=== PATIENT | male | born 1945 | race Caucasian/White ===

== ENCOUNTER 2018-06-15 15:54 | Emergency (ER) | payer OTHER ==
--- OUTSIDE RECORDS SUMMARY | 2018-06-15 15:56 | XMS REPORT ---
:1945 Author Organization eClinicalWorks Care Team Providers Name Role Phone GeorgetteParam lepe Provider Role Unavailable Encounters Encounter Location Date h & p [facility] May 03, 2015 Needs referral [facility] May 21, 2015 Social History Social History Element Qualifiers Date Reported Diet: . Do you follow a special diet? No May 03, 2015 Recreational drugs: . Do you use recreational drugs? NO May 03, 2015 Tobacco Use: . Are you a: former smoker May 03, 2015 Caffeine: . 2-3 CUPS/DAY May 03, 2015 Do you exercise? . Do you exercise? No May 03, 2015 Do you drink? . 1-2 BEERS/ 2 GLASSES OF WINE May 03, 2015 Summary Purpose eClinicalWorks Submission
--- OUTSIDE RECORDS SUMMARY | 2018-06-15 15:56 | XMS REPORT | Continuity of Care Document ---
:1945 Author Organization Interface Problems Problem Status Onset Classification Date Comments Source Date Reported TRAUMATIC Active [facility] SUBARACHNOID [address] [place] [address] Center CARMEN Active [facility] BILLING [address] [place] [address] LIFE FLIGHT # Active [place] [id number] [place] [address] Situational Active Diagnosis 12/25/2015 [facility] TRAUM SUBRAC HEM Active [facility] W/O [facility] Medications Medication Details Route Status Patient Ordering Order Source Instructions Provider Date Xanax 1 tablet Orally Active 0.5 MG Orally [place] 12/17/ [facility] Viagra 1 tablet Orally Active 50 MG Orally [place] [facility] needed Once a day 2014 [facility] Azilect 1 tablet Orally Active 1 MG Orally [place] [facility] Once [facility] day [facility] Oxybutynin 1 patch Transdermal Active 3.9 MG/24HR [place] [facility] skin [facility] Metoprolol 1 tablet Orally Active 25 MG Orally [place] [facility] Succinate ER Once a day [facility] Gabapentin 1 tablet Orally Active 100 mg Orally [place] [facility] twice a day Practice (bid) [facility] Carbidopa-Levodop 1 tablet Orally Active 25-100 MG [place] [facility] a ER every 6 Orally every 6 Practice hours hrs Assoc while awake Lovastatin 1 tablet Orally Active 20 MG Orally [place] [facility] with a Once a day Practice meal Assoc Digoxin 1 tablet Orally Active 250 MCG Orally [place] [facility] Once [facility] day [facility] Furosemide 1 tablet Orally Active 20 MG Orally [place] [facility] Once [facility] day [facility] Vitamin B Complex Unknown Orally Active Orally [facility] Pramipexole 1 tablet Orally Active 0.75 MG Orally [place] [facility] Dihydrochloride before Once a day Practice bedtime Assoc Ketoconazole Unknown Externally Active 2 % Externally [place] Eliquis 1 capsule Orally Active 5 MG Orally [place] [facility] twice a day Practice (bid) [facility] Folic Acid 1 tablet Orally Active 1 MG Orally [place] [facility] three times a [facility] day (tid) [facility] Fluconazole 1 tablet Orally Active 200 MG Orally [place] [facility] Once a week [facility] Quetiapine 1 tablet Orally Active 25 MG Orally [place] [facility] Fumarate once every Practice night prn Assoc Allergies, Adverse Reactions, Alerts Substance Category Reaction Severity Reaction Status Date Comments Source type Reported N.K.D.A. Adverse Info Not Adverse Active [facility] Reaction Available Reaction 6 [facility] Immunizations Immunization Date Given Site Status Last Comments Source Updated Influenza 12/17/2015 completed [facility] tetanus 12/17/2015 completed [facility] Pneumococcal 12/17/2015 completed [facility] Results Order Results Value Reference Date Interpretation Comments Source Name Range Chest Chest EXAM: XR CHEST 1 VIEW 06/14 - [facility] 1view DX 1view DX /2015 - [facility] DATE: 06/14/2016 10:08 AM CDT Read by: Melanie Garcia MD Dictated Date/time: 06/14/16 12:22 Electronically Signed by: Melanie Garcia MD 06/14/16 12:23 FINAL REPORT INDICATION: Abnormal chest sounds. FINDINGS: 2 AP semierect views of the chest are submitted without a prior study for comparison. The cardiothoracic ratio measures 18.8/37.5 cm. The aorta is slightly tortuous with aortic arch calcification. 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 The lungs are clear. No pleural effusions are identified. Note is made of thoracic spine osteophytes. IMPRESSION: The lungs are clear. Brain wo Brain wo EXAM: CT BRAIN WITHOUT CONTRAST 06/14 - [facility] contrast contrast /2015 - Medical CT CT This report was dictated by a Distribution Technician/Fellow. I have personally reviewed the images as Center well as the Resident's interpretation and agree with the findings. DATE: 06/14/2016 7:58 AM CDT Read by: James Rueda MD Resident: James Rueda MD Dictated Date/time: 06/14/16 07:58 Electronically Signed by: Anisa Nassar MD 06/14/16 08:55 FINAL REPORT INDICATION: Bleeding COMPARISON: None TECHNIQUE: Routine axial CT images of the brain were obtained . IV contrast: None. DLP: 1174 mGy-cm FINDINGS: Low-volume scattered areas of subarachnoid hemorrhage are seen within both frontal and parietal regions. 2 small hemorrhages are seen in the anterior right frontal lobe measuring up to 5 mm each. There is no mass effect, midline shift, or herniation. No hydrocephalus. The skull base and calvarium are intact. Incidental note of atherosclerosis involving both intracranial internal carotid arteries and left vertebral artery. IMPRESSION: 1. Scattered bilateral frontal and parietal subarachnoid hemorrhage. 2. 2 small hemorrhages in the right frontal lobe may represent contusions or shear injuries. The critical findings were discussed by the Emergency Room resident surety bond agent with Dr. Kwon in the Neuro ICU at 0310 hours on 06/14/16 Brain-Out Brain-Out EXAM: CT CERVICAL SPINE WITHOUT CONTRAST 06/13 [facility] /2015 - Medical Consult Consult This report was dictated by a Distribution Technician/ Fellow. I have personally reviewed the images as Center CT CT well as the Resident's interpretation and agree with the findings. DATE: 06/13/2016 9:10 PM CDT Read by: Tristen Fields MD Resident: Tristen Fields MD Dictated Date/time: 06/14/16 03:34 Electronically Signed by: Mt Yousif 06/14/16 07:44 FINAL REPORT INDICATION: Trauma. Outside hospital exam submitted for 2nd interpretation. COMPARISON: None TECHNIQUE: Study performed at [facility] on 2015 at 1736 hours. Volumetric acquisition of the cervical spine without contrast. Axial, sagittal and coronal reconstructions. IV contrast: None. DLP: 445 mGy-cm FINDINGS: The spine is imaged from the skull base to the level of T2. No acute fracture or malalignment is identified in the cervical spine. There are multilevel degenerative changes throughout the cervical spine, including disc osteophyte complex formation at the level of C3-C4, C5-C6 and C6- C7. Anterior thecal sac effacement noted at C6-C7 .There is mild multilevel uncovertebral hypertrophy, with mild narrowing of the neural foramina on the left at C5-C6 and C6-C7, and on the right at C6- C7. IMPRESSION: 1. No acute fracture or malalignment of the cervical spine. 2. Cervical spondylosis. Vital Signs Vital Sign Value Date Comments Source Weight 166 12/17/2015 [facility] Height 70 12/17/2015 [facility] Heart Rate 80 12/17/2015 [facility] Diastolic (mm Hg) 84 12/17/2015 [facility] Systolic (mm Hg) 134 12/17/2015 [facility] Encounters Location Location Encounter Encounter Reason Attending ADM DC Status Source Details Type Number For Provider Date Date Visit [facility] [id number] 05/03 05/03 [facility] [id number] /[id number] [facility] [id number] [facility] [id number] 05/03 05/03 [facility] [id number] /2014 [facility] [id number] [facility]oc eb65a0 [facility] [id number] 05/03 05/03 [facility] [id number] /2014 [facility] [id number] [facility]oc 4t615c [facility] [id number] 05/03 05/03 [facility] [id number] /2014 [facility] [id number] [facility]oc 819da7 [facility] [id number] 05/03 05/03 [facility] [id number] /2014 [facility] [id number]-db34da [facility]oc b435be [facility] [id number] 05/03 05/03 [facility] [id number] /2014 [facility] [id number] Assoc [id number] [facility] [id number] 05/03 05/03 [facility] [id number] /2014 [facility] [id number]-[id number] [facility]oc 8debb2 [facility] [id number] 05/03 05/03 [facility] [id number] /2014 [facility] [id number] [facility]oc 8536a5 [facility] [id number] 05/03 05/03 [facility] [id number] /2014 [facility] [id number] [facility]oc 59e9eb [facility] [id number] 05/21 05/21 [facility] [id number] /2014 [facility] [id number] Assoc 2c4b5c [facility] [id number] 05/21 05/21 [facility] [id number] /2014 [facility] [id number] Assoc c07d46 [facility] [id number] 05/21 05/21 [facility] [id number] /2014 [facility] [id number] [facility]oc abb04e [facility] [id number] 05/21 05/21 [facility] [id number] /2014 [facility] [id number] Assoc 70952k [facility] [id number] 05/21 05/21 [facility] [id number] /2014 [facility] [id number]-[id number] [facility]oc [id number] [facility] [id number] 05/21 05/21 [facility] [id number] /2014 [facility] [id number] [facility]oc 8afcd8 [facility] [id number] 05/21 05/21 [facility] [id number] /2014 [facility] [id number] Assoc [id number] [facility] [id number] 05/21 05/21 [facility] [id number] /2014 [facility] [id number]-lamu07 Assoc d4s841 [facility] [id number] 05/21 05/21 [facility] [id number] /2014 [facility] [id number] Assoc 95474a [facility] [id number] 06/06 06/06 [facility] [id number] /2014 [facility] [id number] [facility]oc a3cb59 [facility] [id number] 06/06 06/06 [facility] [id number] /2014 [facility] [id number] [facility]oc 6e0fb9 [facility] [id number] 06/06 06/06 [facility] [id number] /2014 [facility] [id number] [facility]oc bbfa1e [facility] [id number] 06/06 06/06 [facility] [id number] /2014 [facility] [id number] [facility]oc b8d72e [facility] [id number] 06/06 06/06 [facility] [id number] /2014 [facility] [id number] [facility]oc [id number] [facility] [id number] 06/06 06/06 [facility] [id number] /2014 [facility] [id number]-dhyj90 [facility]oc 4ddfcc [facility] [id number] 06/06 06/06 [facility] [id number] /2014 [facility] [id number]-[id number] [facility]oc 3bcdb8 [facility] [id number] 06/06 06/06 [facility] [id number] /2014 [facility] [id number] Assoc 2b6f07 [facility] [id number] 07/12 07/12 [facility] [id number] /2014 [facility] [id number] Assoc [id number] [facility] [id number] 07/12 07/12 [facility] [id number] /2014 [facility] [id number] Assoc [id number] [facility] [id number] 07/12 07/12 [facility] [id number] /2014 [facility] [id number]-[id number] [facility]oc 6c8c38 [facility] [id number] 07/12 07/12 [facility] [id number] /2014 [facility] [id number] Assoc 4e8ae3 [facility] [id number] 07/12 07/12 [facility] [id number] /2014 [facility] [id number] Assoc 1ea28b [facility] [id number]-9 07/12 07/12 [facility] [id number] /2014 [facility] 2cd-ff6acf Assoc ca2e00 [facility] [id number] 07/12 07/12 [facility] [id number] /2014 [facility] [id number] Assoc 959d3e [facility] [id number] 07/31 07/31 [facility] [id number] /2014 [facility] [id number]-[id number] Assoc 049e22 [facility] [id number] 07/31 07/31 [facility] [id number] /2014 [facility] [id number] Assoc 7e5c43 [facility] [id number] 07/31 07/31 [facility] [id number] /2014 [facility] [id number] Assoc 30d29c [facility] [id number]-7 07/31 07/31 [facility] [id number] /2014 [facility] [id number]-f0fab1 Assoc [id number] [facility] [id number]-[id number] 07/31 07/31 [facility] [id number] /2014 [facility] [id number] Assoc d12e22 [facility] [id number] 07/31 07/31 [facility] [id number] /2014 [facility] [id number] Assoc ba1a8e [facility] dc9c1679-7 08/01 08/01 [facility] [id number] /2014 [facility] [id number] [facility]oc 7edd38 [facility] [id number] 08/01 08/01 [facility] [id number]-b /2014 [facility] [id number] Assoc 636d26 [facility] [id number] 08/01 08/01 [facility] [id number] /2014 [facility] [id number] Assoc [id number] [facility] [id number]-[id number] 08/01 08/01 [facility] [id number] /2014 [facility] marilu-l9343y Assoc 75cd71 [facility] [id number] 08/01 08/01 [facility] [id number] /2014 [facility] [id number] Assoc vr5222 [facility] [id number] 08/01 08/01 [facility] [id number] /2014 [facility] [id number]-1305e4 Assoc 2r198d [facility] [id number] 09/05 09/05 [facility] medication [id number] /2014 [facility] [id number]-ad2fb4 Assoc 49ff4c [facility] [id number]-2 09/05 09/05 [facility] [id number] /2014 [facility] [id number]-3264b3 Assoc 3f808s [facility] [id number] 09/05 09/05 [facility] [id number] /2014 [facility] [id number] Assoc 0996b1 [facility] [id number] 09/05 09/05 [facility] [id number]-b /2014 [facility] [id number]-[id number] Assoc 9982ed [facility] [id number] 09/05 09/05 [facility] [id number] /2014 [facility] 7aa-a0ae25 Assoc cg529g [facility] [id number] 09/05 09/05 [facility] i8r-1vyt-3 /2014 [facility] [id number]-[id number] [facility]oc 1xn720 [facility] [id number]-9 09/24 09/24 [facility] [id number] /2014 [facility] [id number] Assoc v4386t [facility] 850y988j-1 09/24 09/24 [facility] [id number] /2014 [facility] [id number] Assoc i0s436 [facility] [id number] 09/24 09/24 [facility] [id number] /2014 [facility] [id number] Assoc [id number] [facility] [id number] 09/24 09/24 [facility] [id number] /2014 [facility] [id number] Assoc f8b5ae [facility] [id number] 09/24 09/24 [facility] [id number] /2014 [facility] [id number] Assoc 960498 [facility] needing [id number] 12/17 12/17 [facility] anixty [id number]-48eb-8 /2015 [facility] medication [id number]-[id number] Assoc 281d3e [facility] needing [id number]-[id number] 12/17 12/17 [facility] anixty w6i-4043-6 /2015 [facility] medication [id number] Assoc f1f82e [facility] needing 5vczj2v3-3 12/17 12/17 [facility] anixty [id number] /2015 [facility] medication [id number] Assoc 23f3c9 [facility] [id number]-3 12/17 12/17 [facility] anixty [id number] /2015 [facility] medication [id number] Assoc 4b5ff3 [facility] [id number] [facility] saray-[id number]-a /2015 [facility] [id number] Assoc 0dbd37 [facility] 3sfzpz2e-3 [facility] [id number]-[id number] /2015 [facility] [id number] Assoc 27434g [facility] mnby0z79-a [facility] [id number] /2015 [facility] [id number]-[id number] Assoc [id number] [facility] [id number]-f [facility] Advice [id number]-[id number] /2015 [facility] During amy-0e1db8 Assoc Business ce1e48 Hours [facility] 5m36jj1t-4 [facility] 489-4710-[id number] /2015 [facility] During annalise-c60acc Assoc Business cbcc3f Hours [facility] p8pr317z-[id number] 01/09 01/09 [facility] [id number] /2015 [facility] [id number] Assoc [id number] Procedures Procedure Code Date Perfomer Comments Source
--- OUTSIDE RECORDS SUMMARY | 2018-06-15 15:57 | XMS REPORT ---
:1945 Author Organization eClinicalWorks Care Team Providers Name Role Phone Param [place] Provider Role Unavailable Encounters Encounter Location Date Needs referral [facility] Jul 12, 2015 Needs referral [facility] Aug 01, 2015 Needs referral [facility] Jul 31, 2015 ED medication [facility] Sep 05, 2015 h & p [facility] May 03, 2015 Clinical Advice During Business Hours [facility] Dec Needs referral [facility] May 21, 2015 Refill [facility] January 10, 2016 Unknown [facility] June 06, 2015 Refill [facility] Jan 06, 2016 Refill [facility] Sep 24, 2015 needing anixty medication [facility] Dec 17, 2015 Medications Medication Code System Code Instructions Start Date End Date Status Dosage Xanax MEDISPAN [address] 0.5 MG Orally Dec 17, Active 1 tablet -01 once a day prn 2016 Social History Social History Element Qualifiers Date Reported Diet: . Do you follow a special diet? No January 07, 2016 Recreational drugs: . Do you use recreational drugs? NO January 07, 2016 Tobacco Use: . Are you a: former smoker January 07, 2016 Caffeine: . 2-3 CUPS/DAY January 07, 2016 Do you exercise? . Do you exercise? No January 07, 2016 Do you drink? . 1-2 BEERS/ 2 GLASSES OF WINE January 07, 2016 Summary Purpose eClinicalWorks Submission
--- OUTSIDE RECORDS SUMMARY | 2018-06-15 15:57 | XMS REPORT ---
:1945 Author Organization eClinicalWorks Care Team Providers Name Role Phone Param [place] Provider Role Unavailable Encounters Encounter Location Date Needs referral [facility] Jul 12, 2015 Needs referral [facility] Aug 01, 2015 Needs referral [facility] Jul 31, 2015 ED medication [facility] Sep 05, 2015 h & p [facility] May 03, 2015 Clinical Advice During Business Hours [facility] Dec Needs referral [facility] May 21, 2015 Unknown [facility] June 06, 2015 Refill [facility] Jan 06, 2016 Refill [facility] Sep 24, 2015 needing anixty medication [facility] Dec 17, 2015 Social History Social History Element Qualifiers [...] 2 GLASSES OF WINE January 07, 2016 Family history Qualifier Description Comment Date Reported Maternal Grandmother Comment not available January 07, 2016 Paternal Grandmother Comment not available January 07, 2016 Siblings Comment not available January 07, 2016 Maternal Grandfather Comment not available January 07, 2016 Children Comment not available January 07, 2016 Father Comment not available January 07, 2016 Paternal Grandfather Comment not available January 07, 2016 Mother Comment not available January 07, 2016 Other: Comment not available January 07, 2016 Summary Purpose eClinicalWorks Submission
--- OUTSIDE RECORDS SUMMARY | 2018-06-15 15:57 | XMS REPORT ---
:1945 Author Organization eClinicalWorks Care Team Providers Name Role Phone Param [place] Provider Role Unavailable Encounters Encounter Location Date Needs referral [facility] Jul 12, 2015 Needs referral [facility] Aug 01, 2015 Needs referral [facility] Jul 31, 2015 ED medication [facility] Sep 05, 2015 h & p [facility] May 03, 2015 Needs referral [facility] May 21, 2015 Unknown [facility] June 06, 2015 Medications Medication Code System Code Instructions Start Date End Date Status Dosage Viagra MEDISPAN 55809-516 50 MG Orally Once Sep 09, Oct 09, Active 1 tablet 0-30 a day 2014 2014 as needed Social History Social History Element Qualifiers Date [...]
--- OUTSIDE RECORDS SUMMARY | 2018-06-15 15:57 | XMS REPORT ---
:1945 Author Organization eClinicalWorks Care Team Providers Name Role Phone Param [place] Provider Role Unavailable Encounters Encounter Location Date Needs referral [facility] Jul 12, 2015 h & p [facility] May 03, 2015 Needs referral [facility] May 21, 2015 Unknown [facility] June 06, 2015 Social History Social History Element Qualifiers [...]
--- OUTSIDE RECORDS SUMMARY | 2018-06-15 15:57 | XMS REPORT ---
:1945 Author Organization eClinicalWorks Care Team Providers Name Role Phone Param [place] Provider Role Unavailable Allergies, Adverse Reactions, Alerts Substance Reaction Event Type N.K.D.A. Info Not Available Non Drug Allergy Encounters Encounter Location Date Needs referral [facility] Jul 12, 2015 Needs referral [facility] Aug 01, 2015 Needs referral [facility] Jul 31, 2015 ED medication [facility] Sep 05, 2015 h & p [facility] May 03, 2015 Needs referral [facility] May 21, 2015 Unknown [facility] June 06, 2015 Refill [facility] Sep 24, 2015 needing anixty medication [facility] Dec 17, 2015 Problems Problem Type Condition ICD-9 Code Onset Dates Condition Status Assessment Situational anxiety F41.8 Active Medications Medication Code System Code Instructions Start End Status Dosage Date Date Azilect MEDISPAN 65412-8 1 MG Orally Active 1 tablet 206-00 Once a day Oxybutynin MEDISPAN 83129-2 3.9 MG/24HR Active 1 patch to 322-02 Transdermal skin Metoprolol MEDISPAN 36951-5 25 MG Orally Active 1 tablet Succinate ER 281-01 Once a day Gabapentin MEDISPAN 04474-0 100 mg Orally Active 1 tablet 992-01 twice a day (bid) Carbidopa-Levodopa MEDISPAN 38270-9 25-100 MG Active 1 tablet ER 922-01 Orally every 6 every 6 hrs hours while awake Lovastatin MEDISPAN 61107-2 20 MG Orally Active 1 tablet 576-06 Once a day with a meal Digoxin MEDISPAN 63559-4 250 MCG Orally Active 1 tablet 822-01 Once a day Furosemide MEDISPAN 74120-5 20 MG Orally Active 1 tablet 297-25 Once a day Vitamin B Complex MEDISPAN 33301-6 Orally Active Unknown 5540 Pramipexole MEDISPAN 68543-9 0.75 MG Orally Active 1 tablet Dihydrochloride 019-98 Once a day before bedtime Xanax MEDISPAN 72600-6 0.5 MG Orally Dec 17, 1 tablet 055-01 Three times a 2016 day PRN Ketoconazole MEDISPAN 64490-8 2 % Externally Active Unknown 090-04 Eliquis MEDISPAN 38100-7 5 MG Orally Active 1 capsule 894-21 twice a day (bid) Folic Acid MEDISPAN 58156-5 1 MG Orally Active 1 tablet 507-19 three times a day (tid) Fluconazole MEDISPAN 69131-0 200 MG Orally Active 1 tablet 413-00 Once a week Quetiapine Fumarate MEDISPAN 51546-8 25 MG Orally Active 1 tablet 220-20 once every night prn Social History Social History Element Qualifiers Date Reported Diet: . Do you follow a special diet? No Dec 17, 2015 Recreational drugs: . Do you use recreational drugs? NO Dec 17, 2015 Tobacco Use: . Are you a: former smoker Dec 17, 2015 Caffeine: . 2-3 CUPS/DAY Dec 17, 2015 Do you exercise? . Do you exercise? No Dec 17, 2015 Do you drink? . 1-2 BEERS/ 2 GLASSES OF WINE Dec 17, 2015 Family history Qualifier Description Comment Date Reported Maternal Grandmother Comment not available Dec 17, 2015 Paternal Grandmother Comment not available Dec 17, 2015 Siblings Comment not available Dec 17, 2015 Maternal Grandfather Comment not available Dec 17, 2015 Children Comment not available Dec 17, 2015 Father Comment not available Dec 17, 2015 Paternal Grandfather Comment not available Dec 17, 2015 Mother Comment not available Dec 17, 2015 Other: Comment not available Dec 17, 2015 Vital Signs Date/Time: Dec 17, 2015 Weight 166 lbs Height 70 in Cardiac Monitoring Heart Rate 80 /min Blood Pressure Diastolic 84 mm Hg Blood Pressure Systolic 134 mm Hg Immunizations Vaccine Administration Date Influenza Dec 17, 2015 tetanus Dec 17, 2015 Pneumococcal Dec 17, 2015 Summary Purpose eClinicalWorks Submission
--- OUTSIDE RECORDS SUMMARY | 2018-06-15 15:57 | XMS REPORT ---
:1945 Author Organization [employer] Care Team Providers Name Role Phone Param [place] Provider Role Unavailable Encounters Encounter Location Date h & p [facility] May 03, 2015 Needs referral [facility] May 21, 2015 Unknown [facility] June 06, 2015 Social History Social History [...]
--- OUTSIDE RECORDS SUMMARY | 2018-06-15 15:57 | XMS REPORT ---
:1945 Author Organization e[employer]Works Care Team Providers Name Role Phone Param [place] Provider Role Unavailable Encounters Encounter Location Date Needs referral [facility] Jul 12, 2015 Needs referral [facility] Aug 01, 2015 Needs referral [facility] Jul 31, 2015 ED medication [facility] Sep 05, 2015 h & p [facility] May 03, 2015 Needs referral [facility] May 21, 2015 Unknown [facility] June 06, 2015 Refill [facility] Sep 24, 2015 Social History Social History Element Qualifiers [...]
--- OUTSIDE RECORDS SUMMARY | 2018-06-15 15:57 | XMS REPORT ---
:1945 Author Organization [employer]Works Care Team Providers Name Role Phone Param [place] Provider Role Unavailable Encounters Encounter Location Date Needs referral [facility] Jul 12, 2015 Needs referral [facility] Aug 01, 2015 Needs referral [facility] Jul 31, 2015 ED medication [facility] Sep 05, 2015 h & p [facility] May 03, 2015 Needs referral [facility] May 21, 2015 Unknown [facility] June 06, 2015 Refill [facility] Jan 06, 2016 Refill [facility] Sep 24, 2015 needing anixty medication [facility] Dec 17, 2015 Social History Social History [...]
--- NOTE | 2018-06-15 16:40 | RAD REPORT ---
EXAM DESCRIPTION: CT - Head Brain Wo Cont - 06/15/2018 4:29 pm CLINICAL HISTORY: Speech difficulty, unsteady gait, lightheaded, possible CVA COMPARISON: July 2016 TECHNIQUE: Axial 5 mm thick images of the head were obtained without IV contrast. All CT scans are performed using dose optimization technique as appropriate and may include automated exposure control or mA/KV adjustment according to patient size. FINDINGS: No intracranial hemorrhage, mass, edema or shift of mid-line structures. No acute cortical based infarction. No cortical edema or sulcal effacement. Mild to moderate atrophy and chronic ische dione changes are present. Ventricles are in proportion to volume loss. Intracranial findings are not s ubstantially different from 2016. Mastoid air cells and visualized portions of the paranasal sinuses are clear. No acute bony findings. IMPRESSION: Mild to moderate severity atrophy and chronic ischemic change similar to comparison. No acute findings identifiable. Chronic ischemic changes can mask nonhemorrhagic acute infarction. MR brain followup can be obtained if there is ongoing concern for acute ischemia.
[2018-06-15 16:52] LABS: Absolute Lymphocytes (CBC) 0.9 K/uL (0.7-4.9); Absolute Monocytes 0.6 K/uL (0.1-1.3); Absolute Neutrophil 7.7 K/uL (1.8-8.0); Basophils % 0.5 % (0-1.3); Eosinophils % 0.8 % (0-4.4); Hematocrit 43.3 % (39.6-49.0); MCH 31.3 pg (27.0-35.0); MCV 90.7 fL (80-100); Monocytes % 6.5 % (3.3-12.3); RBC Red Blood Cell Count 4.77 M/uL (4.33-5.43)
[2018-06-15 16:53] LABS: Protime INR 1.13
--- NOTE | 2018-06-15 16:55 | RAD REPORT ---
EXAM DESCRIPTION: RAD - Chest Single View - 06/15/2018 4:37 pm CLINICAL HISTORY: Increasing shortness of breath, dyspnea COMPARISON: March 2016 TECHNIQUE: AP portable chest image was obtained 1635 hours . FINDINGS: No focal infiltrate, mass or failure. Lung markings are similar to comparison. Pacemaker r emains in place. No new tube or line. Heart and vasculature are normal. No measurable pleural effusio n and no pneumothorax. No gross bony abnormality seen. No acute aortic findings suspected. IMPRESSION: No acute cardiopulmonary process. Chest is stable from March 2016.
--- NOTE | 2018-06-15 17:05 | EKG ---
Test Date: 2018-06-15 Test Time: 16:17:02 Business Services Tech: SHIRLEY MEASUREMENT RESULTS: Intervals: Rate: 110 HI: QRSD: 98 QT: 308 QTc: 416 [facility]: P: 94 HI: QRS: 8 T: 265 INTERPRETIVE STATEMENTS: Atrial flutter with variable AV block ST & T wave abnormality, non specific Abnormal ECG Compared to ECG 01/06/2018 10:51:22 Ventricular premature complex(es) no longer present ST (T wave) deviation still present Electronically Signed On 06-15-18 17:04:53 CDT by Berry Grayson
[2018-06-15 17:08] LABS: Albumin 4.1 g/dL (3.4-5.0); Bilirubin Direct 0.2 mg/dL (0-0.2); Bilirubin Total 0.7 mg/dL (0.2-1.0); Magnesium 2.5 mg/dL (1.8-2.4); Potassium 4.3 mmol/L (3.5-5.1); Protein, Total 7.7 g/dL (6.4-8.2)
--- NOTE | 2018-06-15 18:25 | ER ---
Nurse's Notes [facility] Name: Kevin Barajas Age: 73 yrs Sex: Male : 1945 Arrival Date: 06/15/2018 Time: 15:55 Bed 8 Private MD: Americo Ontiveros E Diagnosis: Dehydration Presentation: 06/15 16:12 Presenting complaint: Patient states: pt c/o difficulty speaking, hoarseness, dry iw mouth, increased difficulty walking, increased SOB, feeling light headed X 1 week. Transition of care: patient was not received from another setting of care. Onset of symptoms was June 08, 2018. Risk Assessment: Do you want to hurt yourself or someone else? Patient reports no desire to harm self or others. Initial Sepsis Screen: Does the patient meet any 2 criteria? No. Patient's initial sepsis screen is negative. Does the patient have a suspected source of infection? No. Patient's initial sepsis screen is negative. Care prior to arrival: None. 16:12 Method Of Arrival: Wheelchair iw 16:12 Acuity: KHLOE 3 iw Triage Assessment: 16:30 General: Appears in no apparent distress. comfortable, slender, well groomed, well sg developed, well nourished, Behavior is calm, cooperative, appropriate for age. Respiratory: Airway is patent Respiratory effort is even, unlabored, Respiratory pattern is regular, symmetrical. Historical: - Allergies: 16:44 No Known Allergies; iw - Home Meds: 16:23 atorvastatin 10 mg oral tab 1 tab once daily [Active]; oxybutynin chloride 15 mg Oral iw tr24 1 tab once daily [Active]; quetiapine 25 mg oral tab nightly [Active]; Nuplazid 17 mg oral tab 2 tabs once daily [Active]; metoprolol succinate 100 mg oral Tb24 2 tabs once daily [Active]; metoprolol tartrate 50 mg Oral tab 1 tab nightly [Active]; Trintellix 20 mg oral tab once daily [Active]; bupropion HCl 50 mg Oral tab nightly [Active]; omeprazole 40 mg Oral cpDR 1 cap once daily [Active]; carbidopa-levodopa 25-100 mg Oral tab 1 tab 3 times per day [Active]; - PMHx: 16:23 Atrial Fib; Depression; Hypertension; Pacemaker; Parkinsons; iw - PSHx: 16:23 None; iw - Immunization history:: Adult Immunizations up to date. - Ebola Screening: : Patient negative for fever greater than or equal to 101.5 degrees Fahrenheit, and additional compatible Ebola Virus Disease symptoms Patient denies exposure to infectious person Patient denies travel to an Ebola-affected area in the 21 days before illness onset No symptoms or risks identified at this time. - Social history:: Smoking status: Patient/guardian denies using tobacco. Screenin:00 Abuse screen: Denies threats or abuse. Denies injuries from another. Nutritional sg screening: No deficits noted. Tuberculosis screening: No symptoms or risk factors identified. Never had TB. Fall Risk None identified. Assessment: 16:30 General: Appears in no apparent distress. Behavior is calm, cooperative, appropriate sg for age. Pain: Denies pain. Neuro: Level of Consciousness is awake, alert, obeys commands, Oriented to person, place, time, Tamale Machine Feeder are equal bilaterally Moves all extremities. Full function Gait is steady, with a cane. Speech is normal, Facial symmetry appears normal. Cardiovascular: Heart tones S1 S2 present Capillary refill is brisk in bilateral fingers Patient's skin is warm and dry. Chest pain is denied. Respiratory: Airway is patent Respiratory effort is even, unlabored, Breath sounds are clear. GI: No signs and/or symptoms were reported involving the gastrointestinal system. : No signs and/or symptoms were reported regarding the genitourinary system. EENT: Oral mucosa is dry. Throat is pink. Derm: Skin is intact, is thin, Skin is dry, Skin is pale, Skin temperature is warm. Musculoskeletal: Circulation, motion, and sensation intact. Range of motion: intact in all extremities, Reports increase in immobility, able to walk but worsening in his gait. " cant take really big steps". Vital Signs: 16:31 BP 148 / 99; Pulse 101; Resp 16 S; Temp 98.2; Pulse Ox 97% on R/A; Pain 0/10; iw 16:38 BP 148 / 92; Pulse 106; Resp 17; Pulse Ox 99% on R/A; Pain 0/10; sg NIH Stroke Scale Scores: 19:28 NIHSS Score: 0 jr8 ED Course: 15:55 Patient arrived in ED. rg4 15:55 Americo Ontiveros MD is Private Physician. rg4 16:01 Ronald Keyes PA is PHCP. jr8 16:01 Almas Nunez MD is Attending Physician. jr8 16:17 Triage completed. iw 16:17 Ej Blackwell, RN is Primary Nurse. sv 16:22 EKG done, by fuel verification technician. reviewed by Ronald MCKEON. sm3 16:26 Arm band placed on. iw 16:29 CT Head Brain wo Cont In Process Unspecified. EDMS 16:32 X-ray completed. Portable x-ray completed in exam room. Patient tolerated procedure ml well. 16:33 XRAY Chest (1 view) In Process Unspecified. EDMS 16:35 CT completed. Patient tolerated procedure well. Patient moved back from CT. vm2 16:43 Initial lab(s) drawn, by me, sent to lab. Inserted saline lock: 22 gauge in right jb1 antecubital area, using aseptic technique. Blood collected. 16:45 No provider procedures requiring assistance completed. sg 16:45 Patient has correct armband on for positive identification. Placed in gown. Bed in low sg position. Side rails up X2. model engine mechanic on. Pulse ox on. NIBP on. Warm blanket given. Head of bed elevated. 17:08 Primary Nurse role handed off by Ej Blackwell, TC bd 18:23 Americo Ontiveros MD is Referral Physician. jr8 18:49 IV discontinued, intact, bleeding controlled, No redness/swelling at site. Pressure sg dressing applied. Administered Medications: 16:59 Drug: NS 0.9% 1000 ml Route: IV; Rate: 1000 ml; Site: right antecubital; sg Outcome: 18:24 Discharge ordered by . jr8 18:42 Discharged to home ambulatory, with family. sg 18:42 Condition: good 18:42 Discharge instructions given to patient, Instructed on discharge instructions, follow up and referral plans. safety practices, dehydration Demonstrated understanding of instructions, follow-up care. 18:44 Patient left the ED. sg NIH Stroke Scale - NIH Stroke Score Date: 06/15/2018 Time: 19:28 Total Score = 0 1a. Level of Consciousness (LOC) - 0(Alert) 1b. Level of Consciousness (LOC) (Year \\T\\ Age) - 0(Both) 1c. LOC Commands (Open \\T\\ Closes Eyes/Tufting Machine Operator) - 0(Both) 2. Best Gaze (Lateral Gaze Paresis) - 0(Normal) 3. Visual Field Loss - 0(No visual loss) 4. Facial Palsy - 0(Normal) 5a. Left Arm: Motor (10-second hold) - 0(No drift) 5b. Right Arm: Motor (10-second hold) - 0(No drift) 6a. Left Leg: Motor (5-second hold - always test supine) - 0(No drift) 6b. Right Leg: Motor (5-second hold - always test supine) - 0(No drift) 7. Limb Ataxia (finger/nose \\T\\ heel/pizarro - test with eyes open) - 0(Absent) 8. Sensory Loss (pinprick arms/legs/face) - 0(Normal) 9. Best Language: Aphasia (description/naming/reading) - 0(No aphasia) 10. Dysarthria (speech clarity - read or repeat words) - 0(Normal) 11. Extinction and Inattention (visual/tactile/auditory/spatial/personal) - 0(No abnormality) Initials: rhonda Signatures: Dispatcher [employer] Sahil Reyes Barbara bd Verde, Stephanie, RN RN Ej Hazel, RN RN Lea Renee, RN TC Taylor, Ronald Rendon PA PA jr8 Garcia, Rubi rg4 McGuire, Victoria vm2 Montes, Shakira 3
--- NOTE | 2018-06-15 18:25 | EDPHYS ---
Physician Documentation [facility] Name: Kevin Barajas Age: 73 yrs Sex: Male : 1945 Arrival Date: 06/15/2018 Time: 15:55 Bed 8 Private MD: Americo Ontiveros E ED Physician Almas Nunez HPI: 06/15 19:28 This 73 yrs old Male presents to ER via Wheelchair with complaints of Trouble jr8 Walking, Breathing Difficulty. 19:28 physical therapy resident stated that she sees patient about once a week. Stated that his voice seems jr8 more muffled. Stated that he is more weak than normal as well. Patient currently is without complaint other then feels fatigued . Severity of symptoms: At their worst the symptoms were mild in the emergency department the symptoms are unchanged. The patient has not experienced similar symptoms in the past. The patient has not recently seen a physician. Historical: - Allergies: 16:44 No Known Allergies; iw - Home Meds: 16:23 atorvastatin 10 mg oral tab 1 tab once daily [Active]; oxybutynin chloride 15 mg Oral iw tr24 1 tab once daily [Active]; quetiapine 25 mg oral tab nightly [Active]; Nuplazid 17 mg oral tab 2 tabs once daily [Active]; metoprolol succinate 100 mg oral Tb24 2 tabs once daily [Active]; metoprolol tartrate 50 mg Oral tab 1 tab nightly [Active]; Trintellix 20 mg oral tab once daily [Active]; bupropion HCl 50 mg Oral tab nightly [Active]; omeprazole 40 mg Oral cpDR 1 cap once daily [Active]; carbidopa-levodopa 25-100 mg Oral tab 1 tab 3 times per day [Active]; - PMHx: 16:23 Atrial Fib; Depression; Hypertension; Pacemaker; Parkinsons; iw - PSHx: 16:23 None; iw - Immunization history:: Adult Immunizations up to date. - Ebola Screening: : Patient negative for fever greater than or equal to 101.5 degrees Fahrenheit, and additional compatible Ebola Virus Disease symptoms Patient denies exposure to infectious person Patient denies travel to an Ebola-affected area in the 21 days before illness onset No symptoms or risks identified at this time. - Social history:: Smoking status: Patient/guardian denies using tobacco. ROS: 19:28 Eyes: Negative for injury, pain, redness, and discharge, ENT: Negative for injury, jr8 pain, and discharge, Neck: Negative for injury, pain, and swelling, Cardiovascular: Negative for chest pain, palpitations, and edema, Respiratory: Negative for shortness of breath, cough, wheezing, and pleuritic chest pain, Abdomen/GI: Negative for abdominal pain, nausea, vomiting, diarrhea, and constipation, Back: Negative for injury and pain, MS/Extremity: Negative for injury and deformity, Skin: Negative for injury, rash, and discoloration. 19:28 Neuro: Positive for weakness, Negative for altered mental status, dizziness, gait disturbance, headache, hearing loss, loss of consciousness, numbness, seizure activity, speech changes, syncope, near syncope, tingling, tinnitus, tremor, visual changes. Exam: 19:28 Eyes: Pupils equal round and reactive to light, extra-ocular motions intact. Lids and jr8 lashes normal. Conjunctiva and sclera are non-icteric and not injected. Cornea within normal limits. Periorbital areas with no swelling, redness, or edema. ENT: Nares patent. No nasal discharge, no septal abnormalities noted. Tympanic membranes are normal and external auditory canals are clear. Oropharynx with no redness, swelling, or masses, exudates, or evidence of obstruction, uvula midline. Mucous membranes moist. Neck: Trachea midline, no thyromegaly or masses palpated, and no cervical lymphadenopathy. Supple, full range of motion without nuchal rigidity, or vertebral point tenderness. No Meningismus. Cardiovascular: Regular rate and rhythm with a normal S1 and S2. No gallops, murmurs, or rubs. Normal PMI, no JVD. No pulse deficits. Respiratory: Lungs have equal breath sounds bilaterally, clear to auscultation and percussion. No rales, rhonchi or wheezes noted. No increased work of breathing, no retractions or nasal flaring. Abdomen/GI: Soft, non-tender, with normal bowel sounds. No distension or tympany. No guarding or rebound. No evidence of tenderness throughout. Back: No spinal tenderness. No costovertebral tenderness. Full range of motion. Skin: Warm, dry with normal turgor. Normal color with no rashes, no lesions, and no evidence of cellulitis. MS/ Extremity: Pulses equal, no cyanosis. Neurovascular intact. Full, normal range of motion. Neuro: Awake and alert, GCS 15, oriented to person, place, time, and situation. Cranial nerves II-XII grossly intact. Motor strength 5/5 in all extremities. Sensory grossly intact. Cerebellar exam normal. Normal gait. Vital Signs: 16:31 BP 148 / 99; Pulse 101; Resp 16 S; Temp 98.2; Pulse Ox 97% on R/A; Pain 0/10; iw 16:38 BP 148 / 92; Pulse 106; Resp 17; Pulse Ox 99% on R/A; Pain 0/10; sg NIH Stroke Scale Scores: 19:28 NIHSS Score: 0 [facility] MDM: 16:01 Patient medically screened. [facility] 18:22 Data reviewed: vital signs, nurses notes, lab test result(s), EKG, radiologic studies, [facility] CT scan, plain films, and as a result, I will discharge patient. Data interpreted: Pulse oximetry: on room air is 99 %. Interpretation: normal. Counseling: I had a detailed discussion with the patient and/or guardian regarding: the historical points, exam findings, and any diagnostic results supporting the discharge/admit diagnosis, lab results, radiology results, the need for outpatient follow up, a family practitioner, to return to the emergency department if symptoms worsen or persist or if there are any questions or concerns that arise at home. 19:28 ED course: Patient stated that he feels much better after hydration. Will send home to [facility] f/u with PCP and neurologist. To come back if worse . 06/15 16:16 Order name: Basic Metabolic Panel; Complete Time: 17:14 06/15 16:16 Order name: CBC with Diff; Complete Time: 17:14 06/15 16:16 Order name: CPK; Complete Time: 17:14 06/15 16:16 Order name: LFT's; Complete Time: 17:14 06/15 16:16 Order name: Magnesium; Complete Time: 17:14 06/15 16:16 Order name: NT PRO-BNP; Complete Time: 17:14 06/15 16:16 Order name: PT-INR; Complete Time: 17:14 06/15 16:16 Order name: XRAY Chest (1 view); Complete Time: 17:14 [facility] 06/15 16:16 Order name: EKG; Complete Time: 16:16 [facility] 06/15 16:16 Order name: Cardiac monitoring [facility] 06/15 16:16 Order name: CT Head Brain wo Cont; Complete Time: 16:41 [facility] 06/15 18:18 Order name: Urine Dipstick--Ancillary (enter results) bd 06/15 18:20 Order name: Urine Dipstick-Ancillary EDMS 06/15 16:16 Order name: EKG - Nurse/Tech; Complete Time: 16:43 [facility] 06/15 16:16 Order name: IV Saline Lock; Complete Time: 16:44 [facility] 06/15 16:16 Order name: Labs collected and sent; Complete Time: 16:44 [facility] 06/15 16:16 Order name: O2 Per Protocol; Complete Time: 16:44 [facility] 06/15 16:16 Order name: O2 Sat Monitoring; Complete Time: 16:44 [facility] 06/15 16:16 Order name: Urine Dipstick-Ancillary (obtain specimen) [facility] Administered Medications: 16:59 Drug: NS 0.9% 1000 ml Route: IV; Rate: 1000 ml; Site: right antecubital; sg Disposition: 18:47 Co-signature as Attending Physician, Almas Nunez MD. rn Disposition: 06/15/18 18:24 Discharged to Home. Impression: Dehydration. - Condition is Stable. - Discharge Instructions: Dehydration, Elderly. - Medication Reconciliation Form, Thank You Letter, Antibiotic Education, Prescription Opioid Use form. - Follow up: Americo Ontiveros MD; When: 2 - 3 days; Reason: Recheck today's complaints, Continuance of care, Re-evaluation by your physician. - Problem is new. - Symptoms have improved. NIH Stroke Scale - NIH Stroke Score Date: 06/15/2018 Time: 19:28 Total Score = 0 1a. Level of Consciousness (LOC) - 0(Alert) 1b. Level of Consciousness (LOC) (Year \T\ Age) - 0(Both) 1c. LOC Commands (Open \T\ Closes Eyes/Estimator Printing) - 0(Both) 2. Best Gaze (Lateral Gaze Paresis) - 0(Normal) 3. Visual Field Loss - 0(No visual loss) 4. Facial Palsy - 0(Normal) 5a. Left Arm: Motor (10-second hold) - 0(No drift) 5b. Right Arm: Motor (10-second hold) - 0(No drift) 6a. Left Leg: Motor (5-second hold - always test supine) - 0(No drift) 6b. Right Leg: Motor (5-second hold - always test supine) - 0(No drift) 7. Limb Ataxia (finger/nose \T\ heel/pizarro - test with eyes open) - 0(Absent) 8. Sensory Loss (pinprick arms/legs/face) - 0(Normal) 9. Best Language: Aphasia (description/naming/reading) - 0(No aphasia) 10. Dysarthria (speech clarity - read or repeat words) - 0(Normal) 11. Extinction and Inattention (visual/tactile/auditory/spatial/personal) - 0(No abnormality) Initials: rhonda Signatures: Dispatcher [employer] EDMS Ej Blackwell RN RN sg Lea Nichole RN RN iw Almas Nunez MD MD rn Roszak, Josh, PA PA jr8 Corrections: (The following items were deleted from the chart) 18:44 18:24 06/15/2018 18:24 Discharged to Home. Impression: Dehydration. Condition sg is Stable. Forms are Medication Reconciliation Form, Thank You Letter, Antibiotic Education, Prescription Opioid Use. Follow up: Americo Ontiveros; When: 2 - 3 days; Reason: Recheck today's complaints, Continuance of care, Re-evaluation by your physician. Problem is new. Symptoms have improved. jr8
[2018-06-15 18:52] LABS: Urine Blood NEGATIVE (NEG); Urine Glucose NEGATIVE (NEG); Urine Protein 1+ (NEG); Urine Specific Gravity 1.025 (1.005-1.030)
[2018-06-15 19:01] VITALS: TEMP 98.2
[2018-06-15 19:02] VITALS: BP 148/92; O2SAT 99
== END 2018-06-15 18:44 | disposition home or self-care (01) ==
LOC: ER 15:54
DX: E86.0 Dehydration (principal); I10 Essential (primary) hypertension; F32.9 Major depressive disorder, single episode, unspecified; G20 Parkinson's disease; I48.91 Unspecified atrial fibrillation; Z79.01 Long term (current) use of anticoagulants; Z95.0 Presence of cardiac pacemaker
CPT/HCPCS: 36415; 70450; 71045; 80048; 80076; 81003; 82550; 83735; 83880; 85025; 85610; 93005; 99285

== ENCOUNTER 2018-08-04 06:42 | Day surgery (SDC) | payer OTHER ==
[2018-08-02 08:46] LABS: Potassium 3.8 mmol/L (3.5-5.1)
[2018-08-02 08:49] LABS: Absolute Monocytes 0.6 K/uL (0.1-1.3); Absolute Neutrophil 6.8 K/uL (1.8-8.0); Basophils % 0.4 % (0-1.3); Eosinophils % 1.4 % (0-4.4); Hematocrit 39.5 % (39.6-49.0); Lymphocytes % 11.4 % (15.3-44.8); MCH 31.8 pg (27.0-35.0); MCV 91.5 fL (80-100); MPV 7.6 fL (7.6-11.3); Monocytes % 7.3 % (3.3-12.3); RBC Red Blood Cell Count 4.32 M/uL (4.33-5.43)
[2018-08-02 09:10] LABS: Protime INR 1.64
--- OUTSIDE RECORDS SUMMARY | 2018-08-04 06:46 | XMS REPORT ---
:1945 Author Organization [employer] Care Team Providers Name Role Phone Param [place] Provider Role Unavailable Encounters Encounter Location Date h & p [facility] May 03, 2015 Needs referral [facility] May 21, 2015 Unknown [facility] June 06, 2015 Social History Social [...]
--- OUTSIDE RECORDS SUMMARY | 2018-08-04 06:46 | XMS REPORT ---
:1945 Author Organization [employer] Care Team Providers Name Role Phone Param [place] Provider Role Unavailable Encounters Encounter Location Date Needs referral [facility] Jul 12, [address] [facility] Aug 01[facility] [address] [facility] Jul 31, [address] [facility] Sep 05, 2015 h & p [facility] May 03, [address] [facility] May 21, [address] [facility] June 06, [address] [facility] Jan 06, [address] [facility] Sep 24, 2015 needing anixty medication [facility] Dec 17, 2015 Social History Social [...]
--- OUTSIDE RECORDS SUMMARY | 2018-08-04 06:46 | XMS REPORT ---
:1945 Author Organization [employer] Care Team Providers Name Role Phone Param [place] Provider Role Unavailable Encounters Encounter Location Date Needs referral [facility] Jul 12, 2015 Needs referral [facility] Aug 01, 2015 Needs referral [facility] Jul 31, 2015 ED medication [facility] Sep 05, 2015 h & p [facility] May 03, 2015 Clinical Advice During Business Hours [facility] Dec Needs referral [facility] May 21, 2015 Unknown [facility] June 06, 2015 Refill [facility] Jan 06, 2016 Refill [facility] Sep 24, 2015 needing anixty medication [facility] Dec 17, 2015 Social History [...]
--- OUTSIDE RECORDS SUMMARY | 2018-08-04 06:46 | XMS REPORT ---
:1945 Author Organization [employer] Care Team Providers Name Role Phone GeorgetteParam lepe Provider Role Unavailable Encounters Encounter Location Date h & p [facility] May 03, 2015 Needs referral [facility] May 21, 2015 Social History Social History [...]
--- OUTSIDE RECORDS SUMMARY | 2018-08-04 06:46 | XMS REPORT | Continuity of Care Document ---
:1945 Author Organization Interface Problems Problem Status Onset Classification Date Comments Source Date Reported TRAUMATIC Active [facility] SUBARACHNOID [address] [place] [address] Center CARMEN Active [facility] BILLING [address] [place] [address] LIFE FLIGHT # Active [place] [id number] [place] [address] Situational Active Diagnosis 12/25/2015 [facility] TRAUM SUBRAC HEM Active [facility] W/O [facility] Medications Medication Details Route Status Patient Ordering Order Source Instructions Provider Date Xanax 1 tablet Orally Active 0.5 MG Orally Georgette 12/17/ [place] [facility] prn [facility] Viagra 1 tablet Orally Active 50 MG Orally [place] [facility] as needed Once a day [...] EXAM: XR CHEST 1 VIEW 06/14 - [facility] 1view DX 1view DX /2015 - [facility] DATE: 06/14/2016 10:08 AM CDT Read by: [...] EXAM: CT BRAIN WITHOUT CONTRAST 06/14 - [facility] contrast contrast /2015 - Medical CT CT This report was dictated by a [employer] President/Fellow. I have personally reviewed the images as Center well as the Resident's interpretation and agree with the findings. DATE: 06/14/2016 7:58 AM CDT Read by: James Rueda MD Resident: aJmes Rueda MD Dictated Date/time: 06/14/16 07:58 Electronically [...] were discussed by the Emergency Room resident retail sales professional with Dr. Kwon in the Neuro ICU at 0310 hours on 06/14/16 Brain-Out Brain-Out EXAM: CT CERVICAL SPINE WITHOUT CONTRAST 06/13 [facility] /2015 - Medical Consult Consult This report was dictated by a [employer] President/ Fellow. I have personally reviewed the images as Center CT CT well as the Resident's interpretation and agree with the findings. DATE: 06/13/2016 9:10 PM CDT Read by: Tristen Fields MD Resident: Tristen Fields MD Dictated Date/time: 06/14/16 03:34 Electronically Signed by: Mt Yousif 06/14/16 07:44 FINAL REPORT INDICATION: Trauma. Outside hospital exam submitted for 2nd interpretation. COMPARISON: None TECHNIQUE: Study performed at [facility] on 2015 at 1736 hours. Volumetric acquisition [...] Date Visit [facility] [id number] 05/03 05/03 [facility] [id number] /[id number] [id number] [facility] [id number] 05/03 05/03 [facility] [id number] /2014 [facility] [id number]-imdr82 [facility]oc eb65a0 [facility] [id number] 05/03 05/03 [facility] [id number] /2014 [facility] [id number] [facility]oc 8d050c [facility] [id number] 05/03 05/03 [facility] [id number] /2014 [facility] [id number]-ef78b9 [facility]oc 819da7 [facility] [id number] 05/03 05/03 [facility] [id number] /2014 [facility] fce-db34da [facility]oc b435be [facility] [id number] 05/03 05/03 [facility] [id number] /2014 [facility] [id number] Assoc [id number] [facility] [id number]-0 05/03 05/03 [facility] [id number] /2014 [facility] [id number]-5a0cba [facility]oc 8debb2 [facility] [id number] 05/03 05/03 [facility] [id number] /2014 [facility] [id number] [facility]oc 8536a5 [facility] [id number] 05/03 05/03 [facility] [id number] /2014 [facility] [id number]-059s86 [facility]oc 59e9eb [facility] [id number]-[id number] 05/21 05/21 [facility] referral [id number] /2014 [facility] [id number] [facility]oc 2c4b5c [facility] [id number] 05/21 05/21 [facility] [id number] /2014 [facility] [id number] Assoc c07d46 [facility] [id number] 05/21 05/21 [facility] [id number] /2014 [facility] [id number]-d4f76e [facility]oc abb04e [facility] [id number]-s 05/21 05/21 [facility] [id number] /2014 [facility] 86b-4fdbee Assoc 74450i [facility] [id number] 05/21 05/21 [facility] [id number] /2014 [facility] 2m1-ph51iq [facility] 92b772 [facility] [id number]-r 05/21 05/21 [facility] [id number]-[id number] /2014 [facility] 7z4-3ymxy1 [facility]oc 8afcd8 [facility] [id number] 05/21 05/21 [facility] [id number] /2014 [facility] [id number] Assoc 160308 [facility] [id number] 05/21 05/21 [facility] [id number]-j /2014 [facility] r5b-welg12 [facility]oc u6v782 [facility] [id number] 05/21 05/21 [facility] [id number] /2014 [facility] [id number] [facility]oc 34229n [facility] [id number] 06/06 06/06 [facility] [id number] /2014 [facility] [id number] [facility]oc a3cb59 [facility] [id number] 06/06 06/06 [facility] [id number] /2014 [facility] [id number] [facility]oc 6e0fb9 [facility] [id number] 06/06 06/06 [facility] [id number] /2014 [facility] [id number]-89fd01 Assoc bbfa1e [facility] [id number] 06/06 06/06 [facility] [id number] /2014 [facility] [id number]-sm386c [facility]oc b8d72e [facility] [id number] 06/06 06/06 [facility] [id number] /2014 [facility] [id number]-ano8q9 Assoc [id number] [facility] [id number] 06/06 06/06 [facility] [id number] /2014 [facility] [id number]-fcnv28 Assoc 4ddfcc [facility] [id number] 06/06 06/06 [facility] [id number] /2014 [facility] [id number]-[id number] [facility] 3bcdb8 [facility] [id number] 06/06 06/06 [facility] [id number] /2014 [facility] [id number] [facility]oc 2b6f07 [facility] [id number] 07/12 07/12 [facility] [id number] /2014 [facility] [id number]-bbdc61 Assoc [id number] [facility] [id number] 07/12 07/12 [facility] [id number] /2014 [facility] [id number] Assoc n51784 [facility] [id number] 07/12 07/12 [facility] [id number] /2014 [facility] [id number]-[id number] [facility]oc 6c8c38 [facility] [id number]-[id number] 07/12 07/12 [facility] [id number] /2014 [facility] [id number]-cb7952 Assoc 4e8ae3 [facility] [id number] 07/12 07/12 [facility] [id number] /2014 [facility] [id number] [facility]oc 1ea28b [facility] 8321m08r-7 07/12 07/12 [facility] [id number]-1 /2014 [facility] 2cd-ff6acf Assoc ca2e00 [facility] [id number] 07/12 07/12 [facility] [id number] /2014 [facility] [id number] Assoc 959d3e [facility] [id number] 07/31 07/31 [facility] [id number] /2014 [facility] [id number]-d76bt1 [facility]oc 049e22 [facility] [id number]-m 07/31 07/31 [facility] [id number] /2014 [facility] [id number] Assoc 7e5c43 [facility] [id number] 07/31 07/31 [facility] [id number] /2014 [facility] [id number]-w6731b Assoc 30d29c [facility] 7996q4nz-5 07/31 07/31 [facility] [id number] /2014 [facility] 07b-f0fab1 Assoc [id number] [facility] ey61porq-0 07/31 07/31 [facility] [id number] /2014 [facility] [id number] Assoc d12e22 [facility] [id number] 07/31 07/31 [facility] [id number]-a /2014 [facility] k15-w78p7j Assoc ba1a8e [facility] [id number] 08/01 08/01 [facility] [id number] /2014 [facility] z3h-r23sfi [facility] 7edd38 [facility] 7c06miq6-0 08/01 08/01 [facility] [id number]-b /2014 [facility] [id number] Assoc 636d26 [facility] [id number]-p 08/01 08/01 [facility] [id number]-[id number] /2014 [facility] [id number] Assoc 287681 [facility] [id number]-5 08/01 08/01 [facility] [id number] /2014 [facility] marilu-c9273e [facility]oc 75cd71 [facility] [id number] 08/01 08/01 [facility] [id number] /2014 [facility] [id number]-apo573 Assoc mr1004 [facility] [id number] 08/01 08/01 [facility] [id number] /2014 [facility] dda-1305e4 Assoc 2s388h [facility] [id number]-j 09/05 09/05 [facility] medication [id number] /2014 [facility] [id number]-ad2fb4 [facility]oc 49ff4c [facility] [id number]-2 09/05 09/05 [facility] medication [id number] /2014 [facility] 14e-3264b3 Assoc 9k836z [facility] [id number] 09/05 09/05 [facility] medication [id number]-[id number] /2014 [facility] [id number] Assoc 0996b1 [facility] [id number] 09/05 09/05 [facility] medication [id number]-b /2014 [facility] [id number]-a7f2b3 Assoc 9982ed [facility] [id number]-q 09/05 09/05 [facility] medication [id number] /2014 [facility] 7aa-a0ae25 Assoc gm323r [facility] [id number] 09/05 09/05 [facility] medication [id number]-9 /2014 [facility] df1-fb6d51 [facility]oc 1md034 [facility] [id number]-3 09/24 09/24 [facility] [id number] /2014 [facility] [id number] Assoc c8695j [facility] [id number]-1 09/24 09/24 [facility] [id number] /2014 [facility] [id number] Assoc b6j193 [facility] [id number] 09/24 09/24 [facility] [id number] /2014 [facility] [id number] Assoc [id number] [facility] [id number] 09/24 09/24 [facility] [id number] /2014 [facility] [id number] Assoc f8b5ae [facility] [id number] 09/24 09/24 [facility] [id number] /2014 [facility] [id number] Assoc 873583 [facility] needing [id number]-n 12/17 12/17 [facility] anixty [id number]-48eb-8 /2015 [facility] medication [id number]-mwj7s4 Assoc 281d3e [facility] 7826v84a-m 12/17 12/17 [facility] anixty [id number]-2772-3 /2015 [facility] medication [id number] Assoc f1f82e [facility] 3lpcm4k9-2 12/17 12/17 [facility] anixty [id number] /2015 [facility] medication [id number]-n23t91 Assoc 23f3c9 [facility] [id number]-1 12/17 12/17 [facility] anixty [id number] /2015 [facility] medication [id number] Assoc 4b5ff3 [facility] [id number] [facility] saray-[id number]-a /2015 [facility] [id number] Assoc 0dbd37 [facility] [id number]-4 [facility] [id number] /2015 [facility] [id number] Assoc 03649l [facility] ebhm7q74-p [facility] [id number] /2015 [facility] [id number]-0910be Assoc [id number] [facility] 14j0v15x-z [facility] Advice [id number]-4769-[id number] /2015 [facility] During amy-0e1db8 Assoc Business ce1e48 Hours [facility] 0p70ry5c-7 [facility] Advice 489-4710-b /2015 [facility] During annalise-c60acc Assoc Business cbcc3f Hours [facility] y6go429e-8 01/09 01/09 [facility] [id number] /2015 [facility] [id number]-[id number] Assoc [id number] Procedures Procedure Code Date Perfomer Comments Source
--- OUTSIDE RECORDS SUMMARY | 2018-08-04 06:46 | XMS REPORT ---
:1945 Author Organization eClinicalWorks Care Team Providers Name Role Phone Param [place] Provider Role Unavailable Encounters Encounter Location Date Needs referral [facility] Jul 12, 2015 Needs referral [facility] Aug 01, 2015 Needs referral [facility] Jul 31, 2015 ED medication [facility] Sep 05, 2015 h & p [facility] May 03, 2015 Needs referral [facility] May 21, 2015 Unknown [facility] June 06, 2015 Refill [facility] Sep 24, 2015 Social History Social History [...]
--- OUTSIDE RECORDS SUMMARY | 2018-08-04 06:46 | XMS REPORT ---
:1945 Author Organization eClinicalWorks Care Team Providers Name Role Phone Parma [place]omino Provider Role Unavailable Allergies, Adverse Reactions, Alerts Substance Reaction Event Type N.K.D.A. Info Not Available Non Drug Allergy Encounters Encounter Location Date Needs referral [facility] Jul 12, 2015 Needs referral [facility] Aug 01, 2015 Needs referral [facility] Jul 31, 2015 ED medication [facility] Sep 05, 2015 h & p [facility] May 03, 2015 Needs referral [facility] May 21, 2015 Unknown [facility] June 06, 2015 Refill [facility] Sep 24, 2015 needing anixty medication [facility] Dec 17, 2015 Problems Problem Type Condition ICD-9 Code Onset Dates Condition Status Assessment Situational anxiety F41.8 Active Medications Medication Code System Code Instructions Start End Status Dosage Date Date Azilect MEDISPAN 21629-7 1 MG Orally Active 1 tablet 206-00 Once a day Oxybutynin MEDISPAN 20123-3 3.9 MG/24HR Active 1 patch to 322-02 Transdermal skin Metoprolol MEDISPAN 73795-7 25 MG Orally Active 1 tablet Succinate ER 281-01 Once a day Gabapentin MEDISPAN 78557-1 100 mg Orally Active 1 tablet 992-01 twice a day (bid) Carbidopa-Levodopa MEDISPAN 41004-1 25-100 MG Active 1 tablet ER 922-01 Orally every 6 every 6 hrs hours while awake Lovastatin MEDISPAN 48813-2 20 MG Orally Active 1 tablet 576-06 Once a day with a meal Digoxin MEDISPAN 64257-5 250 MCG Orally Active 1 tablet 822-01 Once a day Furosemide MEDISPAN 40174-7 20 MG Orally Active 1 tablet 297-25 Once a day Vitamin B Complex MEDISPAN 12458-6 Orally Active Unknown 5540 Pramipexole MEDISPAN 91632-7 0.75 MG Orally Active 1 tablet Dihydrochloride 019-98 Once a day before bedtime Xanax MEDISPAN 17246-3 0.5 MG Orally Dec 17, 1 tablet 055-01 Three times a 2016 day PRN Ketoconazole MEDISPAN 33339-7 2 % Externally Active Unknown 090-04 Eliquis MEDISPAN 03433-1 5 MG Orally Active 1 capsule 894-21 twice a day (bid) Folic Acid MEDISPAN 76665-4 1 MG Orally Active 1 tablet 507-19 three times a day (tid) Fluconazole MEDISPAN 38108-4 200 MG Orally Active 1 tablet 413-00 Once a week Quetiapine Fumarate MEDISPAN 89448-6 25 MG Orally Active 1 tablet 220-20 [...]
--- OUTSIDE RECORDS SUMMARY | 2018-08-04 06:46 | XMS REPORT ---
:1945 Author Organization eClinicalWorks Care Team Providers Name Role Phone Param [place] Provider Role Unavailable Encounters Encounter Location Date Needs referral [facility] Jul 12, 2015 Needs referral [facility] Aug 01, 2015 Needs referral [facility] Jul 31, 2015 ED medication [facility] Sep 05, 2015 h & p [facility] May 03, 2015 Clinical Advice During Business Hours [facility] Dec Needs referral [facility] May 21, 2015 Refill [facility] January 10, 2016 Unknown [facility] June 06, 2015 Refill [facility] Jan 06, 2016 Refill [facility] Sep 24, 2015 needing anixty medication [facility] Dec 17, 2015 Medications Medication Code System Code Instructions Start Date End Date Status Dosage Xanax MEDISPAN [address] 0.5 MG Orally Dec 17, Active 1 [...]
--- OUTSIDE RECORDS SUMMARY | 2018-08-04 06:46 | XMS REPORT ---
:1945 Author Organization eClinicalWorks Care Team Providers Name Role Phone Param [place] Provider Role Unavailable Encounters Encounter Location Date Needs referral [facility] Jul 12, 2015 Needs referral [facility] Aug 01, 2015 Needs referral [facility] Jul 31, 2015 ED medication [facility] Sep 05, 2015 h & p [facility] May 03, 2015 Needs referral [facility] May 21, 2015 Unknown [facility] June 06, 2015 Medications Medication Code System Code Instructions Start Date End Date Status Dosage Viagra MEDISPAN 39551-836 50 MG Orally Once Sep 09, Oct [...]
--- OUTSIDE RECORDS SUMMARY | 2018-08-04 06:46 | XMS REPORT ---
:1945 Author Organization eClinicalWorks Care Team Providers Name Role Phone Param [place] Provider Role Unavailable Encounters Encounter Location Date Needs referral [facility] Jul 12, 2015 h & p [facility] May 03, 2015 Needs referral [facility] May 21, 2015 Unknown [facility] June 06, 2015 Social History [...]
[2018-08-04] MEDS ORDERED: NA CHLORIDE 0.9% 500 ML ONE (07:07)
[2018-08-04] MEDS ORDERED: MIDAZOLAM HCL 5 MG/5 ML INJ ONE (07:37)
[2018-08-04 10:45] VITALS: BP 125/83; TEMP 97.7; O2SAT 99
--- NOTE | 2018-08-04 14:32 | EKG ---
Test Date: 2018-08-04 Test Time: 07:57:32 Transport Rn: JENNIE MEASUREMENT RESULTS: Intervals: Rate: 60 TN: 178 QRSD: 106 QT: 452 QTc: 452 [place]: P: 0 TN: 178 QRS: 7 T: -74 INTERPRETIVE STATEMENTS: Normal sinus rhythm Possible Left atrial enlargement ST & T wave abnormality, consider lateral ischemia Abnormal ECG Compared to ECG 06/15/2018 16:17:02 Possible ischemia now present Atrial flutter no longer present ST (T wave) deviation still present Electronically Signed On 08-04-18 14:31:20 CDT by Mil Schilling
--- NOTE | 2018-08-04 18:57 | OP ---
Surgeon: Mil Schilling MD Exec. Creative Director: Alessia Gil. Admitted on 08/04/2018 as an outpatient for cardioversion. Procedure: Direct current cardioversion. The patient was given a total of 8 mg of Versed for IV sedation. The initial rhythm was atrial flutt er. One shock of 50 joules converted him to sinus rhythm. There were no complications or blood loss . Postoperative Diagnosis: Successful cardioversion to sinus rhythm. Total conscious sedation was 30 minutes. Disposition: The patient will remain on his home medication including beta-blockers and Eliquis, and he will see me in the office in 2 weeks. KRISTIE/SARBJIT Voice ID: [id number] Report ID: [id number]
== END 2018-08-04 10:46 | disposition home or self-care (01) ==
LOC: CCL 06:42
DX: I48.92 Unspecified atrial flutter (principal); I10 Essential (primary) hypertension; G20 Parkinson's disease; E78.6 Lipoprotein deficiency; F41.9 Anxiety disorder, unspecified; Z95.0 Presence of cardiac pacemaker
CPT/HCPCS: 36415; 80048; 85025; 85610; 85730; 92960; 93005; J2250

== ENCOUNTER 2018-08-25 16:06 | Emergency (ER) | payer OTHER ==
--- OUTSIDE RECORDS SUMMARY | 2018-08-25 16:08 | XMS REPORT | Continuity of Care Document ---
:1945 Author Organization Interface Problems Problem Status Onset Classification Date Comments Source Date Reported TRAUMATIC Active [facility] SUBARACHNOID [address] [place] [address] Center CARMEN Active [facility] BILLING [address] [place] [address] LIFE FLIGHT # Active [place] 6[address]752 [address] [place] [address] Situational Active Diagnosis 12/25/2015 [facility] TRAUM SUBRAC HEM Active [facility] W/O [facility] Medications Medication Details Route Status Patient [...] EXAM: XR CHEST 1 VIEW 06/14 - [facility] 1view DX 1view DX /2015 - [facility] DATE: 06/14/2016 10:08 AM CDT Read [...] EXAM: CT BRAIN WITHOUT CONTRAST 06/14 - [facility] contrast contrast /2015 - Medical CT CT This report was dictated by a Telecasting Technician/Fellow. I have personally reviewed the images [...] were discussed by the Emergency Room resident match up person with Dr. Kwon in the Neuro ICU at 0310 hours on 06/14/16 Brain-Out Brain-Out EXAM: CT CERVICAL SPINE WITHOUT CONTRAST 06/13 [facility] /2015 - Medical Consult Consult This report was dictated by a Telecasting Technician/ Fellow. I have personally reviewed the [...] interpretation. COMPARISON: None TECHNIQUE: Study performed at [facility] on 2015 at 1736 hours. [...] Date Visit [facility] [id number] 05/03 05/03 [facility] [id number] [id number] [facility] 5c891o [facility] [id number]-7 05/03 05/03 [facility] [id number] /2014 [facility] [id number] Assoc 886a03 [facility] [id number] 05/03 05/03 [facility] 4q6-3u4l-y /2014 [facility] [id number]-hmqt43 Assoc eb65a0 [facility] [id number] 05/03 05/03 [facility] 5aa-[id number] /2014 [facility] fce-db34da Assoc b435be [facility] [id number]-k 05/03 05/03 [facility] [id number]-a /2014 [facility] [id number] Assoc [id number] [facility] 70a96fez-3 05/03 05/03 [facility] [id number]-b /2014 [facility] 2ed-5a0cba Assoc 8debb2 [facility] 828k3cl8-3 05/03 05/03 [facility] [id number] /2014 [facility] [id number]-ef78b9 Assoc 819da7 [facility] [id number] 05/03 05/03 [facility] [id number]-t /2014 [facility] [id number] Assoc 8536a5 [facility] [id number] 05/03 05/03 [facility] [id number] /2014 [facility] [id number]-258u48 Assoc 59e9eb [facility] 86n5v678-8 05/21 05/21 [facility] [id number]-a /2014 [facility] 6de-d4f76e Assoc abb04e [facility] [id number] 05/21 05/21 [facility] [id number]-[id number] /2014 [facility] 602-vc877v Assoc 2c4b5c [facility] 52709h44-g 05/21 05/21 [facility] 716-434e-9 /2014 [facility] [id number] Assoc c07d46 [facility] 0x1k8ei8-0 05/21 05/21 [facility] [id number]-6 /2014 [facility] 5z7-sj88bt Assoc 84m221 [facility] [id number] 05/21 05/21 [facility] u8x-6k54-5 /2014 [facility] 1d0-8ovll1 Assoc 8afcd8 [facility] [id number]-4 05/21 05/21 [facility] t57-4879-e /2014 [facility] [id number] Assoc [id number] [facility] a1v3s88t-b 05/21 05/21 [facility] [id number]-a /2014 [facility] 86b-4fdbee Assoc 90903o [facility] 4798315p-4 05/21 05/21 [facility] t0z-0k2l-l /2014 [facility] w2e-zuvi14 Assoc s9l221 [facility] [id number] 05/21 05/21 [facility] [id number] /2014 [facility] [id number] Assoc 00223n [facility] [id number] 06/06 06/06 [facility] 24b-[id number]-a /2014 [facility] [id number] Assoc 6e0fb9 [facility] [id number]-s 06/06 06/06 [facility] 640-44a0-9 /2014 [facility] v27-2og4n7 Assoc a3cb59 [facility] [id number] 06/06 06/06 [facility] [id number] /2014 [facility] 89e-be533z Assoc b8d72e [facility] [id number] 06/06 06/06 [facility] d8h-20x3-5 /2014 [facility] 9s8-eyr7x9 Assoc [id number] [facility] [id number] 06/06 06/06 [facility] 24b-4a5e-9 /2014 [facility] g13-cqfu22 Assoc 4ddfcc [facility] [id number] 06/06 06/06 [facility] 7bf-45e1-9 /2014 [facility] [id number]-89fd01 Assoc bbfa1e [facility] [id number] 06/06 06/06 [facility] 5fb-4756-b /2014 [facility] 1db-d1b5ab Assoc 3bcdb8 [facility] [id number]-[id number] 06/06 06/06 [facility] [id number] /2014 [facility] [id number] Assoc 2b6f07 [facility] 046owmy2-0 07/12 07/12 [facility] p5y-860a-z /2014 [facility] [id number]-bbdc61 Assoc 864516 [facility] [id number]-9 07/12 07/12 [facility] [id number]-a /2014 [facility] f5g-24f7w0 [facility]oc 6c8c38 [facility] gr9m28cv-n 07/12 07/12 [facility] [id number]-a /2014 [facility] [id number]-wh9385 Assoc 4e8ae3 [facility] [id number] 07/12 07/12 [facility] [id number]-45a7-8 /2014 [facility] [id number] Assoc 1ea28b [facility] tuc6t2n8-0 07/12 07/12 [facility] a10-50x1-2 /2014 [facility] [id number] Assoc [id number] [facility] [id number] 07/12 07/12 [facility] 6g0-202u-[id number] /2014 [facility] 2cd-ff6acf Assoc ca2e00 [facility] 5942086g-6 07/12 07/12 [facility] s57-0tzc-4 /2014 [facility] 625-bc5af7 Assoc 959d3e [facility] p84p36yp-w 07/31 07/31 [facility] 7v9-3p55-x /2014 [facility] [id number] Assoc 7e5c43 [facility] f91r5v7c-n 07/31 07/31 [facility] 87f-464b-a /2014 [facility] [id number]-d0541w Assoc 30d29c [facility] 5466x3sh-3 07/31 07/31 [facility] [id number]-47aa-a /2014 [facility] 07b-f0fab1 Assoc [id number] [facility] [id number] 07/31 07/31 [facility] 176-4850-9 /2014 [facility] b1g-a38hn5 Assoc 049e22 [facility] yo49uzox-2 07/31 07/31 [facility] 056-490e-a /2014 [facility] [id number] Assoc d12e22 [facility] 06st9641-0 07/31 07/31 [facility] fb1-4928-a /2014 [facility] [id number]-u72l4p Assoc ba1a8e [facility] 8w26uzg0-3 08/01 08/01 [facility] 92e-4fbb-b /2014 [facility] 9t8-91fpj8 Assoc 636d26 [facility] 36x90j9d-w 08/01 08/01 [facility] 1cd-402e-8 /2014 [facility] 8p6-1ocv8b Assoc [id number] [facility] 7h5e3qlf-5 08/01 08/01 [facility] g85-74ct-u /2014 [facility] marilu-x2648p Assoc 75cd71 [facility] zz1q3451-5 08/01 08/01 [facility] be9-459a-a /2014 [facility] y5u-e34tko Assoc 7edd38 [facility] 0z790lh0-9 08/01 08/01 [facility] 2bc-4e41-9 /2014 [facility] [id number]-utk912 Assoc xz3948 [facility] [id number] 08/01 08/01 [facility] [id number] /2014 [facility] dda-1305e4 Assoc 2y823z [facility] 53fdfaed-2 09/05 09/05 [facility] medication 58b-4008-8 /2014 [facility] 14e-3264b3 Assoc 6d413j [facility] 8wh2i491-8 09/05 09/05 [facility] 361-4382-b /2014 [facility] [id number]-t264a4 Assoc 0996b1 [facility] upgp26b7-3 09/05 09/05 [facility] ed9-4680-b /2014 [facility] 03b-a7f2b3 Assoc 9982ed [facility] 91s3cz07-t 09/05 09/05 [facility] 100-4789-8 /2014 [facility] ca7-ad2fb4 Assoc 49ff4c [facility] e866o81e-a 09/05 09/05 [facility] 9dc-4016-8 /2014 [facility] 7aa-a0ae25 Assoc oh005h [facility] 1fj75199-4 09/05 09/05 [facility] z2j-0dkt-7 /2014 [facility] df1-fb6d51 Assoc 9hp939 [facility] 902c500r-2 09/24 09/24 [facility] ee1-4a87-9 /2014 [facility] [id number]-z29989 Assoc b8h302 [facility] 4446l21f-3 09/24 09/24 [facility] fd3-4697-8 /2014 [facility] [id number] Assoc [id number] [facility] 6b1xwtsw-9 09/24 09/24 [facility] r06-65j3-9 /2014 [facility] 6t1-53q312 Assoc o7480l [facility] [id number] 09/24 09/24 [facility] 31f-471b-9 /2014 [facility] ad0-17da47 Assoc f8b5ae [facility] a0269z49-2 09/24 09/24 [facility] 579-4600-a /2014 [facility] 146-891da0 Assoc [id number] [facility] needing 7315a10o-b 12/17 12/17 [facility] anixty n3j-0361-7 /2015 [facility] medication [id number]-377618 Assoc f1f82e [facility] needing [id number]-d 12/17 12/17 [facility] anixty 3bc-48eb-8 /2015 [facility] medication 8e9-ylz5p5 Assoc 281d3e [facility] needing 7dhao8u1-6 12/17 12/17 [facility] anixty 186-4ed9-9 /2015 [facility] medication d3e-k90r33 Assoc 23f3c9 [facility] needing 7g8la4uj-6 12/17 12/17 [facility] anixty 0k9-1124-8 /2015 [facility] medication 576-5xn342 Assoc 4b5ff3 [facility] 6iueah9h-1 [facility] 37e-44a7-9 /2015 [facility] u70-51qw73 Assoc 87648r [facility] 670528va-c [facility] saray-4c15-a /2015 [facility] [id number]-jw6062 Assoc 0dbd37 [facility] dtsa7c36-r [facility] 166-4f13-a /2015 [facility] [id number]-0910be Assoc [id number] [facility] 19j4b45c-x [facility] Advice 49c-4769-a /2015 [facility] During amy-0e1db8 Assoc Business ce1e48 Hours [facility] 3g84xx2f-2 [facility] Advice 489-4710-b /2015 [facility] During annalise-c60acc Assoc Business cbcc3f Hours [facility] q4he856z-2 01/09 01/09 [facility] [id number]-d /2015 [facility] [id number]-es7u66 Assoc [id number] Procedures Procedure Code Date Perfomer Comments Source
--- OUTSIDE RECORDS SUMMARY | 2018-08-25 16:09 | XMS REPORT ---
:1945 Author Organization eClinicalWorks Care Team Providers Name Role Phone Param [place] Provider Role Unavailable Allergies, Adverse Reactions, Alerts Substance Reaction Event Type N.K.D.A. Info Not Available Non Drug Allergy Encounters Encounter Location Date Needs referral [facility] Jul 12, 2015 Needs referral [facility] Aug 01, 2015 Needs referral [facility] Jul 31, 2015 ED medication [facility] Sep 05, 2015 h & p [facility] May 03, 2015 Needs referral [facility] May 21, 2015 Unknown [facility] June 06, 2015 Refill [facility] Sep 24, 2015 needing anixty medication [facility] Dec 17, 2015 Problems Problem Type Condition ICD-9 Code Onset Dates Condition Status Assessment Situational anxiety F41.8 Active Medications Medication Code System Code Instructions Start End Status Dosage Date Date Azilect MEDISPAN 10926-1 1 MG Orally Active 1 tablet 206-00 Once a day Oxybutynin MEDISPAN 11413-4 3.9 MG/24HR Active 1 patch to 322-02 Transdermal skin Metoprolol MEDISPAN 73348-2 25 MG Orally Active 1 tablet Succinate ER 281-01 Once a day Gabapentin MEDISPAN 75552-2 100 mg Orally Active 1 tablet 992-01 twice a day (bid) Carbidopa-Levodopa MEDISPAN 52909-3 25-100 MG Active 1 tablet ER 922-01 Orally every 6 every 6 hrs hours while awake Lovastatin MEDISPAN 95527-4 20 MG Orally Active 1 tablet 576-06 Once a day with a meal Digoxin MEDISPAN 23547-1 250 MCG Orally Active 1 tablet 822-01 Once a day Furosemide MEDISPAN 44542-5 20 MG Orally Active 1 tablet 297-25 Once a day Vitamin B Complex MEDISPAN 17142-1 Orally Active Unknown 5540 Pramipexole MEDISPAN 96416-3 0.75 MG Orally Active 1 tablet Dihydrochloride 019-98 Once a day before bedtime Xanax MEDISPAN 57681-8 0.5 MG Orally Dec 17, 1 tablet 055-01 Three times a 2016 day PRN Ketoconazole MEDISPAN 30999-1 2 % Externally Active Unknown 090-04 Eliquis MEDISPAN 46502-9 5 MG Orally Active 1 capsule 894-21 twice a day (bid) Folic Acid MEDISPAN 18552-8 1 MG Orally Active 1 tablet 507-19 three times a day (tid) Fluconazole MEDISPAN 93751-1 200 MG Orally Active 1 tablet 413-00 Once a week Quetiapine Fumarate MEDISPAN 52623-4 25 MG Orally Active 1 tablet 220-20 [...]
--- OUTSIDE RECORDS SUMMARY | 2018-08-25 16:09 | XMS REPORT ---
:1945 Author Organization eClinicalWorks Care Team Providers Name Role Phone Param [place] Provider Role Unavailable Encounters Encounter Location Date Needs referral [facility] Jul 12, 2015 Needs referral [facility] Aug 01, 2015 Needs referral [facility] Jul 31, 2015 ED medication [facility] Sep 05, 2015 h & p [facility] May 03, 2015 Clinical Advice During Business Hours [facility] Dec Needs referral [facility] May 21, 2015 Refill [facility] January 10, 2016 Unknown [facility] June 06, 2015 Refill [facility] Jan 06, 2016 Refill [facility] Sep 24, 2015 needing anixty medication [facility] Dec 17, 2015 Medications Medication Code System Code Instructions Start Date End Date Status Dosage Xanax MEDISPAN [address] 0.5 MG Orally Dec 17, Active 1 [...]
--- OUTSIDE RECORDS SUMMARY | 2018-08-25 16:09 | XMS REPORT ---
:1945 Author Organization eClinicalWorks Care Team Providers Name Role Phone Param [place] Provider Role Unavailable Encounters Encounter Location Date Needs referral [facility] Jul 12, 2015 Needs referral [facility] Aug 01, 2015 Needs referral [facility] Jul 31, 2015 ED medication [facility] Sep 05, 2015 h & p [facility] May 03, 2015 Needs referral [facility] May 21, 2015 Unknown [facility] June 06, 2015 Medications Medication Code System Code Instructions Start Date End Date Status Dosage Viagra MEDISPAN 64568-933 50 MG Orally Once Sep 09, Oct [...]
--- OUTSIDE RECORDS SUMMARY | 2018-08-25 16:09 | XMS REPORT ---
:1945 Author Organization eClinicalWorks Care Team Providers Name Role Phone Param [place] Provider Role Unavailable Encounters Encounter Location Date Needs referral [facility] Jul 12, 2015 Needs referral [facility] Aug 01, 2015 Needs referral [facility] Jul 31, 2015 ED medication [facility] Sep 05, 2015 h & p [facility] May 03, 2015 Clinical Advice During Business Hours [facility] Dec Needs referral [facility] May 21, 2015 Unknown [facility] June 06, 2015 Refill [facility] Jan 06, 2016 Refill [facility] Sep 24, 2015 needing anixty medication [facility] Dec 17, 2015 Social History Social [...]
--- OUTSIDE RECORDS SUMMARY | 2018-08-25 16:09 | XMS REPORT ---
:1945 Author Organization eClinicalWorks Care Team Providers Name Role Phone Param [place] Provider Role Unavailable Encounters Encounter Location Date Needs referral [facility] Jul 12, 2015 Needs referral [facility] Aug 01, 2015 Needs referral [facility] Jul 31, 2015 ED medication [facility] Sep 05, 2015 h & p [facility] May 03, 2015 Needs referral [facility] May 21, 2015 Unknown [facility] June 06, 2015 Refill [facility] Jan 06, 2016 Refill [facility] Sep 24, 2015 needing anixty medication [facility] Dec 17, 2015 Social History Social [...]
--- OUTSIDE RECORDS SUMMARY | 2018-08-25 16:09 | XMS REPORT ---
:1945 Author Organization [employer]ClinicalWorks Care Team Providers Name Role Phone Param [place] Provider Role Unavailable Encounters Encounter Location Date h & p [facility] May 03, 2015 Needs referral [facility] May 21, 2015 Unknown [facility] June 06, 2015 Social History Social [...]
--- OUTSIDE RECORDS SUMMARY | 2018-08-25 16:09 | XMS REPORT ---
:1945 Author Organization e[employer] Care Team Providers Name Role Phone Param Palomino Provider Role Unavailable Encounters Encounter Location Date Needs referral [facility] Jul 12, 2015 Needs referral [facility] Aug 01, 2015 Needs referral [facility] Jul 31, 2015 ED medication [facility] Sep 05, 2015 h & p [facility] May 03, 2015 Needs referral [facility] May 21, 2015 Unknown [facility] June 06, 2015 Refill [facility] Sep 24, 2015 Social History Social [...]
--- OUTSIDE RECORDS SUMMARY | 2018-08-25 16:09 | XMS REPORT ---
:1945 Author Organization [employer] Care Team Providers Name Role Phone GeorgetteParam lepe Provider Role Unavailable Encounters Encounter Location Date h & p [facility] May 03, 2015 Needs referral [facility] May 21, 2015 Social History Social [...]
--- OUTSIDE RECORDS SUMMARY | 2018-08-25 16:09 | XMS REPORT ---
:1945 Author Organization [employer] Care Team Providers Name Role Phone Param Palomino Provider Role Unavailable Encounters Encounter Location Date Needs referral [facility] Jul 12, 2015 h & p [facility] May 03, 2015 Needs referral [facility] May 21, 2015 Unknown [facility] June 06, 2015 Social History [...]
[2018-08-25] MEDS ORDERED: NA CHLORIDE 0.9% 500 ML ONE ×2 (16:31→18:14)
--- NOTE | 2018-08-25 16:41 | RAD REPORT ---
EXAM DESCRIPTION: CT - Head Brain Wo Cont - 08/25/2018 4:35 pm CLINICAL HISTORY: Transient alteration of awareness COMPARISON: CT study June 15, 2018 TECHNIQUE: Axial 5 mm thick images of the head were obtained without IV contrast. All CT scans are performed using dose optimization technique as appropriate and may include automated exposure control or mA/KV adjustment according to patient size. FINDINGS: No intracranial hemorrhage, mass, edema or shift of mid-line structures. No acute infarcti on changes seen. No cortical edema or sulcal effacement. Atrophy and chronic ischemic changes are pre sent. Pattern is not substantially different from the comparison. Ventricles are in proportion to vol ume loss. Arterial and physiologic calcifications are present. Mastoid air cells and visualized portions of the paranasal sinuses are clear of acute finding. No acute bony findings. IMPRESSION: Atrophy and chronic ischemic changes are present. No intracranial acute findings noted. Chronic ischemic changes can mask nonhemorrhagic acute infarction. MR brain followup can be obtained if there is ongoing concern for acute ischemia.
[2018-08-25 16:51] LABS: Absolute Lymphocytes (CBC) 0.9 K/uL (0.7-4.9); Absolute Monocytes 0.8 K/uL (0.1-1.3); Absolute Neutrophil 5.8 K/uL (1.8-8.0); Basophils % 0.5 % (0-1.3); Hematocrit 39.9 % (39.6-49.0); MCV 91.3 fL (80-100); MPV 7.4 fL (7.6-11.3); Monocytes % 10.9 % (3.3-12.3); RBC Red Blood Cell Count 4.37 M/uL (4.33-5.43)
[2018-08-25 17:12] LABS: Magnesium 2.4 mg/dL (1.8-2.4); Potassium 4.2 mmol/L (3.5-5.1)
--- NOTE | 2018-08-25 18:29 | ER ---
Nurse's Notes [facility] Name: Kevin Barajas Age: 73 yrs Sex: Male : 1945 Arrival Date: 08/25/2018 Time: 16:08 Bed 4 Private MD: Americo Ontiveros E Diagnosis: Dehydration Presentation: 08/25 16:16 Presenting complaint: Friend states: Caregiver went to pick patient up for Dr bhatia appointment and noted that patient could not remember how to unlock the door and was confused about appointment he had scheduled. Caregiver reports that patient began acting confused on Wednesday. Patient is awake and alert to person and place. Transition of care: patient was not received from another setting of care. Onset of symptoms was August 21, 2018. Risk Assessment: Do you want to hurt yourself or someone else? Patient reports no desire to harm self or others. Initial Sepsis Screen: Does the patient meet any 2 criteria? No. Patient's initial sepsis screen is negative. Does the patient have a suspected source of infection? No. Patient's initial sepsis screen is negative. Care prior to arrival: None. 16:16 Method Of Arrival: Wheelchair aj 16:16 Acuity: KHLOE 3 aj Triage Assessment: 16:21 General: Appears in no apparent distress. comfortable, Behavior is calm, cooperative, aj appropriate for age. Pain: Denies pain. Neuro: Level of Consciousness is awake, obeys commands, confused, Oriented to person, place, Staff Consultant are equal bilaterally Moves all extremities. Weakness Gait is unsteady, Speech is normal, Facial symmetry appears normal. Respiratory: Airway is patent Respiratory effort is even, unlabored, Respiratory pattern is regular, symmetrical. Derm: Skin is intact, is healthy with good turgor, Skin is pink, warm \T\ dry. normal. Historical: - Allergies: 16:21 No Known Allergies; aj - Home Meds: 16:21 atorvastatin 10 mg Oral tab 1 tab once daily [Active]; bupropion HCl 50 mg Oral tab aj nightly [Active]; carbidopa-levodopa 25-100 mg Oral TbER 2 tabs 3 times per day [Active]; omeprazole 40 mg Oral cpDR 1 cap once daily [Active]; oxybutynin chloride 15 mg Oral tr24 1 tab once daily [Active]; quetiapine 25 mg Oral tab nightly [Active]; Trintellix 20 mg Oral tab once daily [Active]; 16:22 metoprolol succinate 100 mg Oral Tb24 1 tab once daily [Active]; iw 16:29 Eliquis 5 mg Oral tab 1 tab daily [Active]; iw - PMHx: 16:21 Atrial Fib; Depression; Hypertension; Pacemaker; Parkinsons; aj 16:20 Atrial Fib; Depression; Hypertension; Pacemaker; Parkinsons; iw - PSHx: 16:21 None; aj - Immunization history:: Adult Immunizations up to date. - Social history:: Smoking status: Patient/guardian denies using tobacco. - Ebola Screening: : Patient negative for fever greater than or equal to 101.5 degrees Fahrenheit, and additional compatible Ebola Virus Disease symptoms Patient denies exposure to infectious person Patient denies travel to an Ebola-affected area in the 21 days before illness onset No symptoms or risks identified at this time. - Family history:: not pertinent. - Hospitalizations: : No recent hospitalization is reported. Screenin:32 Fall Risk None identified. iw 16:33 Abuse screen: Denies threats or abuse. Denies injuries from another. Nutritional iw screening: No deficits noted. Tuberculosis screening: No symptoms or risk factors identified. Assessment: 16:31 General: Appears in no apparent distress. Behavior is calm, cooperative. Pain: Denies iw pain. Neuro: Level of Consciousness is awake, alert, obeys commands, Oriented to person, place, time, situation, Moves all extremities. Cardiovascular: Capillary refill < 3 seconds in bilateral fingers Patient's skin is warm and dry. Respiratory: Respiratory effort is even, unlabored, Respiratory pattern is regular, symmetrical. Derm: Skin is intact, is healthy with good turgor. Musculoskeletal: Range of motion: intact in all extremities. 17:18 Reassessment: Patient appears in no apparent distress at this time. Patient and/or iw family updated on plan of care and expected duration. Pain level reassessed. Patient is alert, oriented x 3, equal unlabored respirations, skin warm/dry/pink. 17:28 Reassessment: Point of Contact, Friend: Marce . Vital Signs: 16:21 BP 148 / 81; Pulse 62; Resp 19; Temp 98.6; Pulse Ox 99% on R/A; Weight 74.84 kg; Height aj 5 ft. 9 in. (175.26 cm); 16:21 Body Mass Index 24.37 (74.84 kg, 175.26 cm) aj ED Course: 16:08 Patient arrived in ED. mr 16:08 Americo Ontiveros MD is Private Physician. mr 16:11 Almas Nunez MD is Attending Physician. rn 16:15 First set of blood cultures drawn by pr. jb1 16:18 Triage completed. aj 16:21 Arm band placed on left wrist. Patient placed in an exam room. aj 16:[address] via stretcher. sj 16:30 Second set of blood cultures drawn by me. jb1 16:31 Lea Nichole, RN is Primary Nurse. iw 16:34 CT Head Brain wo Cont In Process Unspecified. EDMS 16:42 Initial lab(s) drawn, by pr, sent to lab. Inserted saline lock: 20 gauge in right jb1 forearm, using aseptic technique. Blood collected. 16:45 Patient has correct armband on for positive identification. Bed in low position. Call sg light in reach. Side rails up X2. Pulse ox on. NIBP on. 16:52 EKG done, by business technology professor. reviewed by Almas Nunez MD. 3 18:50 No provider procedures requiring assistance completed. IV discontinued, intact, sg bleeding controlled, No redness/swelling at site. Pressure dressing applied. Administered Medications: 16:51 Drug: NS 0.9% 500 ml Route: IV; Rate: bolus; Site: right wrist; iw 18:20 Drug: NS 0.9% 500 ml Route: IV; Rate: bolus; Site: right antecubital; sg Outcome: 18:28 Discharge ordered by . rn 18:50 Discharged to home via wheelchair. 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 safety practices, Demonstrated understanding of instructions, follow-up care. 19:01 Patient left the ED. sg Addendum: 08/31/2018 14:20 Addendum: Culture Results: Positive urine culture. Phone call Attempt #1 left voicemail h b [phone]. Signatures: Dispatcher [employer] EDMS Sahil Monzon jb1 Ej Blackwell RN RN sg Myers, Amanda, RN RN aj Rivera, Mary mr Jones, Susan sj Dionisio, Lea, RN RN Almas Nunez MD MD rn Smirch, Shelby, RN RN ss Baxter, Heather, RN RN hb Montes, Shakira 3 Corrections: (The following items were deleted from the chart) 08/25 16:21 Home Meds: Azilect 1 mg Oral tab 1 tab once daily; 16:21 Home Meds: digoxin 250 mcg Oral tab 1 tab once daily; 16:21 Home Meds: Eliquis 5 mg Oral tab 1 tab 2 times per day; 16:21 Home Meds: furosemide 20 mg Oral tab 1 tab once daily; 16:21 Home Meds: carbidopa-levodopa 25-100 mg Oral tab 1 tab 3 times per day; 16:21 Home Meds: gabapentin 100 mg Oral cap twice a day; 16:21 Home Meds: lovastatin 20 mg Oral tab 1 tab once daily; 16:21 Home Meds: metoprolol succinate 100 mg Oral Tb24 2 tabs once daily; 16:21 Home Meds: metoprolol tartrate 50 mg Oral tab 1 tab nightly; 16:21 Home Meds: Nuplazid 17 mg Oral tab 2 tabs once daily; 16:21 Home Meds: Seroquel 25 mg Oral tab daily; 16:21 Home Meds: sertraline 50 mg Oral tab 1 tab once daily; 16:22 Home Meds: atorvastatin 10 mg Oral tab 1 tab once daily; 16:22 Home Meds: oxybutynin chloride 15 mg Oral tr24 1 tab once daily; 16:22 Home Meds: quetiapine 25 mg Oral tab nightly;
--- NOTE | 2018-08-25 18:29 | EDPHYS ---
Physician Documentation [facility] Name: Kevin Barajas Age: 73 yrs Sex: Male : 1945 Arrival Date: 08/25/2018 Time: 16:08 Bed 4 Private MD: Americo Ontiveros E ED Physician Almas Nunez HPI: 08/25 16:21 This 73 yrs old Male presents to ER via Wheelchair with complaints of Altered rn Mental Status, Weakness. 16:21 The patient presents with confusion, decreased responsiveness, disorientation. Onset: rn The symptoms/episode began/occurred at an unknown time. Possible causes: unknown. Current symptoms: In the emergency department the patient's symptoms have improved. The patient has experienced similar episodes in the past. Caregiver dropped by to take him to a doctor's appointment, patient seemed weak, trouble walking, unable to even open a door because seemed confused, has had episodes like this before, no known head injury, patient denies pain but feels tired and weak. NO vomiting/diarrhea/abd pain/chest pain/sob. . Historical: - Allergies: 16:21 No Known Allergies; aj - Home Meds: 16:21 atorvastatin 10 mg Oral tab 1 tab once daily [Active]; bupropion HCl 50 mg Oral tab aj nightly [Active]; carbidopa-levodopa 25-100 mg Oral TbER 2 tabs 3 times per day [Active]; omeprazole 40 mg Oral cpDR 1 cap once daily [Active]; oxybutynin chloride 15 mg Oral tr24 1 tab once daily [Active]; quetiapine 25 mg Oral tab nightly [Active]; Trintellix 20 mg Oral tab once daily [Active]; 16:22 metoprolol succinate 100 mg Oral Tb24 1 tab once daily [Active]; iw 16:29 Eliquis 5 mg Oral tab 1 tab daily [Active]; iw - PMHx: 16:21 Atrial Fib; Depression; Hypertension; Pacemaker; Parkinsons; aj 16:20 Atrial Fib; Depression; Hypertension; Pacemaker; Parkinsons; iw - PSHx: 16:21 None; aj - Immunization history:: Adult Immunizations up to date. - Social history:: Smoking status: Patient/guardian denies using tobacco. - Ebola Screening: : Patient negative for fever greater than or equal to 101.5 degrees Fahrenheit, and additional compatible Ebola Virus Disease symptoms Patient denies exposure to infectious person Patient denies travel to an Ebola-affected area in the 21 days before illness onset No symptoms or risks identified at this time. - Family history:: not pertinent. - Hospitalizations: : No recent hospitalization is reported. ROS: 16:21 Constitutional: Negative for fever, chills, and weight loss, Eyes: Negative for injury, rn pain, redness, and discharge, Neck: Negative for injury, pain, and swelling, Cardiovascular: Negative for chest pain, palpitations, and edema, Respiratory: Negative for shortness of breath, cough, wheezing, and pleuritic chest pain, Abdomen/GI: Negative for abdominal pain, nausea, vomiting, diarrhea, and constipation, MS/Extremity: Negative for injury and deformity, Skin: Negative for injury, rash, and discoloration, Neuro: Negative for headache, numbness, tingling, and seizure. Exam: 16:21 Constitutional: This is a well developed, well nourished patient who is awake, alert, rn and in no acute distress. Head/Face: Normocephalic, atraumatic. Eyes: Pupils equal round and reactive to light, extra-ocular motions intact. Lids and lashes normal. Conjunctiva and sclera are non-icteric and not injected. Cornea within normal limits. Periorbital areas with no swelling, redness, or edema. ENT: dry MM Neck: Trachea midline, no thyromegaly or masses palpated, and no cervical lymphadenopathy. Supple, full range of motion without nuchal rigidity, or vertebral point tenderness. No Meningismus. Respiratory: Lungs have equal breath sounds bilaterally, clear to auscultation. No increased work of breathing, no retractions or nasal flaring. Abdomen/GI: soft, non-tender MS/ Extremity: Pulses equal, no cyanosis. Neurovascular intact. Full, normal range of motion. Equal circumference. Neuro: Awake and alert, GCS 15, oriented to person, place, and situation. Cranial nerves II-XII grossly intact, mild weakness of left forehead. Motor strength 4+/5 in all extremities. Sensory grossly intact. Cerebellar exam normal. Vital Signs: 16:21 BP 148 / 81; Pulse 62; Resp 19; Temp 98.6; Pulse Ox 99% on R/A; Weight 74.84 kg; Height aj 5 ft. 9 in. (175.26 cm); 16:21 Body Mass Index 24.37 (74.84 kg, 175.26 cm) aj MDM: 16:11 Patient medically screened. rn 18:25 Differential Diagnosis: CVA, electrolyte abnormality, hypoglycemia, TIA, UTI, volume rn depletion. Data reviewed: vital signs, nurses notes, lab test result(s), EKG, radiologic studies, CT scan, and as a result, I will discharge patient. Counseling: I had a detailed discussion with the patient and/or guardian regarding: the historical points, exam findings, and any diagnostic results supporting the discharge/admit diagnosis, lab results, radiology results, the need for outpatient follow up, to return to the emergency department if symptoms worsen or persist or if there are any questions or concerns that arise at home. Response to treatment: the patient's symptoms have markedly improved after treatment, the patient's condition has returned to base line, the patient is now symptom free, patient is well hydrated. and as a result, I will discharge patient. Special discussion: I discussed with the patient/guardian in detail that at this point there is no indication for admission to the hospital. It is understood, however, that if the symptoms persist or worsen the patient needs to return immediately for re-evaluation. ED course: Pt with marked improvement, this is second time for dehydration with return to baseline after fluids. Caregiver and patient both report rarely drinks water, has constipation, dry mouth, all consistent with dehydration. . 08/25 16:20 Order name: Basic Metabolic Panel; Complete Time: 17:50 rn 08/25 16:20 Order name: CBC with Diff; Complete Time: 17:50 rn 08/25 16:20 Order name: CPK; Complete Time: 17:50 rn 08/25 16:20 Order name: Magnesium; Complete Time: 17:50 rn 08/25 16:20 Order name: Procalcitonin; Complete Time: 17:50 rn 08/25 16:20 Order name: Blood Culture Adult (2) rn 08/25 16:20 Order name: CT Head Brain wo Cont; Complete Time: 16:43 rn 08/25 16:20 Order name: Lactate; Complete Time: 17:50 rn 08/25 16:20 Order name: Urine Microscopic Only rn 08/25 16:20 Order name: Urine Culture rn 08/25 16:20 Order name: Flu; Complete Time: 17:50 rn 08/25 18:13 Order name: Urine Dipstick--Ancillary (enter results) mt 08/25 16:20 Order name: EKG; Complete Time: 16:21 rn 08/25 16:20 Order name: Cardiac monitoring; Complete Time: 16:23 rn 08/25 16:20 Order name: EKG - Nurse/Tech; Complete Time: 16:44 rn 08/25 16:20 Order name: IV Saline Lock; Complete Time: 16:23 rn 08/25 16:20 Order name: Labs collected and sent; Complete Time: 16:23 rn 08/25 16:20 Order name: NPO; Complete Time: 16:23 rn 08/25 16:20 Order name: O2 Per Protocol; Complete Time: 16:23 rn 08/25 16:20 Order name: O2 Sat Monitoring; Complete Time: 16:23 rn 08/25 16:20 Order name: Urine Dipstick-Ancillary (obtain specimen); Complete Time: 18:48 rn Administered Medications: 16:51 Drug: NS 0.9% 500 ml Route: IV; Rate: bolus; Site: right wrist; iw 18:20 Drug: NS 0.9% 500 ml Route: IV; Rate: bolus; Site: right antecubital; sg Disposition: 08/25/18 18:28 Discharged to Home. Impression: Dehydration. - Condition is Stable. - Discharge Instructions: Dehydration, Adult. - Medication Reconciliation Form, Thank You Letter, Antibiotic Education, Prescription Opioid Use form. - Follow up: Private Physician; When: As needed; Reason: Recheck today's complaints, Re-evaluation by your physician. - Problem is new. - Symptoms have improved. Signatures: Dispatcher [employer] Ej Mir RN TC sg Sachi Guthrie RN RN aj Williams, Irene, RN RN Almas Nunez MD MD furnace unloader: (The following items were deleted from the chart) 16: 16:21 Home Meds: Azilect 1 mg Oral tab 1 tab once daily; [facility] 16:21 Home Meds: digoxin 250 mcg Oral tab 1 tab once daily; [facility] 16:21 Home Meds: Eliquis 5 mg Oral tab 1 tab 2 times per day; [facility] 16:21 Home Meds: furosemide 20 mg Oral tab 1 tab once daily; [facility] 16 16:21 Home Meds: carbidopa-levodopa 25-100 mg Oral tab 1 tab 3 times per day; iw 16 16:21 Home Meds: gabapentin 100 mg Oral cap twice a day; iw 16 16:21 Home Meds: lovastatin 20 mg Oral tab 1 tab once daily; iw 16 16:21 Home Meds: metoprolol succinate 100 mg Oral Tb24 2 tabs once daily; iw 16 16:21 Home Meds: metoprolol tartrate 50 mg Oral tab 1 tab nightly; [facility] 16 16:21 Home Meds: Nuplazid 17 mg Oral tab 2 tabs once daily; [facility] 16 16:21 Home Meds: Seroquel 25 mg Oral tab daily; [facility] 16 16:21 Home Meds: sertraline 50 mg Oral tab 1 tab once daily; [facility] 16 16:22 Home Meds: atorvastatin 10 mg Oral tab 1 tab once daily; 16 16:22 Home Meds: oxybutynin chloride 15 mg Oral tr24 1 tab once daily; [facility] 16 16:22 Home Meds: quetiapine 25 mg Oral tab nightly; [facility] 19:01 18:28 08/25/2018 18:28 Discharged to Home. Impression: Dehydration. Condition is sg Stable. Forms are Medication Reconciliation Form, Thank You Letter, Antibiotic Education, Prescription Opioid Use. Follow up: Private Physician; When: As needed; Reason: Recheck today's complaints, Re-evaluation by your physician. Problem is new. Symptoms have improved. rn
[2018-08-25 18:30] LABS: Urine RBC <5 /HPF (NONE SEEN)
[2018-08-25 18:31] LABS: Urine Bacteria NONE SEEN /HPF (NONE SEEN); Urine Culture Reflex Order NOT NEEDED
[2018-08-25 19:09] VITALS: BP 148/81; TEMP 98.6; O2SAT 99
[2018-08-25 23:16] LABS: Urine Blood NEGATIVE (NEG); Urine Glucose NEGATIVE (NEG); Urine Protein 1+ (NEG)
--- NOTE | 2018-08-26 06:51 | EKG ---
Test Date: 2018-08-25 Test Time: 16:43:29 Jumpbasting Facing Baster: SHIRLEY MEASUREMENT RESULTS: Intervals: Rate: 60 IA: 114 QRSD: 106 QT: 426 QTc: 426 [place]: P: 44 IA: 114 QRS: 52 T: -16 INTERPRETIVE STATEMENTS: Normal sinus rhythm T wave abnormality, consider lateral ischemia Abnormal ECG Compared to ECG 08/04/2018 07:57:32 T-wave abnormality now present ST (T wave) deviation no longer present Possible ischemia still present Electronically Signed On 08-26-18 06:49:09 CDT by Mil Schilling
== END 2018-08-25 19:01 | disposition home or self-care (01) ==
LOC: ER 16:06
DX: E86.0 Dehydration (principal); I10 Essential (primary) hypertension; I48.91 Unspecified atrial fibrillation; F32.9 Major depressive disorder, single episode, unspecified; G20 Parkinson's disease; Z95.0 Presence of cardiac pacemaker; Z79.02 Long term (current) use of antithrombotics/antiplatelets
CPT/HCPCS: 36415; 70450; 80048; 81003; 81015; 82550; 83605; 83735; 84145; 85025; 87040; 87077; 87086; 87088; 87186; 87804; 93005; 99284

== ENCOUNTER 2018-09-02 20:49 | Inpatient (IN) | payer OTHER ==
--- OUTSIDE RECORDS SUMMARY | 2018-09-02 20:52 | XMS REPORT ---
:1945 Author Organization [employer] Care Team Providers Name Role Phone Param [place] Provider Role Unavailable Encounters Encounter Location Date h & p [facility] May 03, 2015 Needs referral [facility] May 21, 2015 Unknown [facility] June 06, 2015 Social History [...]
--- OUTSIDE RECORDS SUMMARY | 2018-09-02 20:52 | XMS REPORT ---
:1945 Author Organization [employer] Care Team Providers Name Role Phone GeorgetteParam lepe Provider Role Unavailable Encounters Encounter Location Date h & p [facility] May 03, 2015 Needs referral [facility] May 21, 2015 Social History [...]
--- OUTSIDE RECORDS SUMMARY | 2018-09-02 20:52 | XMS REPORT | Continuity of Care Document ---
:1945 Author Organization Interface Problems Problem Status Onset Classification Date Comments Source Date Reported TRAUMATIC Active [facility] SUBARACHNOID [address] [place] [address] Center CARMEN Active [facility] BILLING [address] [place] [address] LIFE FLIGHT # Active [place] [id number] [address] [place] [address] Situational Active Diagnosis 12/25/2015 [facility] TRAUM SUBRAC HEM Active [facility] W/O [facility] Medications Medication Details Route Status Patient Ordering [...] EXAM: XR CHEST 1 VIEW 06/14 - [facility] 1view DX 1view DX /2015 - [facility] DATE: 06/14/2016 10:08 AM CDT Read by: [...] EXAM: CT BRAIN WITHOUT CONTRAST 06/14 - [facility] contrast contrast /2015 - Medical CT CT This report was dictated by a Coremaking Machine Operator/Fellow. I have personally reviewed the images as [...] were discussed by the Emergency Room resident product control and logistics analyst with Dr. Kwon in the Neuro ICU at 0310 hours on 06/14/16 Brain-Out Brain-Out EXAM: CT CERVICAL SPINE WITHOUT CONTRAST 06/13 [facility] /2015 - Medical Consult Consult This report was dictated by a Coremaking Machine Operator/ Fellow. I have personally reviewed the images as Center CT CT well as the Resident's interpretation and agree with the findings. DATE: 06/13/2016 9:10 PM CDT Read by: Tristen Fields MD Resident: Tristen Fields MD Dictated Date/time: 06/14/16 03:34 Electronically Signed by: Mt Yousif 06/14/16 07:44 FINAL REPORT INDICATION: Trauma. Outside hospital exam submitted for 2nd interpretation. COMPARISON: None TECHNIQUE: Study performed at [facility] on 2015 at 1736 hours. Volumetric acquisition [...] Date Visit [facility] [id number] 05/03 05/03 [facility] [id number]-[id number] [id number] [facility] 4k108s [facility] [id number]-9 05/03 05/03 [facility] r49-2k8r-[id number] /2014 [facility] [id number] [facility]oc 886a03 [facility] [id number] 05/03 05/03 [facility] 3s8-7w4y-g /2014 [facility] 3r2-oqxr53 [facility]oc eb65a0 [facility] [id number] 05/03 05/03 [facility] [id number]-[id number] /2014 [facility] fce-db34da Assoc b435be [facility] [id number]-x 05/03 05/03 [facility] 260-498a-a /2014 [facility] [id number] Assoc 452c61 [facility] 09p20hfi-2 05/03 05/03 [facility] [id number]-b /2014 [facility] 2ed-5a0cba [facility]oc 8debb2 [facility] 763w3wn5-4 05/03 05/03 [facility] 5bf-4fd5-a /2014 [facility] 91e-ef78b9 Assoc 819da7 [facility] [id number] 05/03 05/03 [facility] 0z1-1320-y /2014 [facility] 4x1-25i8r9 [facility]oc 8536a5 [facility] [id number] 05/03 05/03 [facility] [id number] /2014 [facility] [id number]-966l12 [facility]oc 59e9eb [facility] 76x0k368-8 05/21 05/21 [facility] 03d-[id number]-a /2014 [facility] 6de-d4f76e [facility]oc abb04e [facility] s84ny200-y 05/21 05/21 [facility] n4z-6803-2 /2014 [facility] [id number]-xd639f Assoc 2c4b5c [facility] [id number] 05/21 05/21 [facility] 716-434e-9 /2014 [facility] [id number] Assoc c07d46 [facility] 3a3r4iz7-6 05/21 05/21 [facility] [id number]-6 /2014 [facility] 2o2-by60eg Assoc 84l983 [facility] [id number]-a 05/21 05/21 [facility] z6a-9t11-1 /2014 [facility] 3o8-3avhc7 Assoc 8afcd8 [facility] 2t1c324e-4 05/21 05/21 [facility] x45-3797-u /2014 [facility] [id number] Assoc [id number] [facility] w4d1z85r-c 05/21 05/21 [facility] [id number]-a /2014 [facility] 86b-4fdbee Assoc 91609f [facility] 0243106m-1 05/21 05/21 [facility] s6s-3g0r-v /2014 [facility] b1z-urzj32 [facility]oc c4h413 [facility] k2o1t102-2 05/21 05/21 [facility] [id number] /2014 [facility] [id number] Assoc 88733s [facility] [id number] 06/06 06/06 [facility] 24b-4ba7-a /2014 [facility] [id number] Assoc 6e0fb9 [facility] [id number]-w 06/06 06/06 [facility] 640-44a0-9 /2014 [facility] n27-4ha6a8 [facility]oc a3cb59 [facility] [id number] 06/06 06/06 [facility] b26-87i0-3 /2014 [facility] 89e-bi721i Assoc b8d72e [facility] [id number] 06/06 06/06 [facility] u5s-27z7-9 /2014 [facility] 7l3-rpj3o3 Assoc t29107 [facility] [id number] 06/06 06/06 [facility] 24b-4a5e-9 /2014 [facility] q27-yhdo59 [facility]oc 4ddfcc [facility] [id number] 06/06 06/06 [facility] 7bf-45e1-9 /2014 [facility] 39f-89fd01 Assoc bbfa1e [facility] [id number] 06/06 06/06 [facility] [id number]-4756-b /2014 [facility] 1db-d1b5ab [facility]oc 3bcdb8 [facility] [id number]-[id number] 06/06 06/06 [facility] 809-43b2-8 /2014 [facility] dc4-34ae67 Assoc 2b6f07 [facility] 683dyxs1-6 07/12 07/12 [facility] e4s-909f-t /2014 [facility] 7ab-bbdc61 Assoc 643134 [facility] [id number]-5 07/12 07/12 [facility] [id number]-4b39-a /2014 [facility] m6d-99y0s1 [facility]oc 6c8c38 [facility] wc5v27ng-t 07/12 07/12 [facility] 71b-41fc-a /2014 [facility] 96b-uv9515 Assoc 4e8ae3 [facility] [id number] 07/12 07/12 [facility] 0cf-45a7-8 /2014 [facility] [id number] Assoc 1ea28b [facility] qiw6h3w3-4 07/12 07/12 [facility] l61-51z1-9 /2014 [facility] k67-5v689a Assoc p37396 [facility] 9569y38w-0 07/12 07/12 [facility] 1n8-540w-7 /2014 [facility] 2cd-ff6acf Assoc ca2e00 [facility] 7397282j-8 07/12 07/12 [facility] k74-7lln-1 /2014 [facility] 625-bc5af7 Assoc 959d3e [facility] q71n12wj-m 07/31 07/31 [facility] 9s5-5m95-v /2014 [facility] 172-9e2cb5 Assoc 7e5c43 [facility] b27q3e6l-v 07/31 07/31 [facility] 87f-464b-a /2014 [facility] 98f-b3458e Assoc 30d29c [facility] 5256z5rh-9 07/31 07/31 [facility] 1eb-47aa-a /2014 [facility] 07b-f0fab1 Assoc [id number] [facility] [id number] 07/31 07/31 [facility] 176-4850-9 /2014 [facility] k7o-v17jh8 Assoc 049e22 [facility] bj26muba-7 07/31 07/31 [facility] 056-490e-a /2014 [facility] [id number]-r27273 Assoc d12e22 [facility] 29os2020-5 07/31 07/31 [facility] fb1-4928-a /2014 [facility] g94-l28d8o Assoc ba1a8e [facility] 8b72pxr0-3 08/01 08/01 [facility] 92e-4fbb-b /2014 [facility] 6c0-37nml1 Assoc 636d26 [facility] 18e92g3a-n 08/01 08/01 [facility] 1cd-402e-8 /2014 [facility] 3d1-6fwf4t Assoc 667382 [facility] 1j4v8dud-5 08/01 08/01 [facility] d21-02fi-v /2014 [facility] marilu-w8905q Assoc 75cd71 [facility] iq3v7393-2 08/01 08/01 [facility] be9-459a-a /2014 [facility] l9n-q60tzt [facility]oc 7edd38 [facility] 2r972dm3-2 08/01 08/01 [facility] 2bc-4e41-9 /2014 [facility] 828-syy218 Assoc yv6619 [facility] 96838198-1 08/01 08/01 [facility] 1t6-3969-3 /2014 [facility] dda-1305e4 Assoc 1d992j [facility] 53fdfaed-2 09/05 09/05 [facility] medication 58b-4008-8 /2014 [facility] 14e-3264b3 Assoc 4d579q [facility] 7zd9p818-6 09/05 09/05 [facility] medication 361-4382-b /2014 [facility] a98-o140g7 Assoc 0996b1 [facility] ipqy05h8-8 09/05 09/05 [facility] ed9-4680-b /2014 [facility] 03b-a7f2b3 Assoc 9982ed [facility] 58v8xn33-n 09/05 09/05 [facility] 100-4789-8 /2014 [facility] ca7-ad2fb4 Assoc 49ff4c [facility] w564o04q-c 09/05 09/05 [facility] medication 9dc-4016-8 /2014 [facility] 7aa-a0ae25 Assoc ga018j [facility] 1dn14161-6 09/05 09/05 [facility] h5c-7frx-1 /2014 [facility] df1-fb6d51 Assoc 9lm620 [facility] 966o114x-9 09/24 09/24 [facility] ee1-4a87-9 /2014 [facility] [id number]-x66220 Assoc r3o451 [facility] 9129a78r-4 09/24 09/24 [facility] fd3-4697-8 /2014 [facility] [id number] Assoc 638429 [facility] 8e3mwhua-3 09/24 09/24 [facility] j03-55k9-2 /2014 [facility] 8v6-84s205 Assoc o2529s [facility] x2k0zj31-3 09/24 09/24 [facility] 31f-471b-9 /2014 [facility] ad0-17da47 Assoc f8b5ae [facility] w9056t94-9 09/24 09/24 [facility] 579-4600-a /2014 [facility] 146-891da0 Assoc 368407 [facility] needing 7696f48z-c 12/17 12/17 [facility] anixty f2o-1376-2 /2015 [facility] medication 75e-310223 Assoc f1f82e [facility] needing [id number]-b 12/17 12/17 [facility] anixty 3bc-48eb-8 /2015 [facility] medication 3p5-qjn7x6 Assoc 281d3e [facility] 4gpjf2x3-6 12/17 12/17 [facility] anixty 186-4ed9-9 /2015 [facility] medication l3l-m39u19 Assoc 23f3c9 [facility] 9j3uu7ar-4 12/17 12/17 [facility] anixty 0p1-7128-3 /2015 [facility] medication 576-7ms763 Assoc 4b5ff3 [facility] 5yyqhd2u-9 [facility] 37e-44a7-9 /2015 [facility] t11-87uv82 Assoc 33917d [facility] 237138ud-j [facility] saray-4c15-a /2015 [facility] [id number]-xq2070 Assoc 0dbd37 [facility] wwkf1f20-h [facility] [id number]-a /2015 [facility] 4bf-0910be Assoc 617216 [facility] 54i5z05p-w [facility] Advice 49c-4769-a /2015 [facility] During amy-0e1db8 Assoc Business ce1e48 Hours [facility] 6s81uu6p-3 [facility] Advice 489-4710-b /2015 [facility] During annalise-c60acc Assoc Business cbcc3f Hours [facility] t6rf793v-9 01/09 01/09 [facility] 2b6-30j3-s /2015 [facility] [id number]-jr4z03 Assoc [id number] Procedures Procedure Code Date Perfomer Comments Source
--- OUTSIDE RECORDS SUMMARY | 2018-09-02 20:52 | XMS REPORT ---
[...] End Status Dosage Date Date Azilect MEDISPAN 87383-5 1 MG Orally Active 1 tablet 206-00 Once a day Oxybutynin MEDISPAN 45235-8 3.9 MG/24HR Active 1 patch to 322-02 Transdermal skin Metoprolol MEDISPAN 20557-8 25 MG Orally Active 1 tablet Succinate ER 281-01 Once a day Gabapentin MEDISPAN 37383-4 100 mg Orally Active 1 tablet 992-01 twice a day (bid) Carbidopa-Levodopa MEDISPAN 84652-8 25-100 MG Active 1 tablet ER 922-01 Orally every 6 every 6 hrs hours while awake Lovastatin MEDISPAN 93257-3 20 MG Orally Active 1 tablet 576-06 Once a day with a meal Digoxin MEDISPAN 79406-0 250 MCG Orally Active 1 tablet 822-01 Once a day Furosemide MEDISPAN 21829-3 20 MG Orally Active 1 tablet 297-25 Once a day Vitamin B Complex MEDISPAN 84176-4 Orally Active Unknown 5540 Pramipexole MEDISPAN 25919-5 0.75 MG Orally Active 1 tablet Dihydrochloride 019-98 Once a day before bedtime Xanax MEDISPAN 69697-8 0.5 MG Orally Dec 17, 1 tablet 055-01 Three times a 2016 day PRN Ketoconazole MEDISPAN 69866-9 2 % Externally Active Unknown 090-04 Eliquis MEDISPAN 51758-1 5 MG Orally Active 1 capsule 894-21 twice a day (bid) Folic Acid MEDISPAN 74351-1 1 MG Orally Active 1 tablet 507-19 three times a day (tid) Fluconazole MEDISPAN 62462-5 200 MG Orally Active 1 tablet 413-00 Once a week Quetiapine Fumarate MEDISPAN 01959-8 25 MG Orally Active 1 tablet 220-20 [...]
--- OUTSIDE RECORDS SUMMARY | 2018-09-02 20:53 | XMS REPORT ---
:1945 Author Organization [employer] Care Team Providers Name Role Phone Param [place] Provider Role Unavailable Encounters Encounter Location Date Needs referral [facility] Jul 12, 2015 Needs referral [facility] Aug 01, 2015 Needs referral [facility] Jul 31, 2015 ED medication [facility] Sep 05, 2015 h & p [facility] May 03, 2015 Clinical Advice During Business Hours [facility] Dec Needs referral [facility] May 21, 2015 Refill [facility] January 10, 2016 Unknown [facility] June 06, 2015 Refill [facility] Jan 06, 2016 Refill [facility] Sep 24, 2015 needing anixty medication [facility] Dec 17, 2015 Medications Medication Code System Code Instructions Start Date End Date Status Dosage Xanax MEDISPAN [address] 0.5 MG Orally Dec 17, Active 1 [...]
--- OUTSIDE RECORDS SUMMARY | 2018-09-02 20:53 | XMS REPORT ---
:1945 Author Organization [employer] Care Team Providers Name Role Phone Param [place] Provider Role Unavailable Encounters Encounter Location Date Needs referral [facility] Jul 12, 2015 Needs referral [facility] Aug 01, 2015 Needs referral [facility] Jul 31, 2015 ED medication [facility] Sep 05, 2015 h & p [facility] May 03, 2015 Needs referral [facility] May 21, 2015 Unknown [facility] June 06, 2015 Medications Medication Code System Code Instructions Start Date End Date Status Dosage Viagra MEDISPAN 57557-478 50 MG Orally Once Sep 09, Oct [...]
--- OUTSIDE RECORDS SUMMARY | 2018-09-02 20:53 | XMS REPORT ---
:1945 Author Organization [employer] Care Team Providers Name Role Phone Param [place] Provider Role Unavailable Encounters Encounter Location Date Needs referral [facility] Jul 12, 2015 Needs referral [facility] Aug 01, 2015 Needs referral [facility] Jul 31, 2015 ED medication [facility] Sep 05, 2015 h & p [facility] May 03, 2015 Needs referral [facility] May 21, 2015 Unknown [facility] June 06, 2015 Refill [facility] Sep 24, 2015 Social History Social [...]
--- OUTSIDE RECORDS SUMMARY | 2018-09-02 20:53 | XMS REPORT ---
:1945 Author Organization [employer] Care Team Providers Name Role Phone Param [place] Provider Role Unavailable Encounters Encounter Location Date Needs referral [facility] Jul 12, 2015 h & p [facility] May 03, 2015 Needs referral [facility] May 21, 2015 Unknown [facility] June 06, 2015 Social History [...]
--- OUTSIDE RECORDS SUMMARY | 2018-09-02 20:53 | XMS REPORT ---
:1945 Author Organization [employer] Care Team Providers Name Role Phone Param [place] Provider Role Unavailable Encounters Encounter Location Date Needs referral [facility] Jul 12, 2015 Needs referral [facility] Aug 01, 2015 Needs referral [facility] Jul 31, 2015 ED medication [facility] Sep 05, 2015 h & p [facility] May 03, 2015 Needs referral [facility] May 21, 2015 Unknown [facility] June 06, 2015 Refill [facility] Jan 06, 2016 Refill [facility] Sep 24, 2015 needing anixty medication [facility] Dec 17, 2015 Social History Social [...]
--- OUTSIDE RECORDS SUMMARY | 2018-09-02 20:53 | XMS REPORT ---
:1945 Author Organization [employer] Care Team Providers Name Role Phone Param [place] Provider Role Unavailable Encounters Encounter Location Date Needs referral [facility] Jul 12, 2015 Needs referral [facility] Aug 01, 2015 Needs referral [facility] Jul 31, 2015 ED medication [facility] Sep 05, 2015 h & p [facility] May 03, 2015 Clinical Advice During Business Hours [facility] Dec Needs referral [facility] May 21, 2015 Unknown [facility] June 06, 2015 Refill [facility] Jan 06, 2016 Refill [facility] Sep 24, 2015 needing anixty medication [facility] Dec 17, 2015 Social History Social [...]
--- NOTE | 2018-09-02 21:33 | RAD REPORT ---
EXAM DESCRIPTION: CT - Head C Spine Mpr Wo Con - 09/02/2018 9:13 pm CLINICAL HISTORY: Head and neck injury status post fall. Head and neck pain COMPARISON: 2016 TECHNIQUE: Computed axial tomography of the head and cervical spine was obtained. Sagittal and coronal reconstruction was performed. All CT scans are performed using dose optimization technique as appropriate and may include automated exposure control or mA/KV adjustment according to patient size. FINDINGS: An intracranial bleed is not seen. The ventricles are normal in caliber. An extra-axial fl uid collection is not noted. Mild low-density areas within periventricular, deep and subcortical whit e matter likely represent ischemic changes secondary to small vessel disease. Fluid within the visual ized sinuses and mastoids is not seen A cervical fracture is not visualized. No dislocation is noted. IMPRESSION: No acute intracranial abnormality is seen. A cervical fracture is not visualized.
--- NOTE | 2018-09-02 21:48 | RAD REPORT ---
EXAM DESCRIPTION: RAD - Foot Right 3 View - 09/02/2018 9:21 pm CLINICAL HISTORY: Right foot pain status post injury FINDINGS: No fracture or dislocation is seen. The bones are osteoporotic
[2018-09-02 21:54] LABS: Absolute Lymphocytes (CBC) 0.8 K/uL (0.7-4.9); Absolute Monocytes 0.7 K/uL (0.1-1.3); Absolute Neutrophil 5.5 K/uL (1.8-8.0); Basophils % 0.3 % (0-1.3); Eosinophils % 1.5 % (0-4.4); Hematocrit 35.8 % (39.6-49.0); Lymphocytes % 11.6 % (15.3-44.8); MCH 32.2 pg (27.0-35.0); MCV 91.1 fL (80-100); MPV 6.7 fL (7.6-11.3); Monocytes % 9.4 % (3.3-12.3); RBC Red Blood Cell Count 3.92 M/uL (4.33-5.43)
[2018-09-02 22:11] LABS: Potassium 4.1 mmol/L (3.5-5.1)
[2018-09-02 22:20] LABS: Urine Blood NEGATIVE (NEG); Urine Glucose NEGATIVE (NEG); Urine Protein NEGATIVE (NEG)
[2018-09-02] MEDS ORDERED: ONDANSETRON 4 MG/2 ML VIAL IV PRN (23:26)
[2018-09-02] MEDS ORDERED: ACETAMINOPHEN 500 MG TAB PO PRN (23:26)
--- NOTE | 2018-09-02 23:44 | EDPHYS ---
Physician Documentation [facility] Name: Kevin Barajas Age: 73 yrs Sex: Male : 1945 Arrival Date: 09/02/2018 Time: 20:57 Bed 14 Private MD: ED Physician Frank Rivera HPI: 09/02 23:21 This 73 yrs old Male presents to ER via EMS with complaints of AMS. kdr 23:21 The patient presents with confusion, decreased mental status. Onset: The kdr symptoms/episode began/occurred at an unknown time. Possible causes: CVA or TIA, head injury. Associated signs and symptoms: Pertinent positives: confusion, gait abnormality. Current symptoms: In the emergency department the patient's symptoms have improved, mildly. Patient's baseline: Neuro: alert but confused, Motor: left-sided weakness, Ambulation: unable to walk, Speech: normal, normal for age. It is unknown whether or not the patient has had similar symptoms in the past. EMS reports that an initial SBP was 60 and this was checked with a manual BP and it was similar. Historical: - Allergies: 21:03 No Known Allergies; jb4 - Home Meds: 21:03 Trintellix 20 mg Oral tab once daily [Active]; omeprazole 40 mg Oral cpDR 1 cap once jb4 daily [Active]; Eliquis 5 mg Oral tab 1 tab daily [Active]; carbidopa-levodopa 25-100 mg Oral TbER 2 tabs 3 times per day [Active]; bupropion HCl 50 mg Oral tab nightly [Active]; atorvastatin oral oral [Active]; - PMHx: 21:03 Atrial Fib; Depression; Hypertension; Pacemaker; Parkinsons; jb4 - PSHx: 21:03 pacemaker implantation; jb4 - Immunization history:: Adult Immunizations up to date, Flu vaccine is up to date. - Social history:: Smoking status: Patient/guardian denies using tobacco. - Ebola Screening: : No symptoms or risks identified at this time. ROS: 23:21 Constitutional: The patient is a poor historian and confused. Eyes: Negative for kdr injury, pain, redness, and discharge, ENT: Negative for injury, pain, and discharge, Neck: Negative for injury, pain, and swelling, Cardiovascular: Negative for chest pain, palpitations, and edema, Respiratory: Negative for shortness of breath, cough, wheezing, and pleuritic chest pain, Abdomen/GI: Negative for abdominal pain, nausea, vomiting, diarrhea, and constipation, Back: Negative for injury and pain. Exam: 23:21 Constitutional: This is a well developed, well nourished patient who is awake, alert, kdr and in no acute distress He is repsonding to most questions appropriately.. Head/Face: Normocephalic, minor swelling and tenderness to the right occiput and pariatel areas Eyes: Pupils equal round and reactive to light, extra-ocular motions intact. Lids and lashes normal. Conjunctiva and sclera are non-icteric and not injected. Cornea within normal limits. Periorbital areas with no swelling, redness, or edema. Neck: Trachea midline, no thyromegaly or masses palpated, and no cervical lymphadenopathy. Supple, full range of motion without nuchal rigidity, or vertebral point tenderness. No Meningismus. Chest/axilla: Normal chest wall appearance and motion. Nontender with no deformity. No lesions are appreciated. Cardiovascular: Regular rate and rhythm with a normal S1 and S2. No gallops, murmurs, or rubs. Normal PMI, no JVD. No pulse deficits. Respiratory: Lungs have equal breath sounds bilaterally, clear to auscultation and percussion. No rales, rhonchi or wheezes noted. No increased work of breathing, no retractions or nasal flaring. Abdomen/GI: Soft, non-tender, with normal bowel sounds. No distension or tympany. No guarding or rebound. No evidence of tenderness throughout. Back: No spinal tenderness. No costovertebral tenderness. Full range of motion. Skin: Warm, dry with normal turgor. Normal color with no rashes, no lesions, and no evidence of cellulitis. MS/ Extremity: Pulses equal, no cyanosis. Neurovascular intact. Full, normal range of motion. Psych: Awake, alert, with orientation to person, place and time. Behavior, mood, and affect are within normal limits. Vital Signs: 21:03 BP 162 / 64; Pulse 59; Resp 18; Temp 98.8; Pulse Ox 98% ; Height 5 ft. 8 in. (172.72 jb4 cm) (R); 21:41 BP 182 / 95; Pulse 60; Resp 18; Pulse Ox 100% on R/A; mt 22:30 BP 147 / 74; Pulse 60; Resp 18; Pulse Ox 99% on R/A; jb4 23:40 BP 173 / 84; Pulse 67; Resp 18; Pulse Ox 99% on R/A; mt 09/03 00:33 BP 163 / 77; Pulse 60; Resp 18; Pulse Ox 99% on R/A; jb4 MDM: 09/02 23:44 Patient medically screened. kdr 23:44 Data reviewed: vital signs, nurses notes, lab test result(s), EKG, radiologic studies. kdr Counseling: I had a detailed discussion with the patient and/or guardian regarding: the historical points, exam findings, and any diagnostic results supporting the discharge/admit diagnosis, lab results, radiology results, the need for further work-up and treatment in the hospital. 09/02 21:01 Order name: CBC with Diff; Complete Time: 22:44 kdr 09/02 21: Order name: Chem 7; Complete Time: 22:44 kdr 09/02 21:01 Order name: CT Head C Spine; Complete Time: 22:44 kdr 09/02 21:01 Order name: Foot Right 3 View XRAY; Complete Time: 22:44 kdr 09/02 21:01 Order name: Urine Dipstick-Ancillary (obtain specimen); Complete Time: 22:14 kdr 09/02 22:13 Order name: Urine Dipstick--Ancillary (enter results); Complete Time: 22:44 ms Administered Medications: No medications were administered Disposition: 09/02/18 23:44 Hospitalization ordered by Pina Lopez for Observation. Preliminary diagnosis are Hypotension, Hypotension, unspecified, Altered mental status, unspecified. - Bed requested for Telemetry/MedSurg (observation). - Status is Observation. jb4 - Condition is Fair. - Problem is an ongoing problem. - Symptoms have improved. UTI on Admission? No Signatures: Dispatcher [employer] EDNV Felicitas Lynn RN RN Frank Rivera MD MD [facility] Kevin Mckenna RN RN jb4 Corrections: (The following items were deleted from the chart) 23:45 23:44 Hospitalization Ordered by Pina Lopez MD for Observation. Preliminary diagnosis is Hypotension; Hypotension, unspecified; Altered mental status, unspecified. Bed requested for Telemetry/MedSurg (observation). Status is Observation. Condition is Fair. Problem is an ongoing problem. Symptoms have improved. UTI on Admission? No. kdr 09/03 00:34 09/02 23:45 09/02/2018 23:44 Hospitalization Ordered by Pina Lopez MD for jb4 Observation. Preliminary diagnosis is Hypotension; Hypotension, unspecified; Altered mental status, unspecified. Bed requested for Telemetry/MedSurg (observation). Status is Observation. Condition is Fair. Problem is an ongoing problem. Symptoms have improved. UTI on Admission? No. mw
--- NOTE | 2018-09-02 23:44 | ER ---
Nurse's Notes [facility] Name: Kevin Barajas Age: 73 yrs Sex: Male : 1945 Arrival Date: 09/02/2018 Time: 20:57 Bed 14 Private MD: Diagnosis: Hypotension;Hypotension, unspecified;Altered mental status, unspecified Presentation: 09/02 20:58 Presenting complaint: EMS states: Pt was found sitting in a chair upon arrival. Pt's jb4 friends reports that the pt did not hit his head or lose consciousness, he hit his right elbow. Pt was hypotension on scene and was altered. Transition of care: patient was not received from another setting of care. Onset of symptoms was September 02, 2018. Risk Assessment: Do you want to hurt yourself or someone else? Patient reports no desire to harm self or others. Initial Sepsis Screen: Does the patient meet any 2 criteria? No. Patient's initial sepsis screen is negative. Does the patient have a suspected source of infection? No. Patient's initial sepsis screen is negative. Care prior to arrival: Glucose check: 112. 20:58 Method Of Arrival: EMS: [facility] jb4 20:58 Acuity: KHLOE 3 jb4 Historical: - Allergies: 21:03 No Known Allergies; jb4 - Home Meds: 21:03 Trintellix 20 mg Oral tab once daily [Active]; omeprazole 40 mg Oral cpDR 1 cap once jb4 daily [Active]; Eliquis 5 mg Oral tab 1 tab daily [Active]; carbidopa-levodopa 25-100 mg Oral TbER 2 tabs 3 times per day [Active]; bupropion HCl 50 mg Oral tab nightly [Active]; atorvastatin oral oral [Active]; - PMHx: 21:03 Atrial Fib; Depression; Hypertension; Pacemaker; Parkinsons; jb4 - PSHx: 21:03 pacemaker implantation; jb4 - Immunization history:: Adult Immunizations up to date, Flu vaccine is up to date. - Social history:: Smoking status: Patient/guardian denies using tobacco. - Ebola Screening: : No symptoms or risks identified at this time. Screenin:00 Abuse screen: Denies threats or abuse. Nutritional screening: No deficits noted. jb4 Tuberculosis screening: No symptoms or risk factors identified. 22:00 Fall Risk Fall in past 12 months (25 points). Secondary diagnosis (15 points) jb4 Parkinson's . IV access (20 points). Total Naidu Fall Scale indicates High Risk Score (45 or more points). Fall prevention measures have been instituted. Side Rails Up X 2 Placed Close to Nursing Station Frequent Obs/Assessments Occuring As available patient and family educated on Fall Prevention Program and Strategies. Assessment: 21:00 General: Appears in no apparent distress. comfortable, Behavior is calm, cooperative, jb4 appropriate for age. Pain: Denies pain. Neuro: Level of Consciousness is awake, alert, obeys commands, Oriented to person, place, time, situation. Cardiovascular: Heart tones S1 S2 present Patient's skin is warm and dry. Respiratory: Airway is patent Respiratory effort is even, unlabored, Respiratory pattern is regular, symmetrical. GI: No signs and/or symptoms were reported involving the gastrointestinal system. : No signs and/or symptoms were reported regarding the genitourinary system. EENT: No signs and/or symptoms were reported regarding the EENT system. Derm: Skin has skin tears on right elbow. Skin is pink, warm \T\ dry. Musculoskeletal: Circulation, motion, and sensation intact. 22:00 Reassessment: Patient appears in no apparent distress at this time. Patient and/or jb4 family updated on plan of care and expected duration. Pain level reassessed. Patient is alert, oriented x 3, equal unlabored respirations, skin warm/dry/pink. 23:48 Reassessment: Patient appears in no apparent distress at this time. Patient and/or jb4 family updated on plan of care and expected duration. Pain level reassessed. Patient is alert, oriented x 3, equal unlabored respirations, skin warm/dry/pink. Patient states feeling better. 09/03 00:33 Reassessment: Patient appears in no apparent distress at this time. Patient and/or jb4 family updated on plan of care and expected duration. Pain level reassessed. Patient is alert, oriented x 3, equal unlabored respirations, skin warm/dry/pink. Vital Signs: 09/02 21:03 BP 162 / 64; Pulse 59; Resp 18; Temp 98.8; Pulse Ox 98% ; Height 5 ft. 8 in. (172.72 jb4 cm) (R); 21:41 BP 182 / 95; Pulse 60; Resp 18; Pulse Ox 100% on R/A; mt 22:30 BP 147 / 74; Pulse 60; Resp 18; Pulse Ox 99% on R/A; jb4 23:40 BP 173 / 84; Pulse 67; Resp 18; Pulse Ox 99% on R/A; mt 09/03 00:33 BP 163 / 77; Pulse 60; Resp 18; Pulse Ox 99% on R/A; jb4 ED Course: 09/02 20:57 Patient arrived in ED. fernanda 20:58 Kevin Mckenna, RN is Primary Nurse. jb4 21:00 Triage completed. jb4 21:00 Patient has correct armband on for positive identification. Bed in low position. Call jb4 light in reach. Side rails up X2. laboratory monitor on. Pulse ox on. NIBP on. 21:00 Initial lab(s) drawn, by me, sent to lab. Urine collected: clean catch specimen, clear. jb4 Inserted saline lock: 22 gauge in left antecubital area, using aseptic technique. Blood collected. 21:01 Frank Rivera MD is Attending Physician. kdr 21:03 Arm band placed on left wrist. jb4 21:13 CT Head C Spine In Process Unspecified. EDMS 21:21 X-ray completed. Patient tolerated procedure well. Patient moved back from radiology. az 21:22 Foot Right 3 View XRAY In Process Unspecified. EDMS 23:43 Pina Lopez MD is Hospitalizing Provider. kdr 09/03 00:33 No provider procedures requiring assistance completed. Patient admitted, IV remains in jb4 place. Administered Medications: No medications were administered Outcome: 09/02 23:44 Decision to Hospitalize by Provider. kdr 09/03 00:33 Admitted to Med/surg accompanied by tech, via stretcher, room 213, with chart, Report jb4 called to TC Chandra Condition: stable Instructed on the need for admit, Demonstrated understanding of instructions. 00:34 Patient left the ED. jb4 Signatures: Dispatcher [employer] EDMS Frank Rivera MD MD kdr Bryson, James, RN RN Meche Delatorre hi Jayleen Whitney RN RN ea Zavala, Araceli ma
[2018-09-03 01:25] VITALS: BMI 22.3
[2018-09-03] MEDS: NA CHLORIDE 0.9% 1,000 ML IV SCH ×2 (01:36→15:40)
[2018-09-03 02:01] LABS: Urine Appearance CLEAR; Urine Bilirubin NEGATIVE (NEG); Urine Blood NEGATIVE (NEG); Urine Color YELLOW; Urine Glucose NEGATIVE (NEG); Urine Protein NEGATIVE (NEG); Urine Specific Gravity <=1.005 (1.005-1.030)
[2018-09-03 02:16] LABS: Urine Microscopic Reflex NO UMIC
[2018-09-03 05:30] LABS: Absolute Lymphocytes (CBC) 1.2 K/uL (0.7-4.9); Absolute Monocytes 0.9 K/uL (0.1-1.3); Absolute Neutrophil 6.2 K/uL (1.8-8.0); Basophils % 0.4 % (0-1.3); Eosinophils % 1.8 % (0-4.4); Hematocrit 36.7 % (39.6-49.0); Lymphocytes % 14.1 % (15.3-44.8); MCH 32.1 pg (27.0-35.0); MCV 89.7 fL (80-100); MPV 7.1 fL (7.6-11.3); Monocytes % 10.9 % (3.3-12.3); RBC Red Blood Cell Count 4.09 M/uL (4.33-5.43)
[2018-09-03 05:49] LABS: Albumin 3.6 g/dL (3.4-5.0); Bilirubin Total 0.5 mg/dL (0.2-1.0); Magnesium 2.3 mg/dL (1.8-2.4); Phosphorus 2.8 mg/dL (2.5-4.9); Protein, Total 6.8 g/dL (6.4-8.2)
--- NOTE | 2018-09-03 08:18 | RAD REPORT ---
EXAM DESCRIPTION: RAD - Chest Pa And Lat (2 Views) - 09/03/2018 7:05 am CLINICAL HISTORY: Stroke protocol chest film COMPARISON: June 15 TECHNIQUE: PA and lateral views of the chest were obtained. FINDINGS: The lungs are clear of failure, infiltrate or mass. Lung markings are mildly prominent but stable. Heart size is normal and central vasculature is within normal limits. No pleural effusion or pneumothorax seen. No acute bony finding noted. No aortic abnormality. Left subclavian pacemak er in place. IMPRESSION: No acute cardiopulmonary process. No significant change from comparison.
[2018-09-03] MEDS: GABAPENTIN 100 MG CAP PO SCH ×2 (08:45→22:22)
[2018-09-03] MEDS ORDERED: METOPROLOL XL 25 MG TAB PO SCH (09:00)
--- NOTE | 2018-09-03 12:26 | EKG ---
Test Date: 2018-09-03 Test Time: 02:46:13 Community Resource Consultant: RT MEASUREMENT RESULTS: Intervals: Rate: 60 VA: 206 QRSD: 104 QT: 404 QTc: 404 [place]: P: VA: 206 QRS: -3 T: -10 INTERPRETIVE STATEMENTS: Electronic atrial pacemaker Nonspecific T wave abnormality Abnormal ECG Compared to ECG 08/25/2018 16:43:29 Sinus rhythm no longer present Possible ischemia no longer present T-wave abnormality still present Electronically Signed On 09-03-18 12:25:34 CDT by Mil Schilling
[2018-09-03] MEDS: RIVAROXABAN 15 MG TABLET PO SCH (18:16)
[2018-09-03] MEDS: HYDRALAZINE HCL 20 MG/ML VIAL IV PRN (18:22)
--- NOTE | 2018-09-03 18:32 | P.HP ---
Certification for Inpatient Patient admitted to: Inpatient With expected LOS: >2 Midnights Patient will require the following post-hospital care: None Practitioner: I am a practitioner with admitting privileges, knowledge of patient current condition, hospital course, and medical plan of care. Services: Services provided to patient in accordance with Admission requirements found in Title 42 Section 412.3 of the Code of Federal Regulations Patient History Date of Service: 09/03/18 Reason for admission: Altered mental status /fall History of Present Illness: Patient is a 73-year-old gentleman who came into the hospital with confusion after falling. 1 week prior patient was seen in the hospital for an electrical cardioversion. Patient had been in atrial fibrillation. On arrival to the emergency room patient had a CT of the head and C-spine which was negative. Patient did have some left-sided weakness. The patient feels much better. Patient's mentation is much improved. Patient will be admitted to the hospital for further evaluation. Patient's renal function is more elevated than normal. Patient also has confusion as far as the event that occurred after the patient fell. We will admit the patient for further evaluation and workup at this time. Allergies No Known Allergies Allergy (Verified 09/03/18 01:54) Home Medications: Atorvastatin Calcium [Lipitor] 10 mg PO BEDTIME 09/03/18 Carbidopa/Levodopa 25-100 [Sinemet 25-100*] 2 tab PO TID 09/03/18 Metoprolol Succinate [Toprol Xl] 100 mg PO DAILY 09/03/18 Omeprazole [Prilosec] 40 mg PO DAILY 09/03/18 Oxybutynin Chloride [Oxybutynin Chloride ER] 15 mg PO DAILY 09/03/18 Quetiapine Fumarate [Seroquel] 25 mg PO BEDTIME 09/03/18 Vortioxetine Hydrobromide [Brintellix] 20 mg PO DAILY 09/03/18 buPROPion HCl [Bupropion HCl] 100 mg PO DAILY 09/03/18 - Past Medical/Surgical History Has patient received pneumonia vaccine in the past: Yes Diabetic: No -: HTN -: Hyperlipidemia -: Parkinson's Disease -: A-fib -: Anxiety -: Depression -: Pacemaker -: Pacemaker placement - Family History Father Medical History: Heart disease Mother Medical History: Cancer - Social History Smoking Status: Former smoker Alcohol use: Yes CD- Drugs: No Caffeine use: Yes Place of Residence: Home Review of Systems 10-point ROS is otherwise unremarkable Physical Examination - Vital Signs Temperature: 98.1 F Blood Pressure: 170/83 Pulse: 62 Respirations: 16 Pulse Ox (%): 98 - Physical Exam General: Alert, In no apparent distress, Oriented x3 HEENT: Atraumatic, PERRLA, Mucous membr. moist/pink, EOMI, Sclerae nonicteric Neck: Supple, 2+ carotid pulse no bruit, No LAD, Without JVD or thyroid abnormality Respiratory: Clear to auscultation bilaterally, Normal air movement Cardiovascular: Regular rate/rhythm, Normal S1 S2 Gastrointestinal: Normal bowel sounds, Soft and benign, Non-distended, No tenderness Musculoskeletal: No clubbing, No swelling, No tenderness Integumentary: No rashes Neurological: Normal gait, Normal speech, Normal strength at 5/5 x4 extr, Normal tone, Normal affect Lymphatics: No axilla or inguinal lymphadenopathy - Studies Laboratory Data (last 24 hrs) 09/02/18 21:40: Sodium 139, Potassium 4.1, BUN 26 H, Creatinine 2.00 H, Glucose 116 H 09/02/18 21:40: WBC 7.1, Hgb 12.6 L, Hct 35.8 L, Plt Count 189 Assessment & Plan - Problems (Diagnosis) (1) Syncope and collapse Current Visit: Yes Status: Acute (2) JOSELIN (acute kidney injury) Current Visit: No Status: Acute (3) Atrial fibrillation Onset Date: 04/07/16 Current Visit: No Status: Acute (4) Fall Current Visit: No Status: Acute (5) Parkinson disease Current Visit: No Status: Acute (6) Renal failure Onset Date: 04/07/16 Current Visit: No Status: Acute (7) Weakness Onset Date: 04/07/16 Current Visit: No Status: Acute - Plan -IV hydration -cultures are pending -check renal function and electrolytes -Neurochecks q4h -monitor on telemetry -bed check in place -physical therapy evaluation once mentation is improved -discuss code status with family Discharge Plan: Home Plan to discharge in: 24 Hours - Advance Directives Does patient have a Living Will: No Does patient have a Durable POA for Healthcare: No - Code Status/Comfort Care Code Status Assessed: Yes Code Status: Full Code Critical Care: No
[2018-09-03] MEDS ORDERED: CARBIDOPA/LEVODOPA 25/100 TAB PO SCH (21:00)
[2018-09-03] MEDS: ATORVASTATIN 10 MG TAB PO SCH (22:22)
[2018-09-03] MEDS: QUETIAPINE 25 MG TAB PO SCH (22:23)
[2018-09-03] MEDS: CARBIDOPA/LEVODOPA 25/100 TAB PO SCH (22:23)
[2018-09-04] MEDS: PANTOPRAZOLE 40MG TABLET PO SCH (06:33)
[2018-09-04] MEDS: NA CHLORIDE 0.9% 1,000 ML IV SCH ×3 (06:34→21:54)
[2018-09-04] MEDS ORDERED: HOME MED 1 EA UNK (Omeprazole [Prilosec] 40 MG) PO SCH (09:00)
[2018-09-04] MEDS: HOME MED 1 EA UNK (Vortioxetine Hydrobromide [Trintellix] 20 MG) PO SCH (09:00)
[2018-09-04] MEDS: CARBIDOPA/LEVODOPA 25/100 TAB PO SCH ×3 (11:20→21:55)
[2018-09-04] MEDS: METOPROLOL XL 100 MG TAB PO SCH (11:20)
[2018-09-04] MEDS: buPROPion HCl 100 MG TAB PO SCH (11:21)
[2018-09-04] MEDS: GABAPENTIN 100 MG CAP PO SCH ×2 (11:21→21:54)
[2018-09-04] MEDS: OXYBUTYNIN ER 5 MG TAB PO SCH (11:22)
--- NOTE | 2018-09-04 14:28 | PN ---
Subjective: Currently, the patient is sitting in bed. He looks comfortable. He has no chest pain. No abdominal pain overnight. He still little bit confused or slow to respond to question. He is aw are of his date of and address. He has no chest pain. No abdominal pain. No fever or chills. Review of Systems: Otherwise negative. Objective: Vital Signs: Currently; blood pressure 146/77, respiratory rate 16, pulse 114, temperatu re 98.2. General: The patient is alert and oriented x3. Does not look in any distress. HEENT: Atraumatic, normocephalic. PERRLA. Oral mucosa is moist. Neck: Supple. No JVD. No carotid bruits. Chest: Clear to auscultation with good air entry. Heart: Irregular rate and rhythm. Tachy. No gallop or murmur. Abdomen: Soft, nontender. No masses. Bowel sounds positive. Extremities: No clubbing, no cyanosis, or edema. Multiple ecchymoses noted on the exam. The patien t has cogwheel rigidity secondary to his Parkinson's, slow speech. Labs: Today showed CBC was normal except for hemoglobin of 13.2. Chemistry within normal limits exc ept for BUN of 24 and creatinine of 1.7. GFR 40. MRI of the brain is still pending. Impression And Plan: 1.Syncope with a recent fall. We will proceed with workup for syncope with an echocardiogram and ca rotid Doppler. The patient already had a negative CT of the head. MRI ordered, but still pending be cause of the weekend. If all workup is negative, then could be secondary to orthostatic hypotension, given patient's renal insufficiency and dehydration. 2.Acute renal failure. The patient stated he had never history of renal insufficiency. We will con tinue IV fluids. The creatinine is improving, but still not normal. 3.Atrial fibrillation history paroxysmal. Te patient has a pacemaker. This morning, his heart rate in the 116. I will check his TSH and magnesium and will obtain a cardiology consult. The patient i s hemodynamically stable. 4.History of recent fall secondary to syncope, which could be again secondary to his orthostatic hyp otension. 5.Parkinson disease. Continue the patient on carbidopa levodopa as before. 6.Weakness. We will obtain physical therapy with PT/OT for discharge planning. 7.Hypertension, not well controlled. The patient on p.r.n. hydralazine. I will resume his metoprol ol as before. 8.Hyperlipidemia. We will resume statin. 9.Discharge plan after workup for syncope done including MRI and physical therapy assessment. The p wilberto lives at home. We may need to get social work involved to find outpatient will be fit to go h ome. ROMAINE/SARBJIT Voice ID: [id number] Report ID: [id number]
[2018-09-04] MEDS: RIVAROXABAN 15 MG TABLET PO SCH (17:30)
[2018-09-04] MEDS: ATORVASTATIN 10 MG TAB PO SCH (21:55)
[2018-09-04] MEDS: QUETIAPINE 25 MG TAB PO SCH (21:55)
--- NOTE | 2018-09-05 02:35 | CON ---
Date of Consultation: 09/03/[address] Barrera's service on 09/02/2018. I saw the patient on 09/03/2018. Reason For Consultation: Altered mental status. Atrial fibrillation. History Of Present Illness: Mr. Barajas is a 73-year-old. He is a patient of mine in the office. Has had a pacemaker in 2014, in July of 2018 I converted him from atrial flutter to sinus rhythm and I put him on Eliquis that he has been taking. He has history of parkinsonism, depression, and hyper tension. He is on Sinemet, Lipitor, metoprolol, hydralazine, Protonix, Wellbutrin, and Seroquel. Th e main reason he came in was altered mental status and weakness and multiple falls, cannot get up. H e denies chest pain, PND, orthopnea, pedal edema, palpitations, or syncope. Allergies: NONE. Review of Systems: Negative. Social History: Negative. Family History: Negative. Medications: Listed earlier. Physical Examination: General: He was alert, oriented x3, blood pressure is 165/86. He was in a paced rhythm. HEENT: Negative. Neck: Supple. No bruit. Chest: Clear. Cardiac: Revealed a paced rhythm. Abdomen: Benign. Extremities: Revealed no clubbing, cyanosis, or edema. Diagnostic Data: Positive for creatinine of 1.7. Rest of the blood work was negative. Chest x-ray was negative. EKG is paced. Impression And Plan: Chronic atrial fibrillation and flutter that had been converted to sinus rhythm , may still be paroxysmal. He has a pacemaker. Rate is controlled. He is completely paced. He is having multiple fall episodes, may be orthostatic and may be secondary to parkinsonism and polypharma cy. I will check his pacemaker tomorrow. I will recheck another echocardiogram tomorrow. We may majano ve to adjust his medical regimen. I will discuss the case further with Dr. Barrera and Dr. Balderas, ne urologist. Neurology consultation may be reasonable. His blood pressure is fairly well controlled. NB/MODL Voice ID: [id number] Report ID: [id number]
[2018-09-05] MEDS: NA CHLORIDE 0.9% 1,000 ML IV SCH ×4 (05:55→21:40)
[2018-09-05] MEDS: PANTOPRAZOLE 40MG TABLET PO SCH (05:56)
[2018-09-05] MEDS: HOME MED 1 EA UNK (Vortioxetine Hydrobromide [Trintellix] 20 MG) PO SCH (09:00)
--- NOTE | 2018-09-05 09:10 | EKG ---
Test Date: 2018-09-04 Test Time: 07:44:32 Air Brush Decorator: MIKI Stone MEASUREMENT RESULTS: Intervals: Rate: 112 TN: QRSD: 100 QT: 292 QTc: 398 [place]: P: -90 TN: QRS: 11 T: 254 INTERPRETIVE STATEMENTS: Atrial flutter with variable AV block Nonspecific ST and T wave abnormality Abnormal ECG Compared to ECG 09/03/2018 02:46:13 Atrial flutter has replaced atrial-paced rhythm Electronically Signed On 09-05-18 09:09:40 CDT by Berry Grayson
[2018-09-05] MEDS: AMLODIPINE 5 MG TAB PO SCH (09:57)
[2018-09-05] MEDS: OXYBUTYNIN ER 5 MG TAB PO SCH (09:57)
[2018-09-05] MEDS: buPROPion HCl 100 MG TAB PO SCH (09:57)
[2018-09-05] MEDS: GABAPENTIN 100 MG CAP PO SCH ×2 (09:58→21:36)
[2018-09-05] MEDS: CARBIDOPA/LEVODOPA 25/100 TAB PO SCH ×3 (09:58→21:38)
[2018-09-05] MEDS: METOPROLOL XL 100 MG TAB PO SCH (09:58)
[2018-09-05 10:40] LABS: Absolute Monocytes 0.7 K/uL (0.1-1.3); Absolute Neutrophil 5.3 K/uL (1.8-8.0); Basophils % 0.8 % (0-1.3); Eosinophils % 2.5 % (0-4.4); Hematocrit 36.9 % (39.6-49.0); Lymphocytes % 14.3 % (15.3-44.8); MCH 31.6 pg (27.0-35.0); MCV 91.1 fL (80-100); Monocytes % 9.3 % (3.3-12.3); RBC Red Blood Cell Count 4.05 M/uL (4.33-5.43)
[2018-09-05 11:02] LABS: Potassium 3.4 mmol/L (3.5-5.1)
--- NOTE | 2018-09-05 11:52 | P.PN ---
Subjective Date of Service: 09/05/18 Chief Complaint: Altered mental status /fall Patient seen and examined at bedside. No family at bedside. Patient denying any concerns or complaints this morning. Denies any chest pain, shortness of breath, palpitations or nausea/vomiting. Patient and baseline for his mentation. Review of Systems As noted above Physical Examination - Vital Signs Temperature: 97.8 F Blood Pressure: 184/85 Pulse: 59 Respirations: 16 Pulse Ox (%): 98 - Physical Exam General: Alert, In no apparent distress HEENT: Atraumatic, PERRLA, EOMI Neck: Supple, JVD not distended Respiratory: Clear to auscultation bilaterally, Normal air movement Cardiovascular: Regular rate/rhythm, Normal S1 S2 Gastrointestinal: Normal bowel sounds, No tenderness Musculoskeletal: No tenderness Integumentary: No rashes Neurological: Normal speech, Normal tone, Normal affect - Studies Medications List Reviewed: Yes Assessment And Plan - Plan This is a 73-year-old male with multiple medical comorbidities admitted for altered mental status/fall now back to baseline mentation. -syncope with a recent fall: The CT of the head negative. MRI ordered, pending. We will have to see if MRI can be done with his pacemaker in place. This syncope/falls likely secondary to orthostatics hypotension given patient's renal insufficiency and dehydration. This could also be due to polypharmacy. Will do a med reconciliation/for few prior to discharge. Can't tinea IV fluids and encourage p.o. hydration. - acute renal failure. Per patient, no history of any kidney/renal disease. Continue IV fluids, creatinine back in the normal range. Again, will to med reconciliation. - atrial fibrillation history with poor ox insulins. Patient does have a pacemaker. States that it was checked 9 months ago but is unsure of the history. At the time of my exam, patient was in sinus rhythm. Denying any chest pain or palpitations. TSH in normal range. Magnesium is normal range. Cardiology consulted, recommendations appreciated. As he is pending a pacemaker check, will continue working on that. He remained hemodynamically stable. - Parkinson disease: Continue his home carbidopa/levodopa as before. - weakness: Physical therapy ordered, pending - hypertension, he not well controlled. Continue metoprolol and p.r.n. hydralazine. Will need to do a med review as patient with syncope fall, may need to make adjustments to blood pressure medication. - hyperlipidemia continue statin Disposition: With symptomatic improvement. Pending MRI. He will need a medication review prior to discharge.
--- NOTE | 2018-09-05 13:14 | ECHO ---
HEIGHT: 5 ft 8 in WEIGHT: 147 lb 0 oz DATE OF STUDY: 09/05/[address]: Pina Lopez MD 2-DIMENSIONAL: YES M.MODE: YES DOPPLER: YES COLOR FLOW: YES TDS: PORTABLE: DEFINITY: BUBBLE STUDY: DIAGNOSIS: STROKE CARDIAC HISTORY: CATHERIZATION: NO SURGERY: YES PROSTHETIC VALVE: NO PACEMAKER: YES MEASUREMENTS (cm) DIASTOLIC (NORMALS) SYSTOLIC (NORMALS) IVSd 1.0 (0.6-1.2) LA Diam 3.6 (1.9-4.0) LVEF 62% LVIDd 4.4 (3.5-5.7) LVIDs 2.9 (2.0-3.5) %FS 33% LVPWd 1.2 (0.6-1.2) Ao Diam 3.3 (2.0-3.7) 2 DIMENSIONAL ASSESSMENT: RIGHT ATRIUM: NORMAL LEFT ATRIUM: NORMAL RIGHT VENTRICLE: NORMAL LEFT VENTRICLE: NORMAL TRICUSPID VALVE: NORMAL MITRAL VALVE: MITRAL ANNULAR CALCIFICATION PULMONIC VALVE: NORMAL AORTIC VALVE: NORMAL PERICARDIAL EFFUSION: NONE AORTIC ROOT: NORMAL LEFT VENTRICULAR WALL MOTION: NORMAL DOPPLER/COLOR FLOW: NORMAL COMMENTS: PACER IN RIGHT VENTRICULAR APEX. NORMAL LEFT VENTRICULAR SIZE AND FUNCTION. MITRAL ANNULAR CALCIFICATION. TECHNOLOGIST: GABRIELLA SARABIA
[2018-09-05] MEDS: RIVAROXABAN 15 MG TABLET PO SCH (18:28)
[2018-09-05] MEDS: QUETIAPINE 25 MG TAB PO SCH (21:37)
[2018-09-05] MEDS: ATORVASTATIN 10 MG TAB PO SCH (21:37)
[2018-09-05] MEDS: HYDRALAZINE HCL 20 MG/ML VIAL IV PRN (22:04)
--- NOTE | 2018-09-06 03:18 | PN ---
Date of Progress Note: 09/05/2018 History Of Present Illness: Mr. Barajas had come in with just weakness and inability to the to walk wel l. He has a history of severe parkinsonism. He has a pacemaker that was placed in 2014. His pacema ker checked out okay, and his echocardiogram was normal without any evidence of wall motion abnormali ties or effusion. I agree with him going home today whenever it is okay with his primary care physic delio. I will see him in the office in the near future. Neurology may need to be involved in decreasi ng some of his medical regimen as I believe this is the cause of his weakness. NB/MODL Voice ID: [id number] Report ID: [id number]
[2018-09-06] MEDS: HYDRALAZINE HCL 20 MG/ML VIAL IV PRN (03:20)
[2018-09-06] MEDS: NA CHLORIDE 0.9% 1,000 ML IV SCH ×3 (03:21→19:00)
[2018-09-06 05:02] LABS: Potassium 3.5 mmol/L (3.5-5.1)
[2018-09-06] MEDS ORDERED: POTASSIUM CL SA 10 MEQ TAB PO ONE (05:05)
[2018-09-06] MEDS: PANTOPRAZOLE 40MG TABLET PO SCH (05:22)
[2018-09-06] MEDS: HOME MED 1 EA UNK (Vortioxetine Hydrobromide [Trintellix] 20 MG) PO SCH (09:00)
[2018-09-06] MEDS: OXYBUTYNIN ER 5 MG TAB PO SCH (09:40)
[2018-09-06] MEDS: AMLODIPINE 5 MG TAB PO SCH (09:40)
[2018-09-06] MEDS: METOPROLOL XL 100 MG TAB PO SCH (09:40)
[2018-09-06] MEDS: CARBIDOPA/LEVODOPA 25/100 TAB PO SCH ×3 (09:40→19:56)
[2018-09-06] MEDS: GABAPENTIN 100 MG CAP PO SCH ×2 (09:40→19:56)
[2018-09-06] MEDS: buPROPion HCl 100 MG TAB PO SCH (09:40)
--- NOTE | 2018-09-06 16:50 | P.DS ---
Admission Date: 09/02/18 Discharge Date: 09/06/18 Disposition: ROUTINE DISCHARGE Discharge Condition: GOOD Reason for Admission: Altered mental status /fall Consultations: Cardiology, Dr. Schilling Brief History of Present Illness: Patient is a 73-year-old gentleman who came into the hospital with confusion after falling. 1 week prior patient was seen in the hospital for an electrical cardioversion. Patient had been in atrial fibrillation. On arrival to the emergency room patient had a CT of the head and C-spine which was negative. Patient did have some left-sided weakness. The patient feels much better. Patient's mentation is much improved. Patient will be admitted to the hospital for further evaluation. Patient's renal function is more elevated than normal. Patient also has confusion as far as the event that occurred after the patient fell. We will admit the patient for further evaluation and workup at this time. Hospital Course: Patient was admitted, IV hydration was started. Cultures were sent along with renal labs and electrolytes. Patient was placed on continuous telemetry monitoring. CT of the head was done, which was negative. An MRI was unable to be done as we were not able to contact his pacemaker company and therefore we were not sure if pacemaker was MRI safe. The patient returned to baseline mentation, and he does follow up with Dr. Pratt outpatient, with recommend outpatient followup with Dr. Pratt. This syncope/fall were likely secondary to orthostatics hypotension given this patient's renal function and dehydration upon admission. This resolved with IV hydration. We continue to encourage oral hydration after discharge. It also seems that the patient was taking 100 mg metoprolol XL and 50 mg of Toprol b.i.d.? Discuss with patient to take Toprol-XL 100 mg once a day. As he will also followup with neurology for possible changes in medications, which could be contributing to symptoms. His acute renal failure resolved with IV hydration. For his history of atrial fibrillation, with pacemaker: his pacemaker was checked during this hospitalization, remained stable. For his history of Parkinson disease: He remained stable and on his home medications. No changes made to his Parkinson disease medication at this time. He will follow up with neurology outpatient for potential changes. For his hypertension, he will continue his metoprolol 100 mg XL daily. He will follow up with Cardiology in 2 weeks. He will continue statin for his hyperlipidemia. Vital Signs/Physical Exam: Temp Pulse Resp BP Pulse Ox 97.6 F 60 18 111/60 99 09/06/18 12:00 09/06/18 12:00 09/06/18 12:00 09/06/18 12:00 09/06/18 12:00 General: Alert, In no apparent distress HEENT: Atraumatic, PERRLA, EOMI Neck: Supple, JVD not distended Respiratory: Clear to auscultation bilaterally, Normal air movement Cardiovascular: Regular rate/rhythm, Normal S1 S2 Gastrointestinal: Normal bowel sounds, No tenderness Musculoskeletal: No tenderness Integumentary: No rashes Neurological: Normal speech, Normal tone, Normal affect Laboratory Data at Discharge: WBC 7.2 K/uL (4.3-10.9) D 09/05/18 10:13 Hgb 12.8 g/dL (13.6-17.9) L 09/05/18 10:13 Hct 36.9 % (39.6-49.0) L 09/05/18 10:13 Plt Count 172 K/uL (152-406) 09/05/18 10:13 Sodium 143 mmol/L (136-145) 09/06/18 04:25 Potassium 3.5 mmol/L (3.5-5.1) 09/06/18 04:25 BUN 16 mg/dL (7-18) 09/06/18 04:25 Creatinine 1.10 mg/dL (0.55-1.3) 09/06/18 04:25 Glucose 98 mg/dL (74-106) 09/06/18 04:25 Phosphorus 2.8 mg/dL (2.5-4.9) 09/03/18 05:11 Magnesium 2.3 mg/dL (1.8-2.4) 09/03/18 05:11 Total Bilirubin 0.5 mg/dL (0.2-1.0) 09/03/18 05:11 AST 23 U/L (15-37) 09/03/18 05:11 ALT 16 U/L (12-78) 09/03/18 05:11 Alkaline Phosphatase 75 U/L (45-117) 09/03/18 05:11 Triglycerides 81 mg/dL (<150) 09/03/18 05:11 Cholesterol 160 mg/dL (<200) 09/03/18 05:11 HDL Cholesterol 62 mg/dL (40-60) H 09/03/18 05:11 Cholesterol/HDL Ratio 2.58 09/03/18 05:11 Home Medications: Atorvastatin Calcium [Lipitor*] 10 mg PO BEDTIME 09/03/18 Carbidopa/Levodopa 25-100 [Sinemet 25-100*] 2 tab PO TID 09/03/18 Metoprolol Succinate [Toprol Xl] 100 mg PO DAILY 09/03/18 Omeprazole [Prilosec] 40 mg PO DAILY 09/03/18 Oxybutynin Chloride [Oxybutynin Chloride ER] 15 mg PO DAILY 09/03/18 Pimavanserin Tartrate [Nuplazid] 2 tab PO DAILY 09/03/18 Quetiapine Fumarate [Seroquel] 25 mg PO BEDTIME 09/03/18 Vortioxetine Hydrobromide [Trintellix] 20 mg PO DAILY 09/03/18 buPROPion HCl [Bupropion HCl] 100 mg PO DAILY 09/03/18 Rivaroxaban [Xarelto*] 15 mg PO DAILY AT SUPPER #30 tablet 09/06/18 New Medications: Rivaroxaban [Xarelto*] 15 mg PO DAILY AT SUPPER #30 tablet Patient Discharge Instructions: Please follow up with the primary care physician in 1 week. Please follow up with Cardiology in 2 weeks. Please follow up with neurology in 1-2 weeks. Diet: AHA Activity: Fall precautions Followup: Mil Schilling MD [ACTIVE - CAN ADMIT] - Mayur Pratt MD [ASSOCIATE-ACTIVE - CAN ADMIT] - Time spent managing pt's care (in minutes): 55
[2018-09-06] MEDS: RIVAROXABAN 15 MG TABLET PO SCH (17:00)
--- NOTE | 2018-09-06 17:38 | RAD REPORT ---
EXAM DESCRIPTION: CT - Head Brain Wo Cont - 09/06/2018 5:23 pm CLINICAL HISTORY: fall Syncope COMPARISON: Head Brain Wo Cont dated 08/25/2018; Head Brain Wo Cont dated 06/15/2018; Head C Spine Mpr Wo Con dated 09/02/2018 TECHNIQUE: All CT scans are performed using dose optimization technique as appropriate and may inclu de automated exposure control or mA/KV adjustment according to patient size. FINDINGS: No intracranial hemorrhage, hydrocephalus or extra-axial fluid collection.Mild generalized brain atrophy is present with mild periventricular and deep white matter chronic microvascular ische dione changes.No areas of brain edema or evidence of midline shift. Small mucous retention cyst or polyp is present in the inferior left maxillary antrum. The paranasal sinuses and mastoids are otherwise clear. The calvarium is intact. The left vertebral artery is ather osclerotic. IMPRESSION: No acute intracranial abnormality.
[2018-09-06] MEDS: QUETIAPINE 25 MG TAB PO SCH (19:55)
[2018-09-06] MEDS: ATORVASTATIN 10 MG TAB PO SCH (19:55)
[2018-09-07] MEDS: NA CHLORIDE 0.9% 1,000 ML IV SCH ×4 (01:51→23:46)
[2018-09-07] MEDS: HYDRALAZINE HCL 20 MG/ML VIAL IV PRN (04:11)
[2018-09-07 05:55] LABS: Magnesium 1.7 mg/dL (1.8-2.4); Phosphorus 2.3 mg/dL (2.5-4.9); Potassium 3.5 mmol/L (3.5-5.1)
[2018-09-07] MEDS ORDERED: MAGNESIUM SULFATE 1 gm IVPB 1 GM/100 ML BAG IV ONE (06:13)
[2018-09-07] MEDS: PANTOPRAZOLE 40MG TABLET PO SCH (06:30)
[2018-09-07] MEDS: HOME MED 1 EA UNK (Vortioxetine Hydrobromide [Trintellix] 20 MG) PO SCH (09:00)
[2018-09-07] MEDS: GABAPENTIN 100 MG CAP PO SCH ×2 (09:00→20:16)
[2018-09-07] MEDS ORDERED: POTASSIUM PHOS IN 0.9 % NACL 15 MMOL/250 ML BAG IV ONE (09:00)
[2018-09-07] MEDS: OXYBUTYNIN ER 5 MG TAB PO SCH (09:48)
[2018-09-07] MEDS: METOPROLOL XL 100 MG TAB PO SCH (09:48)
[2018-09-07] MEDS: AMLODIPINE 5 MG TAB PO SCH (09:48)
[2018-09-07] MEDS: buPROPion HCl 100 MG TAB PO SCH (09:48)
[2018-09-07] MEDS: CARBIDOPA/LEVODOPA 25/100 TAB PO SCH ×3 (09:49→20:16)
--- NOTE | 2018-09-07 15:22 | P.PN ---
Subjective Date of Service: 09/07/18 Chief Complaint: Altered mental status /fall Patient seen and examined at bedside. No family at bedside. Patient was supposed to be discharged yesterday, discharge held because patient had a fall while walking on his own, getting up from his chair. This morning, he denies any pain, headache, vision changes, dizziness. Patient denying any concerns or complaints this morning. Denies any chest pain, shortness of breath, palpitations or nausea/vomiting. Patient and baseline for his mentation. Review of Systems As noted above Physical Examination - Vital Signs Temperature: 97.1 F Blood Pressure: 90/55 Pulse: 69 Respirations: 17 Pulse Ox (%): 97 - Physical Exam General: Alert, In no apparent distress HEENT: Atraumatic, PERRLA, EOMI Neck: Supple, JVD not distended Respiratory: Clear to auscultation bilaterally, Normal air movement Cardiovascular: Regular rate/rhythm, Normal S1 S2 Gastrointestinal: Normal bowel sounds, No tenderness Musculoskeletal: No tenderness Integumentary: No rashes Neurological: Normal speech, Normal tone, Normal affect - Studies Medications List Reviewed: Yes Assessment And Plan - Plan This is a 73-year-old male with multiple medical comorbidities admitted for altered mental status/fall now back to baseline mentation. -syncope with a recent fall: Initial CT of the head negative. Unable to do an MRI as patient has a pacemaker in place. We were unable to get a hold of pacemaker company in order to see if patient is MRI safe. Falls are likely secondary to orthostatics/ hypertension given initial renals the same insufficiency and dehydration. Though this could also be secondary to poly pharmacy. The patient was going to be discharged yesterday though he had another fall in the hospital while getting out of his chair on his own. He is not a safe discharge home as he lives by himself. Does have a daughter and sister in [place], though they have no contact with each other. He will need placement. As patient was alert oriented x3 this morning we discussed [facility]. Patient is in agreement. Social work involved for [facility] placement. - s/p fall in hospital: See above plan - acute renal failure. Per patient, no history of any kidney/renal disease. Continue IV fluids, creatinine back in the normal range. - atrial fibrillation history with a pacemaker. Patient does have a pacemaker. States that it was checked 9 months ago but is unsure of the history. At the time of my exam, patient was in sinus rhythm. Denying any chest pain or palpitations. TSH in normal range. Magnesium is normal range. Cardiology consulted, recommendations appreciated. As he is pending a pacemaker checked, no abnormalities noted. - Parkinson disease: Continue his home carbidopa/levodopa as before. - weakness: Physical therapy consulted. - hypertension, Continue metoprolol and p.r.n. hydralazine. - hyperlipidemia continue statin DVT prophylaxis: Xarelto Diet: Heart healthy Disposition: Pending [facility] facility placement for when patient is ready for discharge.
[2018-09-07] MEDS: RIVAROXABAN 15 MG TABLET PO SCH (17:00)
[2018-09-07] MEDS: ATORVASTATIN 10 MG TAB PO SCH (20:16)
[2018-09-07] MEDS: QUETIAPINE 25 MG TAB PO SCH (20:16)
[2018-09-08] MEDS: PANTOPRAZOLE 40MG TABLET PO SCH (05:22)
[2018-09-08] MEDS: NA CHLORIDE 0.9% 1,000 ML IV SCH (06:44)
[2018-09-08 07:00] LABS: Magnesium 1.9 mg/dL (1.8-2.4); Potassium 3.7 mmol/L (3.5-5.1)
[2018-09-08] MEDS ORDERED: POTASSIUM CL SA 10 MEQ TAB PO ONE (09:00)
[2018-09-08] MEDS: HOME MED 1 EA UNK (Vortioxetine Hydrobromide [Trintellix] 20 MG) PO SCH (09:00)
[2018-09-08] MEDS: METOPROLOL XL 100 MG TAB PO SCH (10:07)
[2018-09-08] MEDS: GABAPENTIN 100 MG CAP PO SCH ×2 (10:07→20:03)
[2018-09-08] MEDS: CARBIDOPA/LEVODOPA 25/100 TAB PO SCH ×3 (10:07→20:03)
[2018-09-08] MEDS: OXYBUTYNIN ER 5 MG TAB PO SCH (10:07)
[2018-09-08] MEDS: AMLODIPINE 5 MG TAB PO SCH (10:08)
[2018-09-08] MEDS: buPROPion HCl 100 MG TAB PO SCH (10:08)
--- NOTE | 2018-09-08 15:07 | P.PN ---
Subjective Date of Service: 09/08/18 Primary Care Provider: Dr. Ontiveros; Cardiology-Dr. Schilling; Neurology-Dr. Pratt Chief Complaint: Altered mental status /fall Subjective: Improving (Patient improving. Still with weakness.) Physical Examination - Vital Signs Temperature: 98.4 F Blood Pressure: 183/81 Pulse: 60 Respirations: 18 Pulse Ox (%): 98 - Physical Exam General: Alert, In no apparent distress, Cooperative HEENT: Atraumatic Neck: Supple Respiratory: Clear to auscultation bilaterally, Normal air movement Cardiovascular: Normal pulses, Regular rate/rhythm Gastrointestinal: Normal bowel sounds, Soft and benign, Non-distended Musculoskeletal: No tenderness, No warmth Integumentary: No erythema, No warmth, No cyanosis Neurological: Normal speech, Normal strength at 5/5 x4 extr, Normal tone, Normal affect - Studies Medications List Reviewed: Yes Assessment & Plan Discharge Plan: Other (Skilled placement facility) Plan to discharge in: 24 Hours Physician Review Additional Text: Impression: Syncope with fall, high risk for injury Acute renal failure, resolved Status post fall in hospital Atrial fibrillation with history of pacemaker on chronic anti coagulation therapy Parkinson's disease Hypertension Hyperlipidemia Depression Urinary incontinence Plan: Syncope with fall, high risk for injury: CVA ruled out. Medications adjusted. Continue with physical therapy. Options for home health and skilled placement address in detail with patient. Will pursue skilled placement at this time. Medications reviewed and adjusted. Continue with physical therapy. Will monitor her progress closely. Acute renal failure, resolved: Will discontinue IV fluids. Will monitor closely. Status post fall in hospital: Continue with physical therapy. Will monitor closely Atrial fibrillation with history of pacemaker on chronic anti coagulation therapy: Continue with medication. Adjustments made. Parkinson's disease: Continue with medication. Will monitor closely. Fall precautions in place. Hypertension: Adjustments made to medication. Will monitor blood pressure closely. Will monitor and adjust. Hyperlipidemia: Continue the medication. Depression: Continue with medication. Will monitor closely. Urinary incontinence: Continue with medication Time Spent Managing Pts Care (In Minutes): 55
[2018-09-08] MEDS: RIVAROXABAN 15 MG TABLET PO SCH (17:45)
[2018-09-08] MEDS: QUETIAPINE 25 MG TAB PO SCH (20:03)
[2018-09-08] MEDS: ATORVASTATIN 10 MG TAB PO SCH (20:03)
[2018-09-08] MEDS: HYDRALAZINE HCL 20 MG/ML VIAL IV PRN (21:53)
[2018-09-09] MEDS: PANTOPRAZOLE 40MG TABLET PO SCH (05:36)
[2018-09-09 06:16] LABS: Magnesium 1.9 mg/dL (1.8-2.4); Potassium 3.9 mmol/L (3.5-5.1)
[2018-09-09] MEDS ORDERED: POTASSIUM CL SA 10 MEQ TAB PO ONE (07:20)
[2018-09-09] MEDS: OXYBUTYNIN ER 5 MG TAB PO SCH (08:15)
[2018-09-09] MEDS: METOPROLOL XL 100 MG TAB PO SCH (08:16)
[2018-09-09] MEDS: AMLODIPINE 5 MG TAB PO SCH (08:17)
[2018-09-09] MEDS: CARBIDOPA/LEVODOPA 25/100 TAB PO SCH ×3 (08:18→20:12)
[2018-09-09] MEDS: HOME MED 1 EA UNK (Vortioxetine Hydrobromide [Trintellix] 20 MG) PO SCH (08:18)
[2018-09-09] MEDS: GABAPENTIN 100 MG CAP PO SCH ×2 (08:18→20:11)
[2018-09-09] MEDS: buPROPion HCl 100 MG TAB PO SCH (08:18)
--- NOTE | 2018-09-09 11:52 | P.PN ---
Subjective Date of Service: 09/09/18 Primary Care Provider: Dr. Ontiveros; Cardiology-Dr. Schilling; Neurology-Dr. Pratt Chief Complaint: Altered mental status /fall Subjective: Other (Patient improving. Still requires physical therapy for improvement.) Physical Examination - Vital Signs Temperature: 98.3 F Blood Pressure: 138/67 Pulse: 60 Respirations: 16 Pulse Ox (%): 98 - Physical Exam General: Alert, In no apparent distress, Oriented x3, Cooperative HEENT: Atraumatic Neck: Supple Respiratory: Clear to auscultation bilaterally, Normal air movement Cardiovascular: Normal pulses, Regular rate/rhythm Gastrointestinal: Normal bowel sounds, Soft and benign, Non-distended, No tenderness, No masses, No rebound, No guarding Musculoskeletal: No erythema, No tenderness, No warmth Integumentary: No tenderness/swelling, No erythema, No warmth, No cyanosis Neurological: Normal speech, Normal strength at 5/5 x4 extr, Normal tone, Normal affect - Studies Medications List Reviewed: Yes Assessment & Plan Discharge Plan: Other (residential facility) Plan to discharge in: 24 Hours Physician Review Additional Text: Impression: Syncope with fall, high risk for injury Acute renal failure, resolved Status post fall in hospital Atrial fibrillation with history of pacemaker on chronic anti coagulation therapy Parkinson's disease Hypertension Hyperlipidemia Depression Urinary incontinence GERD Plan: Syncope with fall, high risk for injury: CVA ruled out. Medications adjusted. Patient continues to work with physical therapy. Patient still high risk for fall. Only walked 20 feet yesterday. Case discussed with social services technician, awaiting skilled placement approval. Will monitor closely. Fall precautions in place. Acute renal failure, resolved: This appears resolved. Patient back to baseline. Patient no longer on IV fluids. Encourage oral intake. Status post fall in hospital: Continue with physical therapy. Await skilled placement facility approval. Will monitor closely Atrial fibrillation with history of pacemaker on chronic anti coagulation therapy: Continue with medication-Xarelto 15 mg and metoprolol 100 mg daily. Parkinson's disease: Continue with medication-carbidopa/levodopa. Will monitor closely. Fall precautions in place. Hypertension: Adjustments made to medication. Continue with Norvasc 5 mg daily and metoprolol 100 mg 1 pill daily. Will monitor blood pressure closely. Will monitor and adjust. Depression: Continue with medication-Wellbutrin 100 mg daily, Seroquel 25 mg at night and Brintellix 20 mg daily. Will monitor closely. Urinary incontinence: Continue with medication-Ditropan daily. GERD: Continue with Protonix. Time Spent Managing Pts Care (In Minutes): 55
[2018-09-09] MEDS: RIVAROXABAN 15 MG TABLET PO SCH (16:55)
[2018-09-09] MEDS: ATORVASTATIN 10 MG TAB PO SCH (20:11)
[2018-09-09] MEDS: QUETIAPINE 25 MG TAB PO SCH (20:12)
[2018-09-10 05:30] LABS: Magnesium 1.9 mg/dL (1.8-2.4)
[2018-09-10] MEDS: PANTOPRAZOLE 40MG TABLET PO SCH (05:46)
[2018-09-10] MEDS: CARBIDOPA/LEVODOPA 25/100 TAB PO SCH ×3 (08:44→21:14)
[2018-09-10] MEDS: OXYBUTYNIN ER 5 MG TAB PO SCH (08:45)
[2018-09-10] MEDS: GABAPENTIN 100 MG CAP PO SCH ×2 (08:45→21:13)
[2018-09-10] MEDS: buPROPion HCl 100 MG TAB PO SCH (08:45)
[2018-09-10] MEDS: METOPROLOL XL 100 MG TAB PO SCH (08:45)
[2018-09-10] MEDS: AMLODIPINE 5 MG TAB PO SCH (08:46)
[2018-09-10] MEDS: HOME MED 1 EA UNK (Vortioxetine Hydrobromide [Trintellix] 20 MG) PO SCH (08:46)
--- NOTE | 2018-09-10 09:04 | P.PN ---
Subjective Date of Service: 09/10/18 Primary Care Provider: Dr. Ontiveros; Cardiology-Dr. Schilling; Neurology-Dr. Pratt Chief Complaint: Altered mental status /fall Subjective: Improving (Patient ambulating better.) Physical Examination - Vital Signs Temperature: 97.7 F Blood Pressure: 145/66 Pulse: 60 Respirations: 18 Pulse Ox (%): 96 - Physical Exam General: Alert, In no apparent distress, Cooperative HEENT: Atraumatic Neck: Supple Respiratory: Clear to auscultation bilaterally, Normal air movement Cardiovascular: Normal pulses, Regular rate/rhythm Gastrointestinal: Normal bowel sounds, Soft and benign, Non-distended, No masses , No rebound, No guarding Musculoskeletal: No erythema, No tenderness, No warmth Integumentary: No tenderness/swelling, No erythema, No warmth, No cyanosis Neurological: Normal speech, Normal strength at 5/5 x4 extr, Normal tone, Normal affect - Studies Medications List Reviewed: Yes Assessment & Plan Discharge Plan: Home Plan to discharge in: 48 Hours Physician Review Additional Text: Impression: Syncope with fall, high risk for injury Acute renal failure, resolved Status post fall in hospital Atrial fibrillation with history of pacemaker on chronic anti coagulation therapy Parkinson's disease Hypertension Hyperlipidemia Depression Urinary incontinence GERD Plan: Syncope with fall, high risk for injury: CVA ruled out. Patient overall stable. Patient continues to work with physical therapy. Ambulation improved. Case discussed with social problems specialist yesterday. Insurance denied patient going to a skilled facility. Therefore will continue to work with the patient until Wednesday. At that time, patient can be discharged home with home health. Will encourage patient to continue to work with physical therapy until then. Acute renal failure, resolved: This appears resolved. Patient back to baseline. Patient no longer on IV fluids. Encourage oral intake. Status post fall in hospital: Continue with physical therapy. Will plan to discharge on Wednesday with home health. Fall precautions in place. Atrial fibrillation with history of pacemaker on chronic anti coagulation therapy: Continue with medication-Xarelto 15 mg and metoprolol 100 mg daily. Parkinson's disease: Continue with medication-carbidopa/levodopa. Will monitor closely. Fall precautions in place. Hypertension: Adjustments made to medication. Continue to monitor and adjust appropriately. Will consider increase in Norvasc to 10 mg daily for better blood pressure control. Continue with Metoprolol 100 mg 1 pill daily. Will monitor blood pressure closely. Will monitor and adjust. Depression: Continue with medication-Wellbutrin 100 mg daily, Seroquel 25 mg at night and Brintellix 20 mg daily. Will monitor closely. Urinary incontinence: Continue with medication-Ditropan daily. GERD: Continue with Protonix. Time Spent Managing Pts Care (In Minutes): 55
[2018-09-10] MEDS: RIVAROXABAN 15 MG TABLET PO SCH (17:15)
[2018-09-10] MEDS: ATORVASTATIN 10 MG TAB PO SCH (21:13)
[2018-09-10] MEDS: QUETIAPINE 25 MG TAB PO SCH (21:14)
[2018-09-11] MEDS: PANTOPRAZOLE 40MG TABLET PO SCH (05:52)
[2018-09-11] MEDS: buPROPion HCl 100 MG TAB PO SCH (08:26)
[2018-09-11] MEDS: METOPROLOL XL 100 MG TAB PO SCH (08:26)
[2018-09-11] MEDS: AMLODIPINE 5 MG TAB PO SCH (08:26)
[2018-09-11] MEDS: OXYBUTYNIN ER 5 MG TAB PO SCH (08:27)
[2018-09-11] MEDS: CARBIDOPA/LEVODOPA 25/100 TAB PO SCH ×3 (08:27→20:31)
[2018-09-11] MEDS: HOME MED 1 EA UNK (Vortioxetine Hydrobromide [Trintellix] 20 MG) PO SCH (08:27)
[2018-09-11] MEDS: GABAPENTIN 100 MG CAP PO SCH ×2 (08:27→20:31)
--- NOTE | 2018-09-11 11:07 | P.PN ---
Subjective Date of Service: 09/11/18 Primary Care Provider: Dr. Ontiveros; Cardiology-Dr. Schilling; Neurology-Dr. Pratt Chief Complaint: Altered mental status /fall Subjective: Doing well Physical Examination - Vital Signs Temperature: 97.3 F Blood Pressure: 155/72 Pulse: 59 Respirations: 18 Pulse Ox (%): 99 - Physical Exam General: Alert, In no apparent distress, Cooperative HEENT: Atraumatic Neck: Supple Respiratory: Clear to auscultation bilaterally, Normal air movement Cardiovascular: Normal pulses, Regular rate/rhythm Gastrointestinal: Normal bowel sounds, Soft and benign, Non-distended, No masses , No rebound, No guarding Musculoskeletal: No erythema, No tenderness, No warmth Integumentary: No tenderness/swelling, No erythema, No warmth, No cyanosis Neurological: Normal speech, Normal strength at 5/5 x4 extr, Normal tone, Normal affect - Studies Medications List Reviewed: Yes Assessment & Plan Discharge Plan: Home (With home health and physical therapy) Plan to discharge in: 24 Hours Physician Review Additional Text: Impression: Syncope with fall, high risk for injury Acute renal failure, resolved Status post fall in hospital Atrial fibrillation with history of pacemaker on chronic anti coagulation therapy Parkinson's disease Hypertension Hyperlipidemia Depression Urinary incontinence GERD Plan: Syncope with fall, high risk for injury: CVA ruled out. Patient overall stable. Patient continues to work with physical therapy. Ambulation improved. Case discussed with director of ancillary services on Wednesday. Insurance denied patient going to a skilled facility. Therefore will continue to work with the patient until Wednesday. At that time, patient can be discharged home with home health and physical therapy. Will encourage patient to continue to work with physical therapy until then. Acute renal failure, resolved: This appears resolved. Patient back to baseline. Patient no longer on IV fluids. Encourage oral intake. Status post fall in hospital: Continue with physical therapy. Will plan to discharge on Wednesday with home health. Fall precautions in place. Atrial fibrillation with history of pacemaker on chronic anti coagulation therapy: Continue with medication-Xarelto 15 mg and metoprolol 100 mg daily. Parkinson's disease: Continue with medication-carbidopa/levodopa. Will monitor closely. Fall precautions in place. Hypertension: Adjustments made to medication. Continue to monitor and adjust appropriately. Will consider increase in Norvasc to 10 mg daily for better blood pressure control. Continue with Metoprolol 100 mg 1 pill daily. Will monitor blood pressure closely. Will monitor and adjust. Depression: Continue with medication-Wellbutrin 100 mg daily, Seroquel 25 mg at night and Brintellix 20 mg daily. Will monitor closely. Urinary incontinence: Continue with medication-Ditropan daily. GERD: Continue with Protonix. Time Spent Managing Pts Care (In Minutes): 55
[2018-09-11] MEDS: RIVAROXABAN 15 MG TABLET PO SCH (17:12)
[2018-09-11] MEDS: QUETIAPINE 25 MG TAB PO SCH (20:31)
[2018-09-11] MEDS: ATORVASTATIN 10 MG TAB PO SCH (20:31)
[2018-09-11 22:12] VITALS: O2SAT 97
[2018-09-12] MEDS: PANTOPRAZOLE 40MG TABLET PO SCH (06:09)
[2018-09-12 08:35] VITALS: TEMP 98
[2018-09-12] MEDS: buPROPion HCl 100 MG TAB PO SCH (09:00)
[2018-09-12] MEDS: OXYBUTYNIN ER 5 MG TAB PO SCH (09:00)
[2018-09-12] MEDS: GABAPENTIN 100 MG CAP PO SCH (09:00)
[2018-09-12] MEDS: HOME MED 1 EA UNK (Vortioxetine Hydrobromide [Trintellix] 20 MG) PO SCH (09:00)
[2018-09-12] MEDS: CARBIDOPA/LEVODOPA 25/100 TAB PO SCH (09:00)
[2018-09-12] MEDS: AMLODIPINE 5 MG TAB PO SCH (09:01)
--- NOTE | 2018-09-12 09:36 | P.DS ---
Admission Date: 09/02/18 Discharge Date: 09/12/18 Primary Care Provider: Dr. Ontiveros; Cardiology-Dr. Schilling; Neurology-Dr. Pratt Disposition: ROUTINE DISCHARGE Discharge Condition: GOOD Reason for Admission: Altered mental status /fall Consultations: Cardiology-Dr. Schilling Procedures: CT scan: COMPARISON: 2015 TECHNIQUE: Computed axial tomography of the head and cervical spine was obtained. Sagittal and coronal reconstruction was performed. All CT scans are performed using dose optimization technique as appropriate and may include automated exposure control or mA/KV adjustment according to patient size. FINDINGS: An intracranial bleed is not seen. The ventricles are normal in caliber. An extra-axial fluid collection is not noted. Mild low-density areas within periventricular, deep and subcortical white matter likely represent ischemic changes secondary to small vessel disease. Fluid within the visualized sinuses and mastoids is not seen A cervical fracture is not visualized. No dislocation is noted. IMPRESSION: No acute intracranial abnormality is seen. A cervical fracture is not visualized. ECHO: EF-62% LEFT VENTRICULAR WALL MOTION: NORMAL DOPPLER/COLOR FLOW: NORMAL COMMENTS: PACER IN RIGHT VENTRICULAR APEX. NORMAL LEFT VENTRICULAR SIZE AND FUNCTION. MITRAL ANNULAR CALCIFICATION. Medical Problem List: Syncope with fall, high risk for injury Acute renal failure, resolved Status post fall in hospital Atrial fibrillation with history of pacemaker on chronic anti coagulation therapy Parkinson's disease Hypertension Hyperlipidemia Depression Urinary incontinence GERD Brief History of Present Illness: 73-year-old male present emergency room with confusion after fall. Patient was seen in the hospital recently for electrical cardioversion due to atrial fibrillation. Patient with pacemaker in place. Upon arrival patient had some left-sided weakness. This improved. Mentation was also improved. Patient was admitted for further evaluation. Patient with past medical history of atrial fibrillation, Parkinson's. Hospital Course: Patient presented to the hospital after a fall. Patient with suspected syncopal episode. CVA was ruled out. Patient was hydrated due to acute renal failure. Renal function now at baseline. Patient not able to perform MRI Brain due to pacemaker. Patient is seen by neurology as an outpatient. Patient was evaluated for skilled placement. Unfortunately insurance denied placement. Patient was able to get therapy in the hospital for 3 additional days. Therefore at discharge patient will go home with home health and physical therapy. Recommendation to recheck lab-CBC, BMP in 1-2 weeks to follow up this hospitalization. Patient had a fall in the hospital. No fracture noted. Patient has worked with physical therapy. Repeat CT scan of the head unremarkable. Patient will continue with home health and physical therapy at discharge. Patient with atrial fibrillation with history of pacemaker, currently paced. Patient on chronic anti coagulation therapy. Patient seen evaluated by Cardiology. No further intervention was required. Echocardiogram unremarkable. At discharge he will continue with Xarelto 15 mg daily and metoprolol XL 100 mg daily. Recommendation is for the patient follow up with cardiology in 2-4 weeks to follow up this hospitalization. Patient has Parkinson's disease. This remained stable during his stay. Patient able to work with physical therapy appropriately. At discharge he will continue with carbidopa/levodopa 25/100 mg 2 pills 3 times a day. Patient will also continue with Neurontin 100 mg 1 pill twice daily. Recommendation is for the patient follow up with neurology in 1-2 weeks to follow up this hospitalization. Fall precautions in place. Continue with physical therapy and home health at discharge. Patient has hypertension. Medications adjusted during his stay. At discharge he will continue with Norvasc 10 mg daily and metoprolol XL 100 mg daily. Recommendation is to maintain blood pressures less 150/80. Further adjustment can be done by his PCP or cardiology. Patient has depression. Patient will continue with medication including Wellbutrin 100 mg 1 pill daily, trintellix 20 mg 1 pill daily, and Seroquel 25 mg at night. Further adjustment can be done by his PCP. Patient has hyperlipidemia. Patient will continue with Lipitor g 1 pill daily. Patient has GERD. Patient will continue with Prilosec 1 pill once daily. Patient has urinary incontinence. Patient will continue with Ditropan 15 mg at night. Vital Signs/Physical Exam: Temp Pulse Resp BP Pulse Ox 98.0 F 60 17 141/65 H 97 09/12/18 08:00 09/12/18 09:01 09/12/18 08:00 09/12/18 09:01 09/12/18 08:00 General: Alert, In no apparent distress, Oriented x3, Cooperative HEENT: Atraumatic Neck: Supple Respiratory: Clear to auscultation bilaterally, Normal air movement Cardiovascular: Normal pulses, Regular rate/rhythm Gastrointestinal: Normal bowel sounds, Soft and benign, Non-distended, No tenderness, No masses, No rebound, No guarding Musculoskeletal: No erythema, No tenderness, No warmth Integumentary: No tenderness/swelling, No erythema, No warmth, No cyanosis Neurological: Normal speech, Normal strength at 5/5 x4 extr, Normal tone, Normal affect Laboratory Data at Discharge: WBC 7.2 K/uL (4.3-10.9) D 09/05/18 10:13 Hgb 12.8 g/dL (13.6-17.9) L 09/05/18 10:13 Hct 36.9 % (39.6-49.0) L 09/05/18 10:13 Plt Count 172 K/uL (152-406) 09/05/18 10:13 Sodium 145 mmol/L (136-145) 09/10/18 04:27 Potassium 4.0 mmol/L (3.5-5.1) 09/10/18 04:27 BUN 26 mg/dL (7-18) H 09/10/18 04:27 Creatinine 1.20 mg/dL (0.55-1.3) 09/10/18 04:27 Glucose 84 mg/dL (74-106) 09/10/18 04:27 Phosphorus 3.0 mg/dL (2.5-4.9) 09/08/18 06:14 Magnesium 1.9 mg/dL (1.8-2.4) 09/10/18 04:27 Total Bilirubin 0.5 mg/dL (0.2-1.0) 09/03/18 05:11 AST 23 U/L (15-37) 09/03/18 05:11 ALT 16 U/L (12-78) 09/03/18 05:11 Alkaline Phosphatase 75 U/L (45-117) 09/03/18 05:11 Triglycerides 81 mg/dL (<150) 09/03/18 05:11 Cholesterol 160 mg/dL (<200) 09/03/18 05:11 HDL Cholesterol 62 mg/dL (40-60) H 09/03/18 05:11 Cholesterol/HDL Ratio 2.58 09/03/18 05:11 Home Medications: Atorvastatin Calcium [Lipitor*] 10 mg PO BEDTIME 09/03/18 Carbidopa/Levodopa 25-100 [Sinemet 25-100*] 2 tab PO TID 09/03/18 Metoprolol Succinate [Toprol Xl] 100 mg PO DAILY 09/03/18 Omeprazole [Prilosec] 40 mg PO DAILY 09/03/18 Oxybutynin Chloride [Oxybutynin Chloride ER] 15 mg PO DAILY 09/03/18 Pimavanserin Tartrate [Nuplazid] 2 tab PO DAILY 09/03/18 Quetiapine Fumarate [Seroquel] 25 mg PO BEDTIME 09/03/18 Vortioxetine Hydrobromide [Trintellix] 20 mg PO DAILY 09/03/18 buPROPion HCl [Bupropion HCl] 100 mg PO DAILY 09/03/18 Rivaroxaban [Xarelto*] 15 mg PO DAILY AT SUPPER #30 tablet 09/06/18 Amlodipine Besylate [Norvasc] 10 mg PO DAILY #30 tablet 09/12/18 Gabapentin [Neurontin*] 100 mg PO BID #60 cap 09/12/18 New Medications: Amlodipine Besylate [Norvasc] 10 mg PO DAILY #30 tablet Gabapentin [Neurontin*] 100 mg PO BID #60 cap Rivaroxaban [Xarelto*] 15 mg PO DAILY AT SUPPER #30 tablet Patient Discharge Instructions: 1. Patient will need to follow up with his PCP in 1-2 weeks to follow up this hospitalization. 2. Patient presented to the hospital after a fall. Patient with suspected syncopal episode. CVA was ruled out. Patient was hydrated due to acute renal failure. Renal function now at baseline. Patient not able to perform MRI Brain due to pacemaker. Patient is seen by neurology as an outpatient. Patient was evaluated for skilled placement. Unfortunately insurance denied placement. Patient was able to get therapy in the hospital for 3 additional days. Therefore at discharge patient will go home with home health and physical therapy. Recommendation to recheck lab-CBC, BMP in 1-2 weeks to follow up this hospitalization. Patient had a fall in the hospital. No fracture noted. Patient has worked with physical therapy. Repeat CT scan of the head unremarkable. Patient will continue with home health and physical therapy at discharge. 3. Patient with atrial fibrillation with history of pacemaker, currently paced. Patient on chronic anti coagulation therapy. Patient seen evaluated by Cardiology. No further intervention was required. Echocardiogram unremarkable. At discharge he will continue with Xarelto 15 mg daily and metoprolol XL 100 mg daily. Recommendation is for the patient follow up with cardiology in 2-4 weeks to follow up this hospitalization. 4. Patient has Parkinson's disease. This remained stable during his stay. Patient able to work with physical therapy appropriately. At discharge he will continue with carbidopa/levodopa 25/100 mg 2 pills 3 times a day and Nuplazid as directed. Patient will also continue with Neurontin 100 mg 1 pill twice daily. Recommendation is for the patient follow up with neurology in 1-2 weeks to follow up this hospitalization. Fall precautions in place. Continue with physical therapy and home health at discharge. 5. Patient has hypertension. Medications adjusted during his stay. At discharge he will continue with Norvasc 10 mg daily and metoprolol XL 100 mg daily. Recommendation is to maintain blood pressures less 150/80. Further adjustment can be done by his PCP or cardiology. 6. Patient has depression. Patient will continue with medication including Wellbutrin 100 mg 1 pill daily, Trintellix 20 mg 1 pill daily, and Seroquel 25 mg at night. Further adjustment can be done by his PCP. 7. Patient has hyperlipidemia. Patient will continue with Lipitor g 1 pill daily. 8. Patient has GERD. Patient will continue with Prilosec 40 mg 1 pill once daily. 9. Patient has urinary incontinence. Patient will continue with Ditropan 15 mg at night. Diet: AHA Activity: Fall precautions Followup: Mil Schilling MD [ACTIVE - CAN ADMIT] - Mayur Pratt MD [ASSOCIATE-ACTIVE - CAN ADMIT] - Time spent managing pt's care (in minutes): 55
[2018-09-12] MEDS: METOPROLOL XL 100 MG TAB PO SCH (10:25)
[2018-09-12 10:26] VITALS: BP 119/80
== END 2018-09-12 12:06 | disposition home health service (06) | DRG 684 ==
LOC: ER 20:49 → ERHOLD 23:19 → 2ND 09-03 00:17
PROVIDERS: ADMIT Hospitalist; ATTEND Family Medicine
DX: N17.9 Acute kidney failure, unspecified (principal); Z95.0 Presence of cardiac pacemaker; G20 Parkinson's disease; I10 Essential (primary) hypertension; F32.9 Major depressive disorder, single episode, unspecified; E78.5 Hyperlipidemia, unspecified; K21.9 Gastro-esophageal reflux disease without esophagitis; R32 Unspecified urinary incontinence; I48.91 Unspecified atrial fibrillation; Z79.01 Long term (current) use of anticoagulants; F41.9 Anxiety disorder, unspecified; Z87.891 Personal history of nicotine dependence; I48.0 Paroxysmal atrial fibrillation; I95.1 Orthostatic hypotension; E86.0 Dehydration; W01.0XXA Fall on same level from slipping, tripping and stumbling without subsequent striking against object, initial encounter; Z91.81 History of falling; Y93.01 Activity, walking, marching and hiking; Y92.230 Patient room in hospital as the place of occurrence of the external cause
CPT/HCPCS: 36415; 70450; 71046; 72125; 80048; 80053; 80061; 81003; 83735; 84100; 85025; 93005; 93306; 97163; 99285; J0360; J3475; J7030

== ENCOUNTER 2018-09-14 12:28 | Emergency (ER) | payer OTHER ==
--- OUTSIDE RECORDS SUMMARY | 2018-09-14 12:31 | XMS REPORT ---
:1945 Author Organization [employer] Care Team Providers Name Role Phone Param [place] Provider Role Unavailable Allergies, Adverse Reactions, Alerts Substance Reaction Event Type N.K.D.A. Info Not Available Non Drug Allergy Encounters Encounter Location Date Needs referral [facility] Jul 12, 2015 Needs referral [facility] Aug 01, 2015 Needs referral [facility] Jul 31, 2015 ED medication [facility] Sep 05, 2015 h & p [facility] May 03, 2015 Needs referral [facility] May 21, 2015 Unknown [facility] June 06, 2015 Refill [facility] Sep 24, 2015 needing anixty medication [facility] Dec 17, 2015 Problems Problem Type Condition ICD-9 Code Onset Dates Condition Status Assessment Situational anxiety F41.8 Active Medications Medication Code System Code Instructions Start End Status Dosage Date Date Azilect MEDISPAN 85937-1 1 MG Orally Active 1 tablet 206-00 Once a day Oxybutynin MEDISPAN 87121-3 3.9 MG/24HR Active 1 patch to 322-02 Transdermal skin Metoprolol MEDISPAN 26674-3 25 MG Orally Active 1 tablet Succinate ER 281-01 Once a day Gabapentin MEDISPAN 27564-9 100 mg Orally Active 1 tablet 992-01 twice a day (bid) Carbidopa-Levodopa MEDISPAN 07222-2 25-100 MG Active 1 tablet ER 922-01 Orally every 6 every 6 hrs hours while awake Lovastatin MEDISPAN 43403-5 20 MG Orally Active 1 tablet 576-06 Once a day with a meal Digoxin MEDISPAN 49779-4 250 MCG Orally Active 1 tablet 822-01 Once a day Furosemide MEDISPAN 00593-7 20 MG Orally Active 1 tablet 297-25 Once a day Vitamin B Complex MEDISPAN 01718-4 Orally Active Unknown 5540 Pramipexole MEDISPAN 04952-7 0.75 MG Orally Active 1 tablet Dihydrochloride 019-98 Once a day before bedtime Xanax MEDISPAN 91977-1 0.5 MG Orally Dec 17, 1 tablet 055-01 Three times a 2016 day PRN Ketoconazole MEDISPAN 65726-3 2 % Externally Active Unknown 090-04 Eliquis MEDISPAN 24018-3 5 MG Orally Active 1 capsule 894-21 twice a day (bid) Folic Acid MEDISPAN 72686-0 1 MG Orally Active 1 tablet 507-19 three times a day (tid) Fluconazole MEDISPAN 03415-8 200 MG Orally Active 1 tablet 413-00 Once a week Quetiapine Fumarate MEDISPAN 32854-3 25 MG Orally Active 1 tablet 220-20 [...]
--- OUTSIDE RECORDS SUMMARY | 2018-09-14 12:31 | XMS REPORT ---
:1945 Author Organization [employer] Care Team Providers Name Role Phone GeorgetteParam lepe Provider Role Unavailable Encounters Encounter Location Date h & p [facility] May 03, 2015 Needs referral [facility] May 21, 2015 Social History Social History [...]
--- OUTSIDE RECORDS SUMMARY | 2018-09-14 12:31 | XMS REPORT ---
:1945 Author Organization [employer] Care Team Providers Name Role Phone Param [place] Provider Role Unavailable Encounters Encounter Location Date Needs referral [facility] Jul 12, 2015 h & p [facility] May 03, 2015 Needs referral [facility] May 21, 2015 Unknown [facility] June 06, 2015 Social [...]
--- OUTSIDE RECORDS SUMMARY | 2018-09-14 12:31 | XMS REPORT ---
:1945 Author Organization [employer] Care Team Providers Name Role Phone Param [place] Provider Role Unavailable Encounters Encounter Location Date h & p [facility] May 03, 2015 Needs referral [facility] May 21, 2015 Unknown [facility] June 06, 2015 Social History Social [...]
--- OUTSIDE RECORDS SUMMARY | 2018-09-14 12:31 | XMS REPORT | Continuity of Care Document ---
:1945 Author Organization Interface Problems Problem Status Onset Classification Date Comments Source Date Reported TRAUMATIC Active [facility] SUBARACHNOID [address] [place] [address] Center CARMEN Active [facility] BILLING [address] [place] [address] LIFE FLIGHT # Active [place] [id number] [address] [place] [address] Situational Active Diagnosis 12/25/2015 [facility] TRAUM SUBRAC HEM Active [facility] W/O [facility] Medications Medication Details Route Status Patient [...] EXAM: XR CHEST 1 VIEW 06/14 - [facility] 1view DX 1view DX /2015 - [facility] [...] EXAM: CT BRAIN WITHOUT CONTRAST 06/14 - [facility] contrast contrast /2015 - Medical CT CT This report was dictated by a Courtroom Reporter/Fellow. I have personally reviewed the images as [...] were discussed by the Emergency Room resident air defense control officer with Dr. Kwon in the Neuro ICU at 0310 hours on 06/14/16 Brain-Out Brain-Out EXAM: CT CERVICAL SPINE WITHOUT CONTRAST 06/13 [facility] /2015 - Medical Consult Consult This report was dictated by a Courtroom Reporter/ Fellow. I have personally reviewed the images as Center CT CT well as the Resident's interpretation and agree with the findings. DATE: 06/13/2016 9:10 PM CDT Read by: Tristen Fields MD Resident: Tristen Fields MD Dictated Date/time: 06/14/16 03:34 Electronically Signed by: Mt Yousif 06/14/16 07:44 FINAL REPORT INDICATION: Trauma. Outside hospital exam submitted for 2nd interpretation. COMPARISON: None TECHNIQUE: Study performed at [facility] on 2015 at 1736 hours. Volumetric [...] Date Visit [facility] [id number] 05/03 05/03 [facility] [id number]-[id number] [id number] [facility] 4k027j [facility] 8k5bg2os-1 05/03 05/03 [facility] [id number]-[id number] /2014 [facility] [id number] [facility]oc 886a03 [facility] [id number] 05/03 05/03 [facility] 9a4-9p7u-k /2014 [facility] 0h0-oobg37 [facility]oc eb65a0 [facility] [id number] 05/03 05/03 [facility] 5aa-[id number] /2014 [facility] fce-db34da [facility]oc b435be [facility] m51y75tp-m 05/03 05/03 [facility] 260-498a-a /2014 [facility] [id number] Assoc 452c61 [facility] 39k18opv-5 05/03 05/03 [facility] [id number]-b /2014 [facility] 2ed-5a0cba [facility] 8debb2 [facility] 357z7gq6-8 05/03 05/03 [facility] 5bf-4fd5-a /2014 [facility] 91e-ef78b9 [facility]oc 819da7 [facility] [id number] 05/03 05/03 [facility] 3p3-2138-q /2014 [facility] 9i8-96e5v1 [facility]oc 8536a5 [facility] [id number] 05/03 05/03 [facility] [id number] /2014 [facility] b0c-103z51 [facility]oc 59e9eb [facility] 40z4l385-1 05/21 05/21 [facility] 03d-4f6a-a /2014 [facility] 6de-d4f76e [facility]oc abb04e [facility] [id number]-d 05/21 05/21 [facility] z2r-3895-9 /2014 [facility] [id number]-hg931z Assoc 2c4b5c [facility] 27410z50-o 05/21 05/21 [facility] 716-434e-9 /2014 [facility] [id number] Assoc c07d46 [facility] 1r5r5ap8-2 05/21 05/21 [facility] y15-605z-5 /2014 [facility] 1x1-bu06ir Assoc 97i533 [facility] krz061r7-w 05/21 05/21 [facility] q2i-2k70-7 /2014 [facility] 3i1-6kkpy1 [facility]oc 8afcd8 [facility] 6m3r589w-1 05/21 05/21 [facility] g22-5581-y /2014 [facility] [id number] Assoc 063588 [facility] z4g3w93k-w 05/21 05/21 [facility] 065-4170-a /2014 [facility] 86b-4fdbee Assoc 27563q [facility] 6107941z-3 05/21 05/21 [facility] t0n-7h1k-q /2014 [facility] h0v-szgr27 Assoc f8s774 [facility] k1p8x563-1 05/21 05/21 [facility] 179-4a57-9 /2014 [facility] [id number] Assoc 41302v [facility] [id number] 06/06 06/06 [facility] 24b-4ba7-a /2014 [facility] [id number] [facility]oc 6e0fb9 [facility] [id number] 06/06 06/06 [facility] 640-44a0-9 /2014 [facility] m68-9sa1w9 [facility]oc a3cb59 [facility] [id number] 06/06 06/06 [facility] a67-92a6-5 /2014 [facility] 89e-ob546r [facility] b8d72e [facility] [id number]-r 06/06 06/06 [facility] f4a-00z6-5 /2014 [facility] 6n2-ici8j0 Assoc f53748 [facility] [id number] 06/06 06/06 [facility] 24b-4a5e-9 /2014 [facility] g15-bfyz79 [facility]oc 4ddfcc [facility] [id number] 06/06 06/06 [facility] 7bf-45e1-9 /2014 [facility] 39f-89fd01 Assoc bbfa1e [facility] [id number] 06/06 06/06 [facility] 5fb-4756-b /2014 [facility] 1db-d1b5ab [facility] 3bcdb8 [facility] [id number] 06/06 06/06 [facility] 809-43b2-8 /2014 [facility] dc4-34ae67 [facility]oc 2b6f07 [facility] 247rdqf0-1 07/12 07/12 [facility] w8v-061s-r /2014 [facility] 7ab-bbdc61 Assoc 755579 [facility] [id number]-9 07/12 07/12 [facility] 0ab-4b39-a /2014 [facility] v1z-58j3p8 [facility]oc 6c8c38 [facility] sb2o15rj-e 07/12 07/12 [facility] 71b-41fc-a /2014 [facility] 96b-yb6234 Assoc 4e8ae3 [facility] 11s10704-6 07/12 07/12 [facility] 0cf-45a7-8 /2014 [facility] [id number] Assoc 1ea28b [facility] rvi8z8n5-1 07/12 07/12 [facility] o30-93e1-8 /2014 [facility] c79-0e534t Assoc i46835 [facility] 7187x33l-0 07/12 07/12 [facility] 8x3-282f-2 /2014 [facility] 2cd-ff6acf Assoc ca2e00 [facility] 6706438y-7 07/12 07/12 [facility] t15-3mpj-3 /2014 [facility] 625-bc5af7 Assoc 959d3e [facility] j20t42bb-q 07/31 07/31 [facility] 0n0-2q05-w /2014 [facility] 172-9e2cb5 Assoc 7e5c43 [facility] p90r8j4e-c 07/31 07/31 [facility] 87f-464b-a /2014 [facility] 98f-k0341l Assoc 30d29c [facility] 5038d4yq-1 07/31 07/31 [facility] 1eb-47aa-a /2014 [facility] 07b-f0fab1 Assoc 513991 [facility] 3y6998h4-7 07/31 07/31 [facility] 176-4850-9 /2014 [facility] y7x-k62vw9 [facility]oc 049e22 [facility] it61lvif-3 07/31 07/31 [facility] 056-490e-a /2014 [facility] [id number]-u73159 Assoc d12e22 [facility] 77ax8539-4 07/31 07/31 [facility] fb1-4928-a /2014 [facility] o14-f19b3a Assoc ba1a8e [facility] 4u30bzi1-9 08/01 08/01 [facility] 92e-4fbb-b /2014 [facility] 4x8-96lxj5 Assoc 636d26 [facility] 48t37q5c-b 08/01 08/01 [facility] 1cd-402e-8 /2014 [facility] 5p4-0dvm6f Assoc 190428 [facility] 2m9r2kgl-0 08/01 08/01 [facility] w58-14yq-f /2014 [facility] marilu-y5234d [facility]oc 75cd71 [facility] ug7e9843-9 08/01 08/01 [facility] be9-459a-a /2014 [facility] k0s-y32wvc [facility] 7edd38 [facility] 4y281uq1-4 08/01 08/01 [facility] 2bc-4e41-9 /2014 [facility] 828-ppu760 Assoc sh1025 [facility] 33998177-7 08/01 08/01 [facility] 0x6-1256-1 /2014 [facility] dda-1305e4 Assoc 2f740l [facility] 53fdfaed-2 09/05 09/05 [facility] medication 58b-4008-8 /2014 [facility] 14e-3264b3 Assoc 1f898s [facility] 8kk5l218-0 09/05 09/05 [facility] medication 361-4382-b /2014 [facility] n39-i663y8 Assoc 0996b1 [facility] nzrf71x2-7 09/05 09/05 [facility] medication ed9-4680-b /2014 [facility] 03b-a7f2b3 Assoc 9982ed [facility] 60e4xe43-o 09/05 09/05 [facility] medication 100-4789-8 /2014 [facility] ca7-ad2fb4 Assoc 49ff4c [facility] k779z48k-l 09/05 09/05 [facility] medication 9dc-4016-8 /2014 [facility] 7aa-a0ae25 Assoc ab431g [facility] 2ku80314-3 09/05 09/05 [facility] medication v9z-7mrl-3 /2014 [facility] df1-fb6d51 Assoc 8lk273 [facility] 792b347x-9 09/24 09/24 [facility] ee1-4a87-9 /2014 [facility] 430-h48885 Assoc a0x291 [facility] 1793s35u-7 09/24 09/24 [facility] fd3-4697-8 /2014 [facility] [id number] Assoc 685720 [facility] 5t7cojqs-0 09/24 09/24 [facility] p71-06v7-7 /2014 [facility] 0l1-68e384 Assoc g2969i [facility] w3b7ne30-9 09/24 09/24 [facility] 31f-471b-9 /2014 [facility] ad0-17da47 Assoc f8b5ae [facility] o9235f54-5 09/24 09/24 [facility] 579-4600-a /2014 [facility] 146-891da0 Assoc 051860 [facility] needing 8953d01u-b 12/17 12/17 [facility] anixty b8f-8350-5 /2015 [facility] medication 75e-210993 Assoc f1f82e [facility] [id number]-b 12/17 12/17 [facility] anixty 3bc-48eb-8 /2015 [facility] medication 0v1-tri8y4 Assoc 281d3e [facility] 9dgmt4o9-9 12/17 12/17 [facility] anixty 186-4ed9-9 /2015 [facility] medication w1o-p57z36 Assoc 23f3c9 [facility] 6v7cu6un-1 12/17 12/17 [facility] anixty 6p0-0793-8 /2015 [facility] medication 576-7mx879 Assoc 4b5ff3 [facility] 5lomcm5e-1 [facility] 37e-44a7-9 /2015 [facility] w05-71zm10 Assoc 92986c [facility] 347227ix-k [facility] saray-4c15-a /2015 [facility] [id number]-db5354 Assoc 0dbd37 [facility] awnn9k48-t [facility] 166-4f13-a /2015 [facility] 4bf-0910be Assoc 144637 [facility] 97e8m88t-m [facility] Advice 49c-4769-a /2015 [facility] During amy-0e1db8 Assoc Business ce1e48 Hours [facility] 7a90id3x-4 [facility] Advice 489-4710-b /2015 [facility] During annalise-c60acc Assoc Business cbcc3f Hours [facility] z0ad461l-8 01/09 01/09 [facility] 3v5-01f7-n /2015 [facility] 1e3-hx8g00 Assoc [id number] Procedures Procedure Code Date Perfomer Comments Source
--- OUTSIDE RECORDS SUMMARY | 2018-09-14 12:32 | XMS REPORT ---
:1945 Author Organization [employer] Care Team Providers Name Role Phone Param [place] Provider Role Unavailable Encounters Encounter Location Date Needs referral [facility] Jul 12, 2015 Needs referral [facility] Aug 01, 2015 Needs referral [facility] Jul 31, 2015 ED medication [facility] Sep 05, 2015 h & p [facility] May 03, 2015 Needs referral [facility] May 21, 2015 Unknown [facility] June 06, 2015 Medications Medication Code System Code Instructions Start Date End Date Status Dosage Viagra MEDISPAN [id number] 50 MG Orally Once Sep 09, Oct [...]
--- OUTSIDE RECORDS SUMMARY | 2018-09-14 12:32 | XMS REPORT ---
:1945 Author Organization [employer] Care Team Providers Name Role Phone Param [place] Provider Role Unavailable Encounters Encounter Location Date Needs referral [facility] Jul 12, [address] [facility] Aug 01, [address] [facility] Jul 31, [address] [facility] Sep 05, 2015 h & [address] [facility] May 03, 2015 Clinical Advice During Business Hours [facility] Dec Needs referral [facility] May 21, [address] [facility] January 10, [address] [facility] June 06, [address] [facility] Jan 06, [address] [facility] Sep 24, [address] [facility] Dec 17, 2015 Medications Medication Code System Code Instructions Start Date End Date Status Dosage Xanax MEDISPAN [id number] 0.5 MG Orally Dec 17, Active 1 [...]
--- OUTSIDE RECORDS SUMMARY | 2018-09-14 12:32 | XMS REPORT ---
:1945 Author Organization [employer] Care Team Providers Name Role Phone Param [place] Provider Role Unavailable Encounters Encounter Location Date Needs referral [facility] Jul 12, 2015 Needs referral [facility] Aug 01, 2015 Needs referral [facility] Jul 31, 2015 ED medication [facility] Sep 05, 2015 h & p [facility] May 03, 2015 Needs referral [facility] May 21, 2015 Unknown [facility] June 06, 2015 Refill [facility] Sep 24, 2015 Social History [...]
--- OUTSIDE RECORDS SUMMARY | 2018-09-14 12:32 | XMS REPORT ---
:1945 Author Organization [employer] Care Team Providers Name Role Phone Param [place] Provider Role Unavailable Encounters Encounter Location Date Needs referral [facility] Jul 12, 2015 Needs referral [facility] Aug 01, 2015 Needs referral [facility] Jul 31, 2015 ED medication [facility] Sep 05, 2015 h & p [facility] May 03, 2015 Needs referral [facility] May 21, 2015 Unknown [facility] June 06, 2015 Refill [facility] Jan 06, 2016 Refill [facility] Sep 24, 2015 [...]
--- OUTSIDE RECORDS SUMMARY | 2018-09-14 12:32 | XMS REPORT ---
:1945 Author Organization [employer] Care Team Providers Name Role Phone Param [place] Provider Role Unavailable Encounters Encounter Location Date Needs referral [facility] Jul 12, 2015 Needs referral [facility] Aug 01, 2015 Needs referral [facility] Jul 31, 2015 ED medication [facility] Sep 05, 2015 h & p [facility] May 03, 2015 Clinical Advice During Business Hours [facility] Dec Needs referral [facility] May 21, 2015 Unknown [facility] June 06, 2015 Refill [facility] Jan 06, 2016 Refill [facility] Sep 24, 2015 needing anixty medication [facility] Dec 17, 2015 Social History [...]
--- NOTE | 2018-09-14 13:04 | RAD REPORT ---
EXAM DESCRIPTION: CT - Head Brain Wo Cont - 09/14/2018 12:51 pm CLINICAL HISTORY: Head injury status post fall COMPARISON: August 2018 TECHNIQUE: Computed axial tomography of the head was obtained. IV contrast was not requested. All CT scans are performed using dose optimization technique as appropriate and may include automated exposure control or mA/KV adjustment according to patient size. FINDINGS: An intracranial bleed is not seen . The ventricles are normal in caliber. No extra-axial fluid collection is noted. Mild low-density areas are present in periventricular, deep and subcortical white matter likely representing ischemic changes secondary to small vessel disease Fluid within the sinuses/ mastoids is not seen. IMPRESSION: No acute intracranial abnormality is seen. If patient's symptoms persist MRI of the bra in would be recommended.
--- NOTE | 2018-09-14 14:10 | RAD REPORT ---
EXAM DESCRIPTION: RAD - Pelvis - 09/14/2018 2:01 pm CLINICAL HISTORY: Fall, pelvic pain COMPARISON: Pelvis March 2016 TECHNIQUE: AP imaging of the pelvis was obtained. FINDINGS: Lower lumbar degenerative changes are present only partially assessed on a pelvis exam. No gross interval change. Mild SI joint degenerative change also without new finding. No fracture of the pelvis. No sacral ala abnormality seen. Bilateral hip joint degenerative changes a re present relatively mild. Pattern is similar to 2016. No proximal femur acute finding. No suspicious soft tissue finding. IMPRESSION: Degenerative changes are present as detailed. No fracture or acute finding.
--- NOTE | 2018-09-14 14:15 | ER ---
Nurse's Notes [facility] Name: Kevin Barajas Age: 73 yrs Sex: Male : 1945 Arrival Date: 09/14/2018 Time: 12:30 Bed 14 Private MD: Diagnosis: Superficial injury of head Presentation: 09/14 12:31 Presenting complaint: EMS states: Feet gave out while standing in bathroom, fell to buttocks then landed backwards and hit head on wall . Denies injury/pain. Negative LOC. Care prior to arrival: None. Mechanism of Injury: Fall from standing position. Trauma event details: Injury occurred in the [facility], Injury occurred: at home. Injury occurred: September 14, 2018. 12:31 Acuity: KHLOE 3 hb 12:31 Method Of Arrival: EMS: [facility] 12:42 Transition of care: patient was not received from another setting of care. Onset of hb symptoms was September 14, 2018. Risk Assessment: Do you want to hurt yourself or someone else? Patient reports no desire to harm self or others. Initial Sepsis Screen: Does the patient meet any 2 criteria? No. Patient's initial sepsis screen is negative. Does the patient have a suspected source of infection? No. Patient's initial sepsis screen is negative. Trauma Activation: Not Applicable Physician: ED Physician; Name: ; Notified At: ; Arrived At: Physician: General Surgeon; Name: ; Notified At: ; Arrived At: Physician: Radiology; Name: ; Notified At: ; Arrived At: Physician: Respiratory; Name: ; Notified At: ; Arrived At: Physician: Lab; Name: ; Notified At: ; Arrived At: Historical: - Allergies: 12:39 No Known Allergies; hb - Home Meds: 12:39 atorvastatin Oral [Active]; bupropion HCl 50 mg Oral tab nightly [Active]; hb carbidopa-levodopa 25-100 mg Oral TbER 2 tabs 3 times per day [Active]; omeprazole 40 mg Oral cpDR 1 cap once daily [Active]; Trintellix 20 mg Oral tab once daily [Active]; - PMHx: 12:39 Depression; Atrial Fib; Hypertension; Pacemaker; Parkinsons; hb - PSHx: 12:39 pacemaker implantation; hb - Immunization history: Last tetanus immunization: - up to date. - Social history:: Smoking status: Patient/guardian denies using tobacco. - Ebola Screening: : No symptoms or risks identified at this time. - Family history:: not pertinent. - Hospitalizations: : The patient was recently seen at [facility]. Screenin:37 Abuse screen: Denies threats or abuse. Denies injuries from another. Tuberculosis hb screening: No symptoms or risk factors identified. 12:45 Fall Risk Total Naidu Fall Scale indicates High Risk Score (45 or more points). Fall hb prevention measures have been instituted. Side Rails Up X 2 Frequent Obs/Assessments Occuring As available patient and family educated on Fall Prevention Program and Strategies. 12:45 Nutritional screening: No deficits noted. hb Primary Survey: 12:37 A: Airway: patent. Breathing/Chest: Respiratory pattern: regular, Respiratory effort: hb spontaneous, unlabored, Breath sounds: clear, bilaterally. Chest inspection: symmetrical rise and fall of the chest. Circulation: Pulses: palpable . Skin color: pink, Skin temperature: warm, dry. Disability Alert. 13:30 Reassessment Airway Airway Patent Breathing/Chest Respiratory pattern Regular hb Respiratory effort Spontaneous Unlabored Chest inspection Symmetrical Circulation Color [place] Temperature Warm Dry Disability Alert. 14:30 Reassessment Airway Airway Patent Breathing/Chest Respiratory pattern Regular hb Respiratory effort Spontaneous Unlabored Circulation Color [place] Disability Alert. 15:30 Reassessment Airway Airway Patent Breathing/Chest Respiratory pattern Regular hb Respiratory effort Spontaneous Unlabored Chest inspection Symmetrical Circulation Color [place] Temperature Warm Dry Disability Alert. Secondary Survey: 12:45 HEENT: No deficits noted. Gastrointestinal: No deficits noted. : No deficits noted. hb Musculoskeletal: No deficits noted. Assessment: 12:39 General: Appears in no apparent distress. Behavior is calm, cooperative. Pain: Denies hb pain. Neuro: Level of Consciousness is awake, alert, obeys commands, Oriented to person, place, time, situation. EENT: No signs and/or symptoms were reported regarding the EENT system. Cardiovascular: Heart tones S1 S2 present Capillary refill < 3 seconds Patient's skin is warm and dry. Respiratory: No deficits noted. GI: No signs and/or symptoms were reported involving the gastrointestinal system. : No signs and/or symptoms were reported regarding the genitourinary system. Derm: No signs and/or symptoms reported regarding the dermatologic system. Musculoskeletal: No signs and/or symptoms reported regarding the musculoskeletal system. 13:30 Reassessment: Patient appears in no apparent distress at this time. No changes from hb previously documented assessment. Patient and/or family updated on plan of care and expected duration. Pain level reassessed. Patient is alert, oriented x 3, equal unlabored respirations, skin warm/dry/pink. 14:30 Reassessment: Patient appears in no apparent distress at this time. No changes from hb previously documented assessment. Patient and/or family updated on plan of care and expected duration. Pain level reassessed. Patient is alert, oriented x 3, equal unlabored respirations, skin warm/dry/pink. 14:42 Reassessment: Discharge ordered, awaiting transportation at this time. hb Vital Signs: 12:31 BP 127 / 76; Pulse 60; Resp 15; Temp 97.9; Pulse Ox 99% on R/A; Pain 0/10; hb 13:30 BP 144 / 60; Pulse 62; Resp 16; Pulse Ox 100% on R/A; Pain 0/10; hb 14:30 BP 146 / 67; Pulse 67; Resp 15; Pulse Ox 100% on R/A; Pain 0/10; hb 15:30 BP 142 / 66; Pulse 66; Resp 16; Pulse Ox 100% on R/A; Pain 0/10; hb Norton Coma Score: 12:31 Eye Response: spontaneous(4). Verbal Response: oriented(5). Motor Response: obeys hb commands(6). Total: 15. Trauma Score (Adult): 12:31 Eye Response: spontaneous(1); Verbal Response: oriented(1); Motor Response: obeys hb commands(2); Systolic BP: > 89 mm Hg(4); Respiratory Rate: 10 to 29 per min(4); Norton Score: 15; Trauma Score: 12 13:30 Eye Response: spontaneous(1); Verbal Response: oriented(1); Motor Response: obeys hb commands(2); Systolic BP: > 89 mm Hg(4); Respiratory Rate: 10 to 29 per min(4); Miladis Score: 15; Trauma Score: 12 14:30 Eye Response: spontaneous(1); Verbal Response: oriented(1); Motor Response: obeys hb commands(2); Systolic BP: > 89 mm Hg(4); Respiratory Rate: 10 to 29 per min(4); Norton Score: 15; Trauma Score: 12 15:30 Eye Response: spontaneous(1); Verbal Response: oriented(1); Motor Response: obeys hb commands(2); Systolic BP: > 89 mm Hg(4); Respiratory Rate: 10 to 29 per min(4); Norton Score: 15; Trauma Score: 12 ED Course: 12:30 Patient arrived in ED. hb 12:36 Triage completed. hb 12:36 Almas Nunez MD is Attending Physician. rn 12:37 Arm band placed on right wrist. hb 12:40 Patient maintains SpO2 saturation greater than 95% on room air. Thermoregulation: warm hb blanket given to patient. 12:43 Patient has correct armband on for positive identification. Bed in low position. Call hb light in reach. Side rails up X2. 12:50 CT Head Brain wo Cont In Process Unspecified. EDMS 13:59 X-ray completed. Portable x-ray completed in exam room. Patient tolerated procedure ml well. 14:01 Dagmar Estrada, RN is Primary Nurse. hb 14:01 XRAY Pelvis In Process Unspecified. EDMS 14:41 No provider procedures requiring assistance completed. Patient did not have IV access hb during this emergency room visit. Administered Medications: No medications were administered Intake: 14:43 PO: 0ml; Total: 0ml. hb Output: 14:43 Urine: 0ml; Total: 0ml. hb Outcome: 14:14 Discharge ordered by . rn 14:43 Discharged to home via wheelchair, with family. hb 14:43 Condition: stable 14:43 Discharge instructions given to patient, Instructed on discharge instructions, follow up and referral plans. medication usage, Demonstrated understanding of instructions, follow-up care, medications. 14:44 Patient's length of stay in the Emergency Department was greater than 2 hours. awaiting hb transportationPatient's length of stay extended due to 15:48 Patient left the ED. ss Signatures: Dispatcher [employer] Trudy Muller Roman, MD MD rn Smirch, Shelby, RN RN Dagmar Estrada RN RN hb Corrections: (The following items were deleted from the chart) 12:42 12:39 Home Meds: Eliquis 5 mg Oral tab 1 tab daily; hb hb
--- NOTE | 2018-09-14 14:15 | EDPHYS ---
Physician Documentation [facility] Name: Kevin Barajas Age: 73 yrs Sex: Male : 1945 Arrival Date: 09/14/2018 Time: 12:30 Bed 14 Private MD: ED Physician Almas Nunez HPI: 09/14 13:52 This 73 yrs old Male presents to ER via EMS with complaints of Fall Injury. rn 13:52 Details of fall: The patient fell from an upright position. Onset: The symptoms/episode rn began/occurred just prior to arrival. Associated injuries: The patient sustained injury to the head. Severity of symptoms: At their worst the symptoms were very mild, in the emergency department the symptoms have improved. The patient has experienced similar episodes in the past. REports has frequent falls, recently seen here and admitted, has appt with neurology for placement in a facility, today went to bathroom, legs got weak again, fell, hit head on wall, no LOC, no longer on blood thinner, states fell onto his butt, took a while to get up, but denies current pain.. Historical: - Allergies: 12:39 No Known Allergies; hb - Home Meds: 12:39 atorvastatin Oral [Active]; bupropion HCl 50 mg Oral tab nightly [Active]; hb carbidopa-levodopa 25-100 mg Oral TbER 2 tabs 3 times per day [Active]; omeprazole 40 mg Oral cpDR 1 cap once daily [Active]; Trintellix 20 mg Oral tab once daily [Active]; - PMHx: 12:39 Depression; Atrial Fib; Hypertension; Pacemaker; Parkinsons; hb - PSHx: 12:39 pacemaker implantation; hb - Immunization history: Last tetanus immunization: - up to date. - Social history:: Smoking status: Patient/guardian denies using tobacco. - Ebola Screening: : No symptoms or risks identified at this time. - Family history:: not pertinent. - Hospitalizations: : The patient was recently seen at [facility]. ROS: 13:52 Constitutional: Negative for fever, chills, and weight loss, Eyes: Negative for injury, rn pain, redness, and discharge, Neck: Negative for injury, pain, and swelling, Cardiovascular: Negative for chest pain, palpitations, and edema, Respiratory: Negative for shortness of breath, cough, wheezing, and pleuritic chest pain, Abdomen/GI: Negative for abdominal pain, nausea, vomiting, diarrhea, and constipation, MS/Extremity: Negative for injury and deformity, Skin: Negative for injury, rash, and discoloration, Neuro: Negative for headache, numbness, tingling, and seizure. Exam: 13:52 Constitutional: This is a well developed, well nourished patient who is awake, alert, rn and in no acute distress. Head/Face: Normocephalic, atraumatic. Eyes: Pupils equal round and reactive to light, extra-ocular motions intact. Lids and lashes normal. Conjunctiva and sclera are non-icteric and not injected. Cornea within normal limits. Periorbital areas with no swelling, redness, or edema. Neck: Trachea midline, no thyromegaly or masses palpated, and no cervical lymphadenopathy. Supple, full range of motion without nuchal rigidity, or vertebral point tenderness. No Meningismus. Cardiovascular: Irregular rhythm, no murmur Respiratory: Lungs have equal breath sounds bilaterally, clear to auscultation. No increased work of breathing, no retractions or nasal flaring. Abdomen/GI: soft, non-tender Back: No spinal tenderness MS/ Extremity: Pulses equal, no cyanosis. Neurovascular intact. Full, normal range of motion. Equal circumference. Neuro: Awake and alert, GCS 15, oriented to person, place, and situation. Cranial nerves II-XII grossly intact. Motor strength 5/5 in all extremities. Sensory grossly intact. Vital Signs: 12:31 BP 127 / 76; Pulse 60; Resp 15; Temp 97.9; Pulse Ox 99% on R/A; Pain 0/10; hb 13:30 BP 144 / 60; Pulse 62; Resp 16; Pulse Ox 100% on R/A; Pain 0/10; hb 14:30 BP 146 / 67; Pulse 67; Resp 15; Pulse Ox 100% on R/A; Pain 0/10; hb 15:30 BP 142 / 66; Pulse 66; Resp 16; Pulse Ox 100% on R/A; Pain 0/10; hb Miladis Coma Score: 12:31 Eye Response: spontaneous(4). Verbal Response: oriented(5). Motor Response: obeys hb commands(6). Total: 15. Trauma Score (Adult): 12:31 Eye Response: spontaneous(1); Verbal Response: oriented(1); Motor Response: obeys hb commands(2); Systolic BP: > 89 mm Hg(4); Respiratory Rate: 10 to 29 per min(4); Miladis Score: 15; Trauma Score: 12 13:30 Eye Response: spontaneous(1); Verbal Response: oriented(1); Motor Response: obeys hb commands(2); Systolic BP: > 89 mm Hg(4); Respiratory Rate: 10 to 29 per min(4); Miladis Score: 15; Trauma Score: 12 14:30 Eye Response: spontaneous(1); Verbal Response: oriented(1); Motor Response: obeys hb commands(2); Systolic BP: > 89 mm Hg(4); Respiratory Rate: 10 to 29 per min(4); Miladis Score: 15; Trauma Score: 12 15:30 Eye Response: spontaneous(1); Verbal Response: oriented(1); Motor Response: obeys hb commands(2); Systolic BP: > 89 mm Hg(4); Respiratory Rate: 10 to 29 per min(4); Morgan Score: 15; Trauma Score: 12 MDM: 12:36 Patient medically screened. rn 14:13 Differential diagnosis: closed head injury, contusion, fracture, sprain, strain. Data rn reviewed: vital signs, nurses notes, radiologic studies, CT scan, plain films, and as a result, I will discharge patient. Counseling: I had a detailed discussion with the patient and/or guardian regarding: the historical points, exam findings, and any diagnostic results supporting the discharge/admit diagnosis, radiology results, the need for outpatient follow up, to return to the emergency department if symptoms worsen or persist or if there are any questions or concerns that arise at home. Special discussion: Based on the patient's history, exam and DX evaluation, there is no indication for emergent intervention or inpatient TX. It is understood by the patient/guardian that if the SXs persist or worsen they need to return immediately for re-evaluation. I discussed with the patient/guardian in detail that at this point there is no indication for admission to the hospital. It is understood, however, that if the symptoms persist or worsen the patient needs to return immediately for re-evaluation. 09/14 12:41 Order name: CT Head Brain wo Cont; Complete Time: 14:13 rn 09/14 12:41 Order name: XRAY Pelvis; Complete Time: 14:13 rn Administered Medications: No medications were administered Disposition: 09/14/18 14:14 Discharged to Home. Impression: Superficial injury of head. - Condition is Stable. - Discharge Instructions: Head Injury, Adult. - Medication Reconciliation Form, Thank You Letter, Antibiotic Education, Prescription Opioid Use form. - Follow up: Private Physician; When: As needed; Reason: Recheck today's complaints, Re-evaluation by your physician. - Problem is new. - Symptoms have improved. Signatures: Dispatcher [employer] EDMS Almas Nunez MD MD rn Smirch, Shelby, RN RN ss Dagmar Estrada RN RN Corrections: (The following items were deleted from the chart) 12:42 12:39 Home Meds: Eliquis 5 mg Oral tab 1 tab daily; hb hb 15:48 14:14 09/14/2018 14:14 Discharged to Home. Impression: Superficial injury of head. ss Condition is Stable. Forms are Medication Reconciliation Form, Thank You Letter, Antibiotic Education, Prescription Opioid Use. Follow up: Private Physician; When: As needed; Reason: Recheck today's complaints, Re-evaluation by your physician. Problem is new. Symptoms have improved. rn
[2018-09-14 15:53] VITALS: TEMP 97.9
[2018-09-14 15:54] VITALS: O2SAT 100
[2018-09-14 15:55] VITALS: BP 146/67
== END 2018-09-14 15:48 | disposition home or self-care (01) ==
LOC: ER 12:28
DX: S00.90XA Unspecified superficial injury of unspecified part of head, initial encounter (principal); W01.198A Fall on same level from slipping, tripping and stumbling with subsequent striking against other object, initial encounter; Y93.89 Activity, other specified; Y92.002 Bathroom of unspecified non-institutional (private) residence as the place of occurrence of the external cause; Z95.0 Presence of cardiac pacemaker; I10 Essential (primary) hypertension; I48.91 Unspecified atrial fibrillation; G20 Parkinson's disease
CPT/HCPCS: 70450; 72170; 99284

== ENCOUNTER 2018-12-08 14:27 | Observation (INO) | payer OTHER ==
--- OUTSIDE RECORDS SUMMARY | 2018-12-08 14:29 | XMS REPORT | Continuity of Care Document ---
:1945 Author Organization Interface Problems Problem Status Onset Classification Date Comments Source Date Reported TRAUMATIC [facility] [address] [place] [address] Center [facility] BILLING [address] [place] [address] LIFE FLIGHT # Active [place] [id number] [address] [place] [address] Situational Active Diagnosis 12/25/2015 [place] [facility] TRAUM SUBRAC HEM [facility] W[facility]O [facility] Medications Medication Details Route Status Patient [...] EXAM: XR CHEST 1 VIEW 06/14 - [facility] 1view DX 1view DX /2015 - [facility] DATE: 06/14/2016 10:08 AM CDT [...] EXAM: CT BRAIN WITHOUT CONTRAST 06/14 - [facility] contrast contrast /2015 - Medical CT CT This report was dictated by a [employer]/Fellow. I have personally reviewed the images as [...] were discussed by the Emergency Room resident operations support coordinator with Dr. Kwon in the Neuro ICU at 0310 hours on 06/14/16 Brain-Out Brain-Out EXAM: CT CERVICAL SPINE WITHOUT CONTRAST 06/13 [facility] /2015 - Medical Consult Consult This report was dictated by a [employer]/ Fellow. I have personally reviewed the images [...] Assoc Systolic (mm Hg) 134 12/17/2015 [place] [facility] Encounters Location Location Encounter Encounter Reason Attending ADM DC Status Source Details Type Number For Provider Date Date Visit [facility] [id number] 05/03 05/03 [facility] [id number] [id number]-msmu91 [facility]oc eb65a0 [facility] 7fm79e28-8 05/03 05/03 [facility] [id number]-3369-y /2014 [facility] [id number] Assoc 1k968r [facility] 2y2dt8qp-3 05/03 05/03 [facility] [id number]-[id number] /2014 [facility] [id number] Assoc 886a03 [facility] [id number] 05/03 05/03 [facility] [id number] /2014 [facility] fce-db34da Assoc b435be [facility] v39c79xk-y 05/03 05/03 [facility] [id number] /2014 [facility] [id number] Assoc 452c61 [facility] [id number] 05/03 05/03 [facility] [id number]-[id number] /2014 [facility] 5t1-40q4e0 [facility]oc 8536a5 [facility] 14q90fdy-0 05/03 05/03 [facility] [id number] /2014 [facility] [id number]-5a0cba Assoc 8debb2 [facility] 498r2qw4-6 05/03 05/03 [facility] [id number]-[id number] /2014 [facility] [id number]-ef78b9 Assoc 819da7 [facility] [id number] 05/03 05/03 [facility] [id number] /2014 [facility] [id number]-984h01 Assoc 59e9eb [facility] [id number]-z 05/21 05/21 [facility] [place] [id number]-9 /2014 [facility] [id number] Assoc c07d46 [facility] 08f7e806-3 05/21 05/21 [facility] [id number]-a /2014 [facility] 6de-d4f76e Assoc abb04e [facility] [id number]-s 05/21 05/21 [facility] [id number]-0148-9 /2014 [facility] [id number] Assoc 2c4b5c [facility] 1h1u0ct9-6 05/21 05/21 [facility] [id number] /2014 [facility] 1k7-bc79ik Assoc 26c262 [facility] iiq357w6-h 05/21 05/21 [facility] v6w-5p13-8 /2014 [facility] 3t6-0qszz4 Assoc 8afcd8 [facility] 8216287c-9 05/21 05/21 [facility] q6s-0p2d-l /2014 [facility] g8t-iwva22 Assoc h2d513 [facility] 5c3c073q-3 05/21 05/21 [facility] b58-6570-c /2014 [facility] [id number] Assoc [id number] [facility] y9i6q61u-l 05/21 05/21 [facility] [id number]-[id number] /2014 [facility] 86b-4fdbee Assoc 05797q [facility] m3m0s285-7 05/21 05/21 [facility] [id number] /2014 [facility] [id number] Assoc 33694q [facility] [id number] 06/06 06/06 [facility] 640-44a0-9 /2014 [facility] b03-6rx1v7 Assoc a3cb59 [facility] [id number] 06/06 06/06 [facility] 24b-4ba7-a /2014 [facility] [id number] Assoc 6e0fb9 [facility] [id number] 06/06 06/06 [facility] q13-71w0-8 /2014 [facility] 89e-aj046h Assoc b8d72e [facility] [id number] 06/06 06/06 [facility] z8l-16e3-1 /2014 [facility] 6n0-dxy8u3 Assoc q92930 [facility] [id number] 06/06 06/06 [facility] 5fb-4756-b /2014 [facility] 1db-d1b5ab Assoc 3bcdb8 [facility] [id number]-g 06/06 06/06 [facility] 24b-4a5e-9 /2014 [facility] t56-bwbx47 Assoc 4ddfcc [facility] [id number] 06/06 06/06 [facility] 7bf-45e1-9 /2014 [facility] 39f-89fd01 Assoc bbfa1e [facility] [id number]-[id number] 06/06 06/06 [facility] 809-43b2-8 /2014 [facility] [id number] Assoc 2b6f07 [facility] 705zute0-3 07/12 07/12 [facility] p2x-659p-y /2014 [facility] 7ab-bbdc61 Assoc 133632 [facility] t5t6230g-6 07/12 07/12 [facility] [id number]-a /2014 [facility] t4o-82z1h8 Assoc 6c8c38 [facility] cs2m25mt-t 07/12 07/12 [facility] [id number]-41fc-a /2014 [facility] [id number]-zh2478 Assoc 4e8ae3 [facility] 9843r44n-9 07/12 07/12 [facility] [id number]-1 /2014 [facility] 2cd-ff6acf Assoc ca2e00 [facility] [id number] 07/12 07/12 [facility] [id number]-[id number] /2014 [facility] [id number] Assoc 1ea28b [facility] lrn9i6n6-1 07/12 07/12 [facility] c47-64d5-0 /2014 [facility] [id number] Assoc a68127 [facility] [id number]-4 07/12 07/12 [facility] w53-9dwd-1 /2014 [facility] 625-bc5af7 Assoc 959d3e [facility] w83u72tm-t 07/31 07/31 [facility] [id number]-z /2014 [facility] [id number] Assoc 7e5c43 [facility] i43m4e6g-b 07/31 07/31 [facility] 87f-464b-a /2014 [facility] 98f-k5682l Assoc 30d29c [facility] fj77bhqm-5 07/31 07/31 [facility] 056-490e-a /2014 [facility] [id number] Assoc d12e22 [facility] 8686n1fr-5 07/31 07/31 [facility] [id number]-47aa-a /2014 [facility] 07b-f0fab1 Assoc 588101 [facility] [id number] 07/31 07/31 [facility] 176-4850-9 /2014 [facility] v3r-v71yt5 Assoc 049e22 [facility] 99iq2279-6 07/31 07/31 [facility] fb1-4928-a /2014 [facility] k16-p90s0s Assoc ba1a8e [facility] 8n95xgv6-6 08/01 08/01 [facility] 92e-4fbb-b /2014 [facility] 4i9-43cte3 Assoc 636d26 [facility] 47p51g5m-d 08/01 08/01 [facility] [id number]-402e-8 /2014 [facility] 1g0-8ghe0h Assoc [id number] [facility] 0a050yr1-0 08/01 08/01 [facility] 2bc-4e41-9 /2014 [facility] 828-mls202 Assoc ht3294 [facility] 5f0m7vkw-6 08/01 08/01 [facility] a17-25cy-r /2014 [facility] marilu-b2428f Assoc 75cd71 [facility] [id number] 08/01 08/01 [facility] be9-459a-a /2014 [facility] m6z-b83klb Assoc 7edd38 [facility] 52308446-1 08/01 08/01 [facility] 7y0-0377-4 /2014 [facility] dda-1305e4 Assoc 2z438e [facility] [id number]-2 09/05 09/05 [facility] medication [id number]-[id number] /2014 [facility] 14e-3264b3 Assoc 9u850j [facility] 2cb5r721-5 09/05 09/05 [facility] 361-4382-b /2014 [facility] [id number]-i948i5 Assoc 0996b1 [facility] [place] [facility] p872c80h-g 09/05 09/05 [facility] 9dc-4016-8 /2014 [facility] 7aa-a0ae25 Assoc ta827j [facility] cwhv93j8-2 09/05 09/05 [facility] medication ed9-4680-b /2014 [facility] 03b-a7f2b3 Assoc 9982ed [facility] 68l0ww42-j 09/05 09/05 [facility] medication 100-4789-8 /2014 [facility] ca7-ad2fb4 Assoc 49ff4c [facility] 2qe90653-5 09/05 09/05 [facility] b6p-9saz-5 /2014 [facility] df1-fb6d51 Assoc 0pf020 [facility] 708l045e-2 09/24 09/24 [facility] ee1-4a87-9 /2014 [facility] [id number] Assoc h3m237 [facility] k4j6iq12-3 09/24 09/24 [facility] [id number]-471b-9 /2014 [facility] ad0-17da47 Assoc f8b5ae [facility] 6135b18p-4 09/24 09/24 [facility] fd3-4697-8 /2014 [facility] [id number] Assoc 478030 [facility] 2s1eklhm-4 09/24 09/24 [facility] t29-81r9-0 /2014 [facility] 3k9-75z270 Assoc c9169u [facility] [id number] 09/24 09/24 [facility] 579-4600-a /2014 [facility] 146-891da0 Assoc 213532 [facility] needing 2hbyl3r4-2 12/17 12/17 [facility] anixty 186-4ed9-9 /2015 [facility] medication r5r-e23d67 Assoc 23f3c9 [facility] needing 4170g32v-s 12/17 12/17 [facility] anixty r2d-5647-8 /2015 [facility] medication 75e-881118 Assoc f1f82e [facility] needing [id number]-u 12/17 12/17 [facility] anixty 3bc-48eb-8 /2015 [facility] medication 8c8-urw6q7 Assoc 281d3e [facility] needing 0h5jz5io-6 12/17 12/17 [facility] anixty 3z7-3840-2 /2015 [facility] medication 576-8oz809 Assoc 4b5ff3 [facility] jgjx3v82-m [facility] [id number]-a /2015 [facility] 4bf-0910be Assoc 905789 [facility] 2ngpbk6k-0 [facility] 37e-44a7-9 /2015 [facility] [id number] Assoc 41353f [facility] 468961pn-e [facility] sarya-4c15-a /2015 [facility] [id number]-nr5725 Assoc 0dbd37 [facility] 4d91yj2i-7 [facility] Advice 489-4710-b /2015 [facility] During annalise-c60acc Assoc Business cbcc3f Hours [facility] 00i6s87c-g [facility]ice 49c-4769-a /2015 [facility] During amy-0e1db8 Assoc Business ce1e48 Hours [facility] m9cw712z-8 01/09 01/09 [facility] 0h3-72z6-g /2015 [facility] [id number]-qs0f26 Assoc [id number] Procedures Procedure Code Date Perfomer Comments Source
--- OUTSIDE RECORDS SUMMARY | 2018-12-08 14:30 | XMS REPORT ---
:1945 Author Organization [employer] Care Team Providers Name Role Phone Param [place] Provider Role Unavailable Encounters Encounter Location Date Needs referral [facility] Jul 12, 2015 Needs referral [facility] Aug 01, 2015 Needs referral [facility] Jul 31, 2015 ED medication [facility] Sep 05, 2015 h & p [facility] May 03, 2015 Needs referral [facility] May 21, 2015 Unknown [facility] June 06, 2015 Medications Medication Code System Code Instructions Start Date End Date Status Dosage Viagra MEDISPAN [address]24-948 50 MG Orally Once Sep 09, Oct [...]
--- OUTSIDE RECORDS SUMMARY | 2018-12-08 14:30 | XMS REPORT ---
:1945 Author Organization [employer] Care Team Providers Name Role Phone Param [place] Provider Role Unavailable Encounters Encounter Location Date h & p [facility] May 03, 2015 Needs referral [facility] May 21, 2015 Unknown [facility] June 06, 2015 Social History Social [...]
--- OUTSIDE RECORDS SUMMARY | 2018-12-08 14:30 | XMS REPORT ---
:1945 Author Organization [employer] Care Team Providers Name Role Phone Param [place] Provider Role Unavailable Encounters Encounter Location Date Needs referral [facility] Jul 12, 2015 Needs referral [facility] Aug 01, 2015 Needs referral [facility] Jul 31, 2015 ED medication [facility] Sep 05, 2015 h & p [facility] May 03, 2015 Clinical Advice During Business Hours [facility] Dec Needs referral [facility] May 21, 2015 Refill [facility] January 10, 2016 Unknown [facility] June 06, 2015 Refill [facility] Jan 06, 2016 Refill [facility] Sep 24, 2015 needing anixty medication [facility] Dec 17, 2015 Medications Medication Code System Code Instructions Start Date End Date Status Dosage Xanax MEDISPAN [address] 0.5 MG Orally Dec 17, Active 1 [...]
--- OUTSIDE RECORDS SUMMARY | 2018-12-08 14:30 | XMS REPORT ---
:1945 Author Organization [employer] Care Team Providers Name Role Phone GeorgetteParam lepe Provider Role Unavailable Encounters Encounter Location Date h & p [facility] May 03, 2015 Needs referral [facility] May 21, 2015 Social History [...]
--- OUTSIDE RECORDS SUMMARY | 2018-12-08 14:30 | XMS REPORT ---
:1945 Author Organization [employer] Care Team Providers Name Role Phone Param [place] Provider Role Unavailable Encounters Encounter Location Date Needs referral [facility] Jul 12, 2015 Needs referral [facility] Aug 01, 2015 Needs referral [facility] Jul 31, 2015 ED medication [facility] Sep 05, 2015 h & p [facility] May 03, 2015 Clinical Advice During Business Hours [facility] Dec Needs referral [facility] May 21, 2015 Unknown [facility] June 06, 2015 Refill [facility] Jan 06, 2016 Refill [facility] Sep 24, 2015 needing anixty medication [facility] Dec 17, 2015 Social History Social [...]
--- OUTSIDE RECORDS SUMMARY | 2018-12-08 14:30 | XMS REPORT ---
:1945 Author Organization [employer] Care Team Providers Name Role Phone Param [place] Provider Role Unavailable Encounters Encounter Location Date Needs referral [facility] Jul 12, 2015 h & p [facility] May 03, 2015 Needs referral [facility] May 21, 2015 Unknown [facility] June 06, 2015 Social History [...]
--- OUTSIDE RECORDS SUMMARY | 2018-12-08 14:30 | XMS REPORT ---
:1945 Author Organization [employer] Care Team Providers Name Role Phone Param [place] Provider Role Unavailable Allergies, Adverse Reactions, Alerts Substance Reaction Event Type N.K.D.A. Info Not Available Non Drug Allergy Encounters Encounter Location Date Needs referral [facility] Jul 12, 2015 Needs referral [facility] Aug 01, 2015 Needs referral [facility] Jul 31, 2015 ED medication [facility] Sep 05, 2015 h & p [facility] May 03, 2015 Needs referral [facility] May 21, 2015 Unknown [facility] June 06, 2015 Refill [facility] Sep 24, 2015 needing anixty medication [facility] Dec 17, 2015 Problems Problem Type Condition ICD-9 Code Onset Dates Condition Status Assessment Situational anxiety F41.8 Active Medications Medication Code System Code Instructions Start End Status Dosage Date Date Azilect MEDISPAN 51932-9 1 MG Orally Active 1 tablet 206-00 Once a day Oxybutynin MEDISPAN 00472-6 3.9 MG/24HR Active 1 patch to 322-02 Transdermal skin Metoprolol MEDISPAN 34105-2 25 MG Orally Active 1 tablet Succinate ER 281-01 Once a day Gabapentin MEDISPAN 47857-2 100 mg Orally Active 1 tablet 992-01 twice a day (bid) Carbidopa-Levodopa MEDISPAN 65505-7 25-100 MG Active 1 tablet ER 922-01 Orally every 6 every 6 hrs hours while awake Lovastatin MEDISPAN 21896-3 20 MG Orally Active 1 tablet 576-06 Once a day with a meal Digoxin MEDISPAN 46522-6 250 MCG Orally Active 1 tablet 822-01 Once a day Furosemide MEDISPAN 94231-7 20 MG Orally Active 1 tablet 297-25 Once a day Vitamin B Complex MEDISPAN 80829-8 Orally Active Unknown 5540 Pramipexole MEDISPAN 60777-4 0.75 MG Orally Active 1 tablet Dihydrochloride 019-98 Once a day before bedtime Xanax MEDISPAN 10202-4 0.5 MG Orally Dec 17, 1 tablet 055-01 Three times a 2016 day PRN Ketoconazole MEDISPAN 51843-1 2 % Externally Active Unknown 090-04 Eliquis MEDISPAN 75174-5 5 MG Orally Active 1 capsule 894-21 twice a day (bid) Folic Acid MEDISPAN 75448-1 1 MG Orally Active 1 tablet 507-19 three times a day (tid) Fluconazole MEDISPAN 38386-5 200 MG Orally Active 1 tablet 413-00 Once a week Quetiapine Fumarate MEDISPAN 63211-0 25 MG Orally Active 1 tablet 220-20 [...]
--- OUTSIDE RECORDS SUMMARY | 2018-12-08 14:30 | XMS REPORT ---
:1945 Author Organization [employer] Care Team Providers Name Role Phone Param [place] Provider Role Unavailable Encounters Encounter Location Date Needs referral [facility] Jul 12, 2015 Needs referral [facility] Aug 01, 2015 Needs referral [facility] Jul 31, 2015 ED medication [facility] Sep 05, 2015 h & p [facility] May 03, 2015 Needs referral [facility] May 21, 2015 Unknown [facility] June 06, 2015 Refill [facility] Jan 06, 2016 Refill [facility] Sep 24, 2015 needing anixty medication [facility] Dec 17, 2015 Social History [...]
--- OUTSIDE RECORDS SUMMARY | 2018-12-08 14:30 | XMS REPORT ---
:1945 Author Organization [employer]Works Care Team Providers Name Role Phone Param [place] Provider Role Unavailable Encounters Encounter Location Date Needs referral [facility] Jul 12, 2015 Needs referral [facility] Aug 01, 2015 Needs referral [facility] Jul 31, 2015 ED medication [facility] Sep 05, 2015 h & p [facility] May 03, 2015 Needs referral [facility] May 21, 2015 Unknown [facility] June 06, 2015 Refill [facility] Sep 24, 2015 Social [...]
--- NOTE | 2018-12-08 15:32 | RAD REPORT ---
EXAM DESCRIPTION: CT - Head Brain Wo Cont - 12/08/2018 3:15 pm CLINICAL HISTORY: Fall, weakness, head injury COMPARISON: CT head September 2018 TECHNIQUE: Axial 5 mm thick images of the head were obtained without IV contrast. All CT scans are performed using dose optimization technique as appropriate and may include automated exposure control or mA/KV adjustment according to patient size. FINDINGS: No intracranial hemorrhage, mass, edema or shift of mid-line structures. No acute infarcti on changes seen. Atrophy and chronic ischemic changes match the prior study. Ventricles are in propor tion to volume loss. Arterial and physiologic calcifications are present. No globe or orbital content abnormality. Mastoid air cells and visualized portions of the paranasal sinuses are clear. No acute bony findings. Patient has hyperostosis frontalis interna. IMPRESSION: Atrophy and chronic ischemic change matching the comparison study. No acute intracranial finding.
--- NOTE | 2018-12-08 15:40 | RAD REPORT ---
EXAM DESCRIPTION: RAD - Chest Single View - 12/08/2018 3:12 pm CLINICAL HISTORY: Weakness, found on ground, difficulty breathing COMPARISON: August 2018 TECHNIQUE: AP portable chest image was obtained 1510 hours . FINDINGS: No focal infiltrate, mass or pulmonary edema pattern. Chronic interstitial lung disease is present and stable. Heart and vasculature are normal. No measurable pleural effusion and no pneumoth orax. No acute bony abnormality seen. No acute aortic findings suspected. IMPRESSION: No acute cardiopulmonary process. No significant change from comparison.
[2018-12-08 15:45] LABS: Absolute Monocytes 0.7 K/uL (0.1-1.3); Absolute Neutrophil 5.4 K/uL (1.8-8.0); Basophils % 0.5 % (0-1.3); Eosinophils % 1.9 % (0-4.4); Hematocrit 35.7 % (39.6-49.0); Lymphocytes % 13.4 % (15.3-44.8); MPV 6.9 fL (7.6-11.3); Monocytes % 9.8 % (3.3-12.3); RBC Red Blood Cell Count 3.91 M/uL (4.33-5.43)
[2018-12-08 15:54] LABS: Protime INR 1.33
[2018-12-08 16:10] LABS: Albumin 3.8 g/dL (3.4-5.0); Bilirubin Direct 0.2 mg/dL (0-0.2); Bilirubin Total 0.5 mg/dL (0.2-1.0); CKMB Creatine Kinase MB 3.4 ng/mL (0.3-3.6); Troponin (Emerg Dept Use Only) 0.04 ng/mL (0.0-0.045)
--- NOTE | 2018-12-08 17:16 | EDPHYS ---
Physician Documentation [facility] Name: Kevin Barajas Age: 73 yrs Sex: Male : 1945 Arrival Date: 12/08/2018 Time: 14:31 Bed 25 Private MD: ED Physician Frank Rivera HPI: 12/08 14:55 This 73 yrs old Male presents to ER via EMS with complaints of Fall Injury, kb General Weakness. 14:55 Details of fall: The patient fell from an upright position, while walking. Onset: The kb symptoms/episode began/occurred this morning. Associated injuries: The patient sustained no obvious injury. Severity of symptoms: At their worst the symptoms were mild, in the emergency department the symptoms are unchanged. The patient has experienced similar episodes in the past, a few times. The patient has not recently seen a physician. Pt reports he has Parkinson's, lost his footing this morning and fell. Denies any pain or injury. States he has been getting more weak than normal. . Historical: - Allergies: 14:47 No Known Allergies; tw2 - Home Meds: 14:36 carbidopa-levodopa 25-100 mg Oral TbER 2 tabs 3 times per day [Active]; omeprazole 40 tw2 mg Oral cpDR 1 cap once daily [Active]; 14:46 bupropion HCl 100 mg oral tab [Active]; atorvastatin 10 mg oral tab 1 tab [Active]; tw2 oxybutynin chloride 15 mg Oral tr24 1 tab once daily [Active]; quetiapine 25 mg oral tab 1 tab 2 times per day [Active]; Nuplazid 17 mg oral tab 2 tabs once daily [Active]; metoprolol succinate 100 mg oral Tb24 1 tab once daily [Active]; Trintellix 20 mg oral tab 1 tab once daily [Active]; Eliquis 0.5 tab daily oral tab 1 tab 2 times per day [Active]; amlodipine 10 mg tab 1 tab once daily [Active]; gabapentin 100 mg oral cap 1 caps twice a day [Active]; - PMHx: 14:36 Atrial Fib; Depression; Hypertension; Pacemaker; Parkinsons; hallucinations; tw2 - PSHx: 14:36 pacemaker implantation; tw2 - Immunization history:: Adult Immunizations. - Social history:: Smoking status: . - Ebola Screening: : Patient denies travel to an Ebola-affected area in the 21 days before illness onset. ROS: 14:55 Constitutional: Negative for fever, chills, and weight loss, ENT: Negative for injury, kb pain, and discharge, Neck: Negative for injury, pain, and swelling, Cardiovascular: Negative for chest pain, palpitations, and edema, Respiratory: Negative for shortness of breath, cough, wheezing, and pleuritic chest pain, Abdomen/GI: Negative for abdominal pain, nausea, vomiting, diarrhea, and constipation, MS/Extremity: Negative for injury and deformity, Skin: Negative for injury, rash, and discoloration. 14:55 Neuro: Positive for weakness. Exam: 14:55 Constitutional: This is a well developed, well nourished patient who is awake, alert, kb and in no acute distress. Head/Face: Normocephalic, atraumatic. ENT: Nares patent. No nasal discharge, no septal abnormalities noted. Tympanic membranes are normal and external auditory canals are clear. Oropharynx with no redness, swelling, or masses, exudates, or evidence of obstruction, uvula midline. Mucous membranes moist. Neck: Trachea midline, no thyromegaly or masses palpated, and no cervical lymphadenopathy. Supple, full range of motion without nuchal rigidity, or vertebral point tenderness. No Meningismus. Chest/axilla: Normal chest wall appearance and motion. Nontender with no deformity. No lesions are appreciated. Cardiovascular: Regular rate and rhythm with a normal S1 and S2. No gallops, murmurs, or rubs. Normal PMI, no JVD. No pulse deficits. Respiratory: Lungs have equal breath sounds bilaterally, clear to auscultation and percussion. No rales, rhonchi or wheezes noted. No increased work of breathing, no retractions or nasal flaring. Abdomen/GI: Soft, non-tender, with normal bowel sounds. No distension or tympany. No guarding or rebound. No evidence of tenderness throughout. Skin: Warm, dry with normal turgor. Normal color with no rashes, no lesions, and no evidence of cellulitis. MS/ Extremity: Pulses equal, no cyanosis. Neurovascular intact. Full, normal range of motion. 14:55 Neuro: Orientation: to person, place, time, situation, Mentation: able to follow kb commands, Memory: is normal, Motor: moves all fours. Vital Signs: 14:36 BP 109 / 59; Pulse 60; Resp 20; Temp 98.4; Pulse Ox 99% ; lt1 15:34 BP 125 / 56; Pulse 62; Resp 16; Pulse Ox 100% on R/A; tw2 16:34 BP 111 / 79; Pulse 60; Resp 17; Pulse Ox 99% on R/A; tw2 17:16 BP 127 / 66; Pulse 60; Resp 17; Pulse Ox 98% on R/A; tw2 17:30 BP 138 / 71; Pulse 60; Resp 17 S; Pulse Ox 100% on R/A; rv 18:00 BP 164 / 55; Pulse 66; Resp 16 S; Pulse Ox 100% on R/A; rv MDM: 14:38 Patient medically screened. kb 16:53 Data reviewed: vital signs, nurses notes. Data interpreted: Pulse oximetry: on room air kb is 99 %. Interpretation: normal. 17:07 Counseling: I had a detailed discussion with the patient and/or guardian regarding: the kb historical points, exam findings, and any diagnostic results supporting the discharge/admit diagnosis, lab results, radiology results, the need for further work-up and treatment in the hospital. 17:10 Physician consultation: Iris Arreola MD was contacted at 17:10, regarding admission, kb to the telemetry unit. patient's condition, and will see patient in ED, shortly. 17:11 ED course: Spoke with pt regarding results. Asked about use of walker at home. Pt kb reports he does use one when he goes grocery shopping. Then pt asked about checking the pipes to make sure everything was safe. RN reported pt has been trying to get out of bed since arrival. Pt lives alone, [employer] does visit him, but not on a daily basis. Report they have been trying to get pt placed in a [facility] facility, but the family is hard to reach. Baseline mental status is unknown. Will admit for observation for AMS, multiple falls, and social work specialist consult. 12/08 14:51 Order name: Basic Metabolic Panel; Complete Time: 16:52 kb 12/08 14:51 Order name: CBC with Diff; Complete Time: 15:56 kb 12/08 14:51 Order name: LFT's; Complete Time: 16:52 kb 12/08 14:51 Order name: Magnesium; Complete Time: 16:52 kb 12/08 14:51 Order name: NT PRO-BNP; Complete Time: 16:52 kb 12/08 14:51 Order name: PT-INR; Complete Time: 15:56 kb 12/08 14:51 Order name: Troponin (emerg Dept Use Only); Complete Time: 16:52 kb 12/08 14:51 Order name: XRAY Chest (1 view) kb 12/08 14:51 Order name: CPK; Complete Time: 16:52 kb 12/08 14:51 Order name: Ckmb; Complete Time: 16:52 kb 12/08 17:02 Order name: Urine Dipstick--Ancillary (enter results) eb 12/08 17:25 Order name: Vitamin B12 Level EDMS 12/08 17:25 Order name: Folic Acid, (Folate) EDMS 12/08 17:25 Order name: Vitamin D, 25 (OH), TOTAL EDMS 12/08 14:51 Order name: EKG; Complete Time: 14:53 kb 12/08 14:51 Order name: Cardiac monitoring; Complete Time: 14:55 kb 12/08 14:51 Order name: EKG - Nurse/Tech; Complete Time: 14:55 kb 12/08 14:51 Order name: IV Saline Lock; Complete Time: 15:39 kb 12/08 14:51 Order name: Labs collected and sent; Complete Time: 15:39 kb 12/08 14:51 Order name: O2 Per Protocol; Complete Time: 14:56 kb 12/08 14:51 Order name: O2 Sat Monitoring; Complete Time: 14:56 kb 12/08 14:51 Order name: CT Head Brain wo Cont kb 12/08 15:34 Order name: CT; Complete Time: 15:35 EDMS 12/08 15:41 Order name: RAD; Complete Time: 15:42 EDMS 12/08 16:24 Order name: Diet Regular; Complete Time: 16:24 ss 12/08 17:25 Order name: Carotid Artery Bilateral EDMS Administered Medications: No medications were administered Disposition: 19:11 Co-signature as Attending Physician, Frank Rivera MD I agree with the assessment and kdr plan of care. Disposition: 12/08/18 17:15 Hospitalization ordered by Iris Arreola for Observation. Preliminary diagnosis are Fall on same level from slipping, tripping and stumbling - multiple, Altered mental status, unspecified. - Bed requested for Telemetry/MedSurg (observation). - Status is Observation. tw2 - Condition is Stable. - Problem is an ongoing problem. - Symptoms are unchanged. UTI on Admission? No Signatures: Dispatcher [employer] EDMS Stacey Mg, KARLI-C KARLI-Frank Dover MD MD kdr Wise, Tara, RN RN tw2 Asia Durán Corrections: (The following items were deleted from the chart) 14:36 Allergies: No Known Allergies; 14:36 Home Meds: atorvastatin Oral; 14:36 Home Meds: bupropion HCl 50 mg Oral tab nightly; 14:36 Home Meds: Trintellix 20 mg Oral tab once daily; 17:10 14:55 Constitutional: This is a well developed, well nourished patient who is awake, kb alert, and in no acute distress. Head/Face: Normocephalic, atraumatic. ENT: Nares patent. No nasal discharge, no septal abnormalities noted. Tympanic membranes are normal and external auditory canals are clear. Oropharynx with no redness, swelling, or masses, exudates, or evidence of obstruction, uvula midline. Mucous membranes moist. Neck: Trachea midline, no thyromegaly or masses palpated, and no cervical lymphadenopathy. Supple, full range of motion without nuchal rigidity, or vertebral point tenderness. No Meningismus. Chest/axilla: Normal chest wall appearance and motion. Nontender with no deformity. No lesions are appreciated. Cardiovascular: Regular rate and rhythm with a normal S1 and S2. No gallops, murmurs, or rubs. Normal PMI, no JVD. No pulse deficits. Respiratory: Lungs have equal breath sounds bilaterally, clear to auscultation and percussion. No rales, rhonchi or wheezes noted. No increased work of breathing, no retractions or nasal flaring. Abdomen/GI: Soft, non-tender, with normal bowel sounds. No distension or tympany. No guarding or rebound. No evidence of tenderness throughout. Skin: Warm, dry with normal turgor. Normal color with no rashes, no lesions, and no evidence of cellulitis. MS/ Extremity: Pulses equal, no cyanosis. Neurovascular intact. Full, normal range of motion. Neuro: Awake and alert, GCS 15, oriented to person, place, time, and situation. Cranial nerves II-XII grossly intact. Motor strength 5/5 in all extremities. Sensory grossly intact. Cerebellar exam normal. Normal gait. kb 17:11 14:55 Constitutional: This is a well developed, well nourished patient who is awake, kb alert, and in no acute distress. Head/Face: Normocephalic, atraumatic. ENT: Nares patent. No nasal discharge, no septal abnormalities noted. Tympanic membranes are normal and external auditory canals are clear. Oropharynx with no redness, swelling, or masses, exudates, or evidence of obstruction, uvula midline. Mucous membranes moist. Neck: Trachea midline, no thyromegaly or masses palpated, and no cervical lymphadenopathy. Supple, full range of motion without nuchal rigidity, or vertebral point tenderness. No Meningismus. Chest/axilla: Normal chest wall appearance and motion. Nontender with no deformity. No lesions are appreciated. Cardiovascular: Regular rate and rhythm with a normal S1 and S2. No gallops, murmurs, or rubs. Normal PMI, no JVD. No pulse deficits. Respiratory: Lungs have equal breath sounds bilaterally, clear to auscultation and percussion. No rales, rhonchi or wheezes noted. No increased work of breathing, no retractions or nasal flaring. Abdomen/GI: Soft, non-tender, with normal bowel sounds. No distension or tympany. No guarding or rebound. No evidence of tenderness throughout. Skin: Warm, dry with normal turgor. Normal color with no rashes, no lesions, and no evidence of cellulitis. MS/ Extremity: Pulses equal, no cyanosis. Neurovascular intact. Full, normal range of motion. kb 17:11 17:10 Neuro: Orientation: to person, place, time, situation, Mentation: able to follow kb commands, Memory: is normal, Motor: moves all fours, kb 17:50 17:15 Hospitalization Ordered by Iris Arreola MD for Observation. Preliminary eb diagnosis is Fall on same level from slipping, tripping and stumbling - multiple; Altered mental status, unspecified. Bed requested for Telemetry/MedSurg (observation). Status is Observation. Condition is Stable. Problem is an ongoing problem. Symptoms are unchanged. UTI on Admission? No. kb 18:19 17:50 12/08/2018 17:15 Hospitalization Ordered by Iris Arreola MD for Observation. tw2 Preliminary diagnosis is Fall on same level from slipping, tripping and stumbling - multiple; Altered mental status, unspecified. Bed requested for Telemetry/MedSurg (observation). Status is Observation. Condition is Stable. Problem is an ongoing problem. Symptoms are unchanged. UTI on Admission? No. eb
--- NOTE | 2018-12-08 17:16 | ER ---
Nurse's Notes [facility] Name: Kevin Barajas Age: 73 yrs Sex: Male : 1945 Arrival Date: 12/08/2018 Time: 14:31 Bed 25 Private MD: Diagnosis: Fall on same level from slipping, tripping and stumbling-multiple;Altered mental status, unspecified Presentation: 12/08 14:31 Presenting complaint: EMS states: pt lives in [facility] at [facility], the healthcare worker stated he was on the ground, he says he fell at 9 am, lost his footing and states he didn't hit his head or loose consciousness, he is c/o RIGHT elbow but it was from a previous fall the providers state, they noticed that he is getting progressively weaker and groggier. Transition of care: [place] [id number]. Onset of symptoms was December 08, 2018. Risk Assessment: Do you want to hurt yourself or someone else? Patient reports no desire to harm self or others. Initial Sepsis Screen: Does the patient meet any 2 criteria? No. Patient's initial sepsis screen is negative. Does the patient have a suspected source of infection? No. Patient's initial sepsis screen is negative. Care prior to arrival: None. 14:31 Acuity: KHLOE 3 tw2 14:38 Method Of Arrival: EMS: [facility] tw2 14:46 Note pt has [employer] at home provider Marce Castro #[phone]. tw2 Historical: - Allergies: 14:47 No Known Allergies; tw2 - Home Meds: 14:36 carbidopa-levodopa 25-100 mg Oral TbER 2 tabs 3 times per day [Active]; omeprazole 40 tw2 mg Oral cpDR 1 cap once daily [Active]; 14:46 bupropion HCl 100 mg oral tab [Active]; atorvastatin 10 mg oral tab 1 tab [Active]; tw2 oxybutynin chloride 15 mg Oral tr24 1 tab once daily [Active]; quetiapine 25 mg oral tab 1 tab 2 times per day [Active]; Nuplazid 17 mg oral tab 2 tabs once daily [Active]; metoprolol succinate 100 mg oral Tb24 1 tab once daily [Active]; Trintellix 20 mg oral tab 1 tab once daily [Active]; Eliquis 0.5 tab daily oral tab 1 tab 2 times per day [Active]; amlodipine 10 mg tab 1 tab once daily [Active]; gabapentin 100 mg oral cap 1 caps twice a day [Active]; - PMHx: 14:36 Atrial Fib; Depression; Hypertension; Pacemaker; Parkinsons; hallucinations; tw2 - PSHx: 14:36 pacemaker implantation; tw2 - Immunization history:: Adult Immunizations. - Social history:: Smoking status: . - Ebola Screening: : Patient denies travel to an Ebola-affected area in the 21 days before illness onset. Screenin:33 Abuse screen: Denies threats or abuse. Nutritional screening: No deficits noted. tw2 Tuberculosis screening: No symptoms or risk factors identified. Fall Risk Fall in past 12 months (25 points). Secondary diagnosis (15 points) impaired mobility, Parkinsons. Assessment: 14:31 General: Appears in no apparent distress. Behavior is calm, cooperative, appropriate tw2 for age. Pain: Denies pain. Neuro: Level of Consciousness is awake, alert, obeys commands, Oriented to person, place. Cardiovascular: Denies chest pain, shortness of breath, Heart tones S1 S2 Patient's skin is warm and dry. Respiratory: Airway is patent Respiratory effort is even, unlabored, Respiratory pattern is regular, symmetrical, Breath sounds are clear bilaterally. GI: No signs and/or symptoms were reported involving the gastrointestinal system. Abdomen is flat, Bowel sounds present X 4 quads. : No signs and/or symptoms were reported regarding the genitourinary system. EENT: No signs and/or symptoms were reported regarding the EENT system. Derm: Skin is dry. Musculoskeletal: Reports weakness in "all over". 15:30 Reassessment: Patient appears in no apparent distress at this time. No changes from tw2 previously documented assessment. Patient and/or family updated on plan of care and expected duration. Pain level reassessed. 16:30 Reassessment: Patient appears in no apparent distress at this time. No changes from tw2 previously documented assessment. Patient and/or family updated on plan of care and expected duration. Pain level reassessed. 17:12 Reassessment: spoke with Marce at [email or web address] she states she is only there to take tw2 him grocery shopping every 2 weeks, she has noticed that he is not taking care of himself well and she is concerned that he may be over medicating himself, she said he has a daughter who hasnt returned their calls in 6 months and a brother and sister that talked about moving him to an assisted care place closer to where they live but she doesn't have the phone #, she suggested that i call [facility], called and left msg for nurse to call back with contact information. 17:15 Reassessment: Patient appears in no apparent distress at this time. No changes from tw2 previously documented assessment. Patient and/or family updated on plan of care and expected duration. Pain level reassessed. 18:10 Reassessment: Patient appears in no apparent distress at this time. No changes from tw2 previously documented assessment. Patient and/or family updated on plan of care and expected duration. Pain level reassessed. 18:14 Reassessment: pts daughter Stacey Donnelly ph#[phone] , phone number from [facility] [employer]. Vital Signs: 14:36 BP 109 / 59; Pulse 60; Resp 20; Temp 98.4; Pulse Ox 99% ; lt1 15:34 BP 125 / 56; Pulse 62; Resp 16; Pulse Ox 100% on R/A; tw2 16:34 BP 111 / 79; Pulse 60; Resp 17; Pulse Ox 99% on R/A; tw2 17:16 BP 127 / 66; Pulse 60; Resp 17; Pulse Ox 98% on R/A; tw2 17:30 BP 138 / 71; Pulse 60; Resp 17 S; Pulse Ox 100% on R/A; rv 18:00 BP 164 / 55; Pulse 66; Resp 16 S; Pulse Ox 100% on R/A; rv ED Course: 14:31 Patient arrived in ED. tw2 14:31 Bed in low position. Call light in reach. Side rails up X2. campus monitor on. Pulse tw2 ox on. NIBP on. Warm blanket given. 14:38 Stacey Mg FNP-C is PHCP. kb 14:38 Frank Rivera MD is Attending Physician. kb 14:41 Triage completed. tw2 14:41 Arm band placed on. tw2 14:55 Patient moved to MS via stretcher. jg6 14:59 Report given to TC Payne. tw2 15:08 Missed attempt(s): 20 gauge in left antecubital area. lt1 15:08 Missed attempt(s): 22 gauge in right antecubital area. lt1 15:30 Inserted saline lock: 22 gauge in left forearm, using aseptic technique. rv 15:39 Ckmb Sent. rv 15:39 CPK Sent. rv 15:39 CT Head Brain wo Cont Sent. rv 15:39 Basic Metabolic Panel Sent. rv 15:39 CBC with Diff Sent. rv 15:39 LFT's Sent. rv 15:39 Magnesium Sent. rv 15:39 NT PRO-BNP Sent. rv 15:39 PT-INR Sent. rv 15:39 Troponin (emerg Dept Use Only) Sent. rv 15:39 XRAY Chest (1 view) Sent. rv 15:42 Lexi Green RN is Primary Nurse. tw2 17:14 Iris Arreola MD is Hospitalizing Provider. kb 18:03 No provider procedures requiring assistance completed. Patient admitted, IV remains in tw2 place. Administered Medications: No medications were administered Outcome: 17:15 Decision to Hospitalize by Provider. kb 18:04 Admitted to Med/surg accompanied by tech, via stretcher, room 401, with chart, Report tw2 called to TC Perez 18:04 Condition: stable 18:04 Instructed on the need for admit. 18:19 Patient left the ED. tw2 Signatures: Stacey Mg, POULTRY SCALDER-C POULTRY SCALDER-Ckb Lexi Green RN RN tw2 Elmer Lange RN RN Martha Allen [id number] Ute Ruiz lt1 Corrections: (The following items were deleted from the chart) 14:46 14:36 Allergies: No Known Allergies; tw2 tw2 14:46 14:36 Home Meds: atorvastatin Oral; tw2 tw2 14:46 14:36 Home Meds: bupropion HCl 50 mg Oral tab nightly; tw2 tw2 14:46 14:36 Home Meds: Trintellix 20 mg Oral tab once daily; tw2 tw2 16:34 14:33 Fall Risk None identified. tw2 tw2 17:14 14:31 Neuro: Level of Consciousness is awake, alert, obeys commands, Oriented to tw2 person, place, situation, tw2 17:16 16:34 BP 125 / 56; Pulse 62bpm; Resp 16bpm; Pulse Ox 100% RA; tw2 tw2
--- NOTE | 2018-12-08 17:19 | P.HP ---
Certification for Inpatient Patient admitted to: Observation With expected LOS: <2 Midnights Patient will require the following post-hospital care: None Practitioner: I am a practitioner with admitting privileges, knowledge of patient current condition, hospital course, and medical plan of care. Services: Services provided to patient in accordance with Admission requirements found in Title 42 Section 412.3 of the Code of Federal Regulations Patient History Date of Service: 12/09/18 Primary Care Provider: Tiffany Reason for admission: JOSELIN and Syncope with Falls History of Present Illness: Patient is a 73-year-old gentleman with history of Parkinson's dementia who came into the hospital with syncopal episode and multiple falls at the assisted living center. Patient has had similar admissions in the past due to repeated falls. Last time patient was attempted to be placed at a correction facility versus long term however insurance denied the correction facility and family was not being able to contacted for long term placement. Patient thus received physical therapy here for 3 days and was discharged when he was stable for discharge home. However patient lives at an assisted living with few hr of care provider and has been falling frequently at the long term. Last admission it was determined the patient had orthostatics hypotension due to which she had been having syncopal episode and multiple falls. This time patient had similar episodes and thus came to the ER for further workup. Allergies No Known Allergies Allergy (Verified 09/03/18 01:54) Home Medications: Atorvastatin Calcium [Lipitor*] 10 mg PO BEDTIME 09/03/18 Carbidopa/Levodopa 25-100 [Sinemet 25-100*] 2 tab PO TID 09/03/18 Metoprolol Succinate [Toprol Xl] 100 mg PO DAILY 09/03/18 Omeprazole [Prilosec] 40 mg PO DAILY 09/03/18 Oxybutynin Chloride [Oxybutynin Chloride ER] 15 mg PO DAILY 09/03/18 Pimavanserin Tartrate [Nuplazid] 2 tab PO DAILY 09/03/18 Quetiapine Fumarate [Seroquel] 25 mg PO BEDTIME 09/03/18 Vortioxetine Hydrobromide [Trintellix] 20 mg PO DAILY 09/03/18 buPROPion HCl [Bupropion HCl] 100 mg PO DAILY 09/03/18 Amlodipine Besylate [Norvasc] 10 mg PO DAILY #30 tablet 09/12/18 Gabapentin [Neurontin*] 100 mg PO BID #60 cap 09/12/18 Apixaban [Eliquis] 2.5 mg PO BID 12/08/18 Cholecalciferol (Vitamin D3) [Vitamin D3] 2,000 unit PO DAILY 12/08/18 Cyanocobalamin (Vitamin B-12) [Vitamin B-12] 1,000 mcg PO DAILY 12/08/18 Folic Acid 0.8 mg PO DAILY 12/08/18 Magnesium Oxide 500 mg PO DAILY 12/08/18 Polyethylene Glycol 3350 [Miralax] 17 gm PO DAILY 12/08/18 - Past Medical/Surgical History Diabetic: No -: HTN -: Hyperlipidemia -: Parkinson's Disease -: A-fib -: Anxiety -: Depression -: Pacemaker -: Pacemaker placement - Family History Father -: Heart disease Mother -: Cancer - Social History Alcohol use: Yes CD- Drugs: No Caffeine use: Yes Review of Systems 10-point ROS is otherwise unremarkable Physical Examination - Physical Exam General: Alert, In no apparent distress, Oriented x2, Demented HEENT: Atraumatic, PERRLA, Mucous membr. moist/pink, EOMI, Sclerae nonicteric Neck: Supple, 2+ carotid pulse no bruit, No LAD, Without JVD or thyroid abnormality Respiratory: Clear to auscultation bilaterally, Normal air movement Cardiovascular: Regular rate/rhythm, Normal S1 S2 Gastrointestinal: Normal bowel sounds, No tenderness Musculoskeletal: No tenderness Integumentary: No rashes Neurological: Normal gait, Normal speech, Normal strength at 5/5 x4 extr, Normal tone, Normal affect Lymphatics: No axilla or inguinal lymphadenopathy - Studies Laboratory Data (last 24 hrs) 12/08/18 15:30: PT 15.7 H, INR 1.33 12/08/18 15:30: WBC 7.2, Hgb 12.3 L, Hct 35.7 L, Plt Count 193 12/08/18 15:30: Sodium 144, Potassium 4.0, BUN 49 H, Creatinine 1.97 H, Glucose 99, Magnesium 3.0 H D, Total Bilirubin 0.5, AST 21, ALT 9 L, Alkaline Phosphatase 79 Assessment and Plan - Problems (Diagnosis) (1) Fall Onset Date: 09/05/18 Current Visit: No Status: Chronic Plan: Repeated fall secondary to syncopal episode secondary to orthostatic hypotension most likely due to autonomic dysfunction due to Parkinson's disease -fall precautions given. -PT consulted will wait for recommendations -patient may benefit from placement in a permanent long term versus correction facility to help with gait training. Qualifiers: Encounter type: initial encounter Qualified Code(s): W19.XXXA - Unspecified fall, initial encounter (2) JOSELIN (acute kidney injury) Onset Date: 09/05/18 Current Visit: No Status: Acute Plan: Acute kidney injury most likely secondary to dehydration or versus fall -IV fluids at this time. Will monitor closely while here in the hospital -BUN and creatinine elevated at this time (3) Atrial fibrillation Onset Date: 04/07/16 Current Visit: No Status: Chronic Plan: Patient with history of atrial fibrillation -will restart rate control medication. -Currently patient is not on any anti coagulation due to high risk of fall and recent acute blood loss anemia. Qualifiers: Atrial fibrillation type: chronic Qualified Code(s): I48.2 - Chronic atrial fibrillation (4) Parkinson disease Onset Date: 09/05/18 Current Visit: No Status: Chronic Discharge Plan: Other Plan to discharge in: 72 Hours - Advance Directives Does patient have a Living Will: No Does patient have a Durable POA for Healthcare: No - Code Status/Comfort Care Code Status Assessed: Yes Critical Care: No
[2018-12-08] MEDS ORDERED: ONDANSETRON 4 MG/2 ML VIAL IV PRN (17:59)
[2018-12-08] MEDS ORDERED: ACETAMINOPHEN 500 MG TAB PO PRN (17:59)
--- NOTE | 2018-12-08 18:57 | RAD REPORT ---
EXAM DESCRIPTION: US - CP - 12/08/2018 6:00 pm CLINICAL HISTORY: Fall, syncope COMPARISON: None. TECHNIQUE: Real-time sonographic evaluation of both carotid systems was performed. Ruby scale and Do ppler interrogation were performed with waveform tracing bilaterally. FINDINGS: Normal high resistance waveforms are noted in both external carotid arteries. The common c arotid arteries and internal carotid arteries show normal low resistance waveforms. Calcified plaquing changes are present at each carotid bulb. Visually there is no significant luminal narrowing. Peak systolic and end diastolic velocity values and the ICA/CCA ratios are in the non-hem odynamically significant range. Antegrade flow seen in both vertebral arteries. Velocity values and ratios were recorded and are retained in the patient's imaging records. IMPRESSION: Calcified plaquing changes in each carotid bulb. No visual evidence for significant rufino nal narrowing. Velocity values and ratios also indicate no significant stenosis.
[2018-12-08 19:55] LABS: Urine Blood NEGATIVE (NEG); Urine Glucose NEGATIVE (NEG); Urine Protein 1+ (NEG); Urine pH 6.5 (5.0-7.0)
[2018-12-08 21:04] VITALS: BMI 24.3
[2018-12-08] MEDS: NA CHLORIDE 0.9% 1,000 ML IV SCH (21:20)
[2018-12-08 21:38] LABS: Folic Acid, (Folate) > 20.0 ng/mL (3.1-17.5)
[2018-12-09] MEDS: NA CHLORIDE 0.9% 1,000 ML IV SCH ×2 (05:05→13:53)
[2018-12-09 06:16] LABS: Absolute Lymphocytes (CBC) 0.9 K/uL (0.7-4.9); Absolute Monocytes 0.7 K/uL (0.1-1.3); Absolute Neutrophil 5.9 K/uL (1.8-8.0); Basophils % 0.5 % (0-1.3); Eosinophils % 2.4 % (0-4.4); Hematocrit 38.4 % (39.6-49.0); MPV 7.2 fL (7.6-11.3); Monocytes % 9.3 % (3.3-12.3); RBC Red Blood Cell Count 4.18 M/uL (4.33-5.43)
[2018-12-09 06:19] LABS: Bilirubin Total 0.6 mg/dL (0.2-1.0); Potassium 4.1 mmol/L (3.5-5.1); Protein, Total 7.6 g/dL (6.4-8.2)
[2018-12-09] MEDS ORDERED: PNEUMOCOCCAL VACCINE 0.5 ML IMVAC ONE (08:00)
--- NOTE | 2018-12-09 14:01 | P.PN ---
Subjective Date of Service: 12/09/18 Primary Care Provider: Tiffany Chief Complaint: JOSELIN and Syncope with Falls Subjective: Tolerating diet, Improving, Working w/ PT, Doing well Review of Systems 10-point ROS is otherwise unremarkable Physical Examination - Vital Signs Temperature: 97.2 F Blood Pressure: 127/61 Pulse: 64 Respirations: 18 Pulse Ox (%): 98 - Physical Exam General: Alert, In no apparent distress HEENT: Atraumatic, PERRLA, EOMI Neck: Supple, JVD not distended Respiratory: Clear to auscultation bilaterally, Normal air movement Cardiovascular: Regular rate/rhythm, Normal S1 S2 Gastrointestinal: Normal bowel sounds, No tenderness Musculoskeletal: No tenderness Integumentary: No rashes Neurological: Normal speech, Normal tone, Normal affect, Abnormal gait Lymphatics: No axilla or inguinal lymphadenopathy - Studies Laboratory Data (last 24 hrs) 12/08/18 15:30: PT 15.7 H, INR 1.33 12/08/18 15:30: WBC 7.2, Hgb 12.3 L, Hct 35.7 L, Plt Count 193 12/08/18 15:30: Sodium 144, Potassium 4.0, BUN 49 H, Creatinine 1.97 H, Glucose 99, Magnesium 3.0 H D, Total Bilirubin 0.5, AST 21, ALT 9 L, Alkaline Phosphatase 79 Medications List Reviewed: Yes Assessment And Plan - Current Problems (Diagnosis) (1) Fall Onset Date: 09/05/18 Current Visit: No Status: Chronic Plan: Repeated fall secondary to syncopal episode secondary to orthostatic hypotension most likely due to autonomic dysfunction due to Parkinson's disease -fall precautions given. -PT consulted will wait for recommendations -patient may benefit from placement in a permanent custodial versus intermediate facility to help with gait training. Qualifiers: Encounter type: initial encounter Qualified Code(s): W19.XXXA - Unspecified fall, initial encounter (2) JOSELIN (acute kidney injury) Onset Date: 09/05/18 Current Visit: No Status: Acute Plan: Acute kidney injury most likely secondary to dehydration or versus fall -IV fluids at this time. Will monitor closely while here in the hospital -BUN and creatinine improving at this time (3) Atrial fibrillation Onset Date: 04/07/16 Current Visit: No Status: Chronic Plan: Patient with history of atrial fibrillation -will restart rate control medication. -Currently patient is not on any anti coagulation due to high risk of fall and recent acute blood loss anemia. Qualifiers: Atrial fibrillation type: chronic Qualified Code(s): I48.2 - Chronic atrial fibrillation (4) Parkinson disease Onset Date: 09/05/18 Current Visit: No Status: Chronic Discharge Plan: Longterm Plan to discharge in: 48 Hours - Code Status/Comfort Care Code Status Assessed: Yes Critical Care: No
[2018-12-09] MEDS: APIXABAN 2.5 MG TABLET PO SCH (20:57)
[2018-12-09] MEDS: ATORVASTATIN 10 MG TAB PO SCH (20:57)
[2018-12-09] MEDS: CARBIDOPA/LEVODOPA 25/100 TAB PO SCH (20:58)
[2018-12-09] MEDS: GABAPENTIN 100 MG CAP PO SCH (20:58)
[2018-12-09] MEDS: QUETIAPINE 25 MG TAB PO SCH (20:58)
[2018-12-10] MEDS: NA CHLORIDE 0.9% 1,000 ML IV SCH ×3 (00:53→20:18)
[2018-12-10 05:39] LABS: Urine Appearance CLEAR; Urine Bilirubin NEGATIVE (NEG); Urine Blood NEGATIVE (NEG); Urine Color YELLOW; Urine Glucose TRACE (NEG); Urine Protein NEGATIVE (NEG); Urine Specific Gravity 1.015 (1.005-1.030); Urine Urobilinogen 0.2 mg/dL (0.2-1.0)
[2018-12-10 05:56] LABS: Urine Microscopic Reflex NO UMIC
[2018-12-10] MEDS: PANTOPRAZOLE 40MG TABLET PO SCH (06:16)
[2018-12-10] MEDS ORDERED: HOME MED 1 EA UNK (Omeprazole [Prilosec] 40 MG) PO SCH (09:00)
[2018-12-10] MEDS: HOME MED 1 EA UNK (Pimavanserin Tartrate [Nuplazid] 2 TAB) PO SCH (09:00)
[2018-12-10] MEDS: HOME MED 1 EA UNK (Vortioxetine Hydrobromide [Trintellix] 20 MG) PO SCH (09:00)
[2018-12-10] MEDS: VITAMIN D 1000 UNIT TAB PO SCH (10:02)
[2018-12-10] MEDS: MAGNESIUM OXIDE 400 MG TAB PO SCH (10:02)
[2018-12-10] MEDS: GABAPENTIN 100 MG CAP PO SCH ×2 (10:03→20:18)
[2018-12-10] MEDS: FOLIC ACID 1 MG TABLET PO SCH (10:03)
[2018-12-10] MEDS: POLYETHYL GLY 3350 17 GM/DOSE PO SCH (10:03)
[2018-12-10] MEDS: buPROPion HCl 100 MG TAB PO SCH (10:03)
[2018-12-10] MEDS: CYANOCOBALAMIN 1,000 MCG TAB PO SCH (10:03)
[2018-12-10] MEDS: APIXABAN 2.5 MG TABLET PO SCH ×2 (10:03→20:18)
[2018-12-10] MEDS: OXYBUTYNIN ER 5 MG TAB PO SCH (10:04)
[2018-12-10] MEDS: AMLODIPINE 10 MG TAB PO SCH (10:04)
[2018-12-10] MEDS: METOPROLOL XL 100 MG TAB PO SCH (10:05)
--- NOTE | 2018-12-10 10:23 | P.PN ---
Subjective Date of Service: 12/10/18 Primary Care Provider: Tiffany Chief Complaint: JOSELIN and Syncope with Falls Subjective: No C/O voiced (While working with PT yesterday Pt had sever orthostatic Hypotension.), Tolerating diet, Ambulating, Working w/ PT, Doing well Review of Systems 10-point ROS is otherwise unremarkable Physical Examination - Vital Signs Temperature: 97.9 F Blood Pressure: 165/78 Pulse: 68 Respirations: 16 Pulse Ox (%): 99 - Physical Exam General: Alert, In no apparent distress HEENT: Atraumatic, PERRLA, EOMI Neck: Supple, JVD not distended Respiratory: Clear to auscultation bilaterally, Normal air movement Cardiovascular: Regular rate/rhythm, Normal S1 S2 Gastrointestinal: Normal bowel sounds, No tenderness Musculoskeletal: No tenderness Integumentary: No rashes Neurological: Normal speech, Normal tone, Normal affect Lymphatics: No axilla or inguinal lymphadenopathy - Studies Medications List Reviewed: Yes Assessment And Plan - Current Problems (Diagnosis) (1) Fall Onset Date: 09/05/18 Current Visit: No Status: Chronic Plan: Repeated fall secondary to syncopal episode secondary to orthostatic hypotension most likely due to autonomic dysfunction due to Parkinson's disease -fall precautions given. -PT consulted will wait for recommendations -patient may benefit from placement in a permanent skilled nursing versus half-way facility to help with gait training. Qualifiers: Encounter type: initial encounter Qualified Code(s): W19.XXXA - Unspecified fall, initial encounter (2) JOSELIN (acute kidney injury) Onset Date: 09/05/18 Current Visit: No Status: Acute Plan: Acute kidney injury most likely secondary to dehydration or versus fall -IV fluids at this time. Will monitor closely while here in the hospital -BUN and creatinine improving at this time (3) Atrial fibrillation Onset Date: 04/07/16 Current Visit: No Status: Chronic Plan: Patient with history of atrial fibrillation -will restart Home medication. Qualifiers: Atrial fibrillation type: chronic Qualified Code(s): I48.2 - Chronic atrial fibrillation (4) Parkinson disease Onset Date: 09/05/18 Current Visit: No Status: Chronic - Plan Clinical Improvement. Pt is high risk for fall due to his Parkinson disease and autonomic dysfunction causing him to have Orthostatic Hypotension. Further he has box gait due to his PD as well. Pt will benefit from SNF placement vs [facility] placement to prevent Future falls and readmission to the hospital. Discharge Plan: [facility] Plan to discharge in: 48 Hours - Code Status/Comfort Care Code Status Assessed: Yes Critical Care: No
[2018-12-10] MEDS: CARBIDOPA/LEVODOPA 25/100 TAB PO SCH ×3 (10:45→20:18)
[2018-12-10] MEDS: QUETIAPINE 25 MG TAB PO SCH (20:18)
[2018-12-10] MEDS: ATORVASTATIN 10 MG TAB PO SCH (20:18)
[2018-12-11] MEDS: NA CHLORIDE 0.9% 1,000 ML IV SCH ×2 (05:39→15:44)
[2018-12-11] MEDS: PANTOPRAZOLE 40MG TABLET PO SCH (05:39)
[2018-12-11] MEDS: HOME MED 1 EA UNK (Pimavanserin Tartrate [Nuplazid] 2 TAB) PO SCH (09:00)
[2018-12-11] MEDS: HOME MED 1 EA UNK (Vortioxetine Hydrobromide [Trintellix] 20 MG) PO SCH (09:00)
[2018-12-11] MEDS: POLYETHYL GLY 3350 17 GM/DOSE PO SCH (09:35)
[2018-12-11] MEDS: VITAMIN D 1000 UNIT TAB PO SCH (09:36)
[2018-12-11] MEDS: APIXABAN 2.5 MG TABLET PO SCH ×2 (09:36→20:45)
[2018-12-11] MEDS: CYANOCOBALAMIN 1,000 MCG TAB PO SCH (09:36)
[2018-12-11] MEDS: FOLIC ACID 1 MG TABLET PO SCH (09:36)
[2018-12-11] MEDS: CARBIDOPA/LEVODOPA 25/100 TAB PO SCH ×3 (09:36→20:45)
[2018-12-11] MEDS: MAGNESIUM OXIDE 400 MG TAB PO SCH (09:36)
[2018-12-11] MEDS: GABAPENTIN 100 MG CAP PO SCH ×2 (09:36→20:45)
[2018-12-11] MEDS: OXYBUTYNIN ER 5 MG TAB PO SCH (09:37)
[2018-12-11] MEDS: METOPROLOL XL 100 MG TAB PO SCH (09:37)
[2018-12-11] MEDS: buPROPion HCl 100 MG TAB PO SCH (09:37)
[2018-12-11] MEDS: AMLODIPINE 10 MG TAB PO SCH (09:37)
--- NOTE | 2018-12-11 09:43 | P.PN ---
Subjective Date of Service: 12/11/18 Primary Care Provider: Tiffany Chief Complaint: JOSELIN and Syncope with Falls Subjective: No C/O voiced, Tolerating diet, Ambulating, Improving, Working w/ PT (Still having Orthostatic Hypotension while working with Pt), Doing well Review of Systems 10-point ROS is otherwise unremarkable Physical Examination - Vital Signs Temperature: 97.0 F Blood Pressure: 172/81 Pulse: 60 Respirations: 18 Pulse Ox (%): 97 - Physical Exam General: Alert, In no apparent distress HEENT: Atraumatic, PERRLA, EOMI Neck: Supple, JVD not distended Respiratory: Clear to auscultation bilaterally, Normal air movement Cardiovascular: Regular rate/rhythm, Normal S1 S2 Gastrointestinal: Normal bowel sounds, No tenderness Musculoskeletal: No tenderness Integumentary: No rashes Neurological: Normal speech, Normal tone, Normal affect Lymphatics: No axilla or inguinal lymphadenopathy - Studies Medications List Reviewed: Yes Assessment And Plan - Current Problems (Diagnosis) (1) Fall Onset Date: 09/05/18 Current Visit: No Status: Chronic Plan: Repeated fall secondary to syncopal episode secondary to orthostatic hypotension most likely due to autonomic dysfunction due to Parkinson's disease -fall precautions given. -PT consulted will wait for recommendations -patient may benefit from placement in a permanent halfway versus [facility] facility to help with gait training. Qualifiers: Encounter type: initial encounter Qualified Code(s): W19.XXXA - Unspecified fall, initial encounter (2) JOSELIN (acute kidney injury) Onset Date: 09/05/18 Current Visit: No Status: Acute Plan: Acute kidney injury most likely secondary to dehydration or versus fall -IV fluids at this time. Will monitor closely while here in the hospital -BUN and creatinine improving at this time (3) Atrial fibrillation Onset Date: 04/07/16 Current Visit: No Status: Chronic Plan: Patient with history of atrial fibrillation -will restart Home medication. Qualifiers: Atrial fibrillation type: chronic Qualified Code(s): I48.2 - Chronic atrial fibrillation (4) Parkinson disease Onset Date: 09/05/18 Current Visit: No Status: Chronic - Plan Clinical Improvement. Pt is high risk for fall due to his Parkinson disease and autonomic dysfunction causing him to have Orthostatic Hypotension. Further he has box gait due to his PD as well. Pt will benefit from SNF placement vs [facility] placement to prevent Future falls and readmission to the hospital. Discharge Plan: Home Plan to discharge in: 48 Hours - Code Status/Comfort Care Code Status Assessed: Yes Critical Care: No
[2018-12-11] MEDS: ATORVASTATIN 10 MG TAB PO SCH (20:45)
[2018-12-11] MEDS: QUETIAPINE 25 MG TAB PO SCH (20:45)
[2018-12-12] MEDS: NA CHLORIDE 0.9% 1,000 ML IV SCH (01:52)
[2018-12-12] MEDS: PANTOPRAZOLE 40MG TABLET PO SCH (05:52)
[2018-12-12] MEDS: HOME MED 1 EA UNK (Pimavanserin Tartrate [Nuplazid] 2 TAB) PO SCH (09:00)
[2018-12-12] MEDS: HOME MED 1 EA UNK (Vortioxetine Hydrobromide [Trintellix] 20 MG) PO SCH (09:00)
[2018-12-12] MEDS: METOPROLOL XL 100 MG TAB PO SCH (10:54)
[2018-12-12] MEDS: OXYBUTYNIN ER 5 MG TAB PO SCH (10:54)
[2018-12-12] MEDS: GABAPENTIN 100 MG CAP PO SCH ×2 (10:55→21:13)
[2018-12-12] MEDS: buPROPion HCl 100 MG TAB PO SCH (10:55)
[2018-12-12] MEDS: AMLODIPINE 10 MG TAB PO SCH (10:55)
[2018-12-12] MEDS: CYANOCOBALAMIN 1,000 MCG TAB PO SCH (10:56)
[2018-12-12] MEDS: POLYETHYL GLY 3350 17 GM/DOSE PO SCH (10:56)
[2018-12-12] MEDS: FOLIC ACID 1 MG TABLET PO SCH (10:56)
[2018-12-12] MEDS: APIXABAN 2.5 MG TABLET PO SCH ×2 (10:56→21:12)
[2018-12-12] MEDS: VITAMIN D 1000 UNIT TAB PO SCH (10:56)
[2018-12-12] MEDS: CARBIDOPA/LEVODOPA 25/100 TAB PO SCH ×3 (11:25→21:15)
[2018-12-12] MEDS: MAGNESIUM OXIDE 400 MG TAB PO SCH (11:25)
--- NOTE | 2018-12-12 11:26 | P.PN ---
Subjective Date of Service: 12/12/18 Primary Care Provider: Tiffany Chief Complaint: JOSELIN and Syncope with Falls Patient seen and examined at bedside with RN. Chart reviewed. Case discussed with physical therapy this morning. Patient continues to have orthostatic hypotension working with PT. This morning no complaints to offer Review of Systems 10-point ROS is otherwise unremarkable Physical Examination - Vital Signs Temperature: 97.0 F Blood Pressure: 162/76 Pulse: 66 Respirations: 18 Pulse Ox (%): 98 - Physical Exam General: Alert, In no apparent distress HEENT: Atraumatic, PERRLA, EOMI Neck: Supple, JVD not distended Respiratory: Clear to auscultation bilaterally, Normal air movement Cardiovascular: Regular rate/rhythm, Normal S1 S2 Gastrointestinal: Normal bowel sounds, No tenderness Musculoskeletal: No tenderness Integumentary: No rashes Neurological: Normal speech, Normal tone, Normal affect Lymphatics: No axilla or inguinal lymphadenopathy - Studies Medications List Reviewed: Yes Assessment And Plan - Current Problems (Diagnosis) (1) Fall Onset Date: 09/05/18 Current Visit: No Status: Chronic Plan: Repeated fall secondary to syncopal episode secondary to orthostatic hypotension most likely due to autonomic dysfunction due to Parkinson's disease -fall precautions given. -PT consulted will wait for recommendations -patient may benefit from placement in a permanent care home versus [facility] facility to help with gait training. Qualifiers: Encounter type: initial encounter Qualified Code(s): W19.XXXA - Unspecified fall, initial encounter (2) JOSELIN (acute kidney injury) Onset Date: 09/05/18 Current Visit: No Status: Resolved Plan: Acute kidney injury most likely secondary to dehydration or versus fall -IV fluids at this time. Will monitor closely while here in the hospital -BUN and creatinine improving at this time (3) Atrial fibrillation Onset Date: 04/07/16 Current Visit: No Status: Chronic Plan: Patient with history of atrial fibrillation -will restart Home medication. Qualifiers: Atrial fibrillation type: chronic Qualified Code(s): I48.2 - Chronic atrial fibrillation (4) Parkinson disease Onset Date: 09/05/18 Current Visit: No Status: Chronic - Plan Pending clinical improvement at this time. Wednesday12/10/18 patient was not able to ambulate 250 feet as mentioned by physical therapy note. Patient was only able to ambulate about 40 feet with forward rolling walker. Patient did have orthostatic hypotension at that time. Yesterday physical therapy did not work with patient however nursing staff mentioned that patient did have orthostatic hypotension as well. This morning. Physical therapy was Re consulted and will evaluate the patient for further orthostatic hypotension while ambulating. If patient continues to have orthostatics hypotension. Patient is not currently safe for discharge home and might require placement. If patient has orthostatic hypotension is getting better patient can then be discharged home to follow up with primary care provider outpatient. Patient has Parkinson disease makes him at higher risk for fall at home due to autonomic dysfunction causing orthostatic hypotension along with box gait. Discharge Plan: Other Plan to discharge in: 24 Hours - Code Status/Comfort Care Code Status Assessed: Yes Critical Care: No
[2018-12-12] MEDS: QUETIAPINE 25 MG TAB PO SCH (21:12)
[2018-12-12] MEDS: ATORVASTATIN 10 MG TAB PO SCH (21:13)
[2018-12-13] MEDS: PANTOPRAZOLE 40MG TABLET PO SCH (06:58)
[2018-12-13] MEDS: APIXABAN 2.5 MG TABLET PO SCH ×2 (08:50→20:30)
[2018-12-13] MEDS: VITAMIN D 1000 UNIT TAB PO SCH (08:50)
[2018-12-13] MEDS: POLYETHYL GLY 3350 17 GM/DOSE PO SCH (08:51)
[2018-12-13] MEDS: METOPROLOL XL 100 MG TAB PO SCH (08:51)
[2018-12-13] MEDS: CARBIDOPA/LEVODOPA 25/100 TAB PO SCH ×3 (08:51→20:30)
[2018-12-13] MEDS: buPROPion HCl 100 MG TAB PO SCH (08:52)
[2018-12-13] MEDS: AMLODIPINE 10 MG TAB PO SCH (08:52)
[2018-12-13] MEDS: FOLIC ACID 1 MG TABLET PO SCH (08:53)
[2018-12-13] MEDS: MAGNESIUM OXIDE 400 MG TAB PO SCH (08:53)
[2018-12-13] MEDS: OXYBUTYNIN ER 5 MG TAB PO SCH (08:53)
[2018-12-13] MEDS: CYANOCOBALAMIN 1,000 MCG TAB PO SCH (08:53)
[2018-12-13] MEDS: HOME MED 1 EA UNK (Pimavanserin Tartrate [Nuplazid] 2 TAB) PO SCH (08:57)
[2018-12-13] MEDS: GABAPENTIN 100 MG CAP PO SCH ×2 (08:57→20:30)
[2018-12-13] MEDS: HOME MED 1 EA UNK (Vortioxetine Hydrobromide [Trintellix] 20 MG) PO SCH (08:58)
[2018-12-13] MEDS: QUETIAPINE 25 MG TAB PO SCH (20:30)
[2018-12-13] MEDS: ATORVASTATIN 10 MG TAB PO SCH (20:30)
--- NOTE | 2018-12-13 21:41 | PN ---
Date of Progress Note: 12/13/2018 Subjective: The patient was seen and examined. Chart was reviewed and case was discussed with RN. No family at the bedside. I left message for the daughter. Code Status: Full. Physical Examination: Vital Signs: Temperature 97.2, heart rate 60, blood pressure 120/70, respirations 16, and O2 100% on room air. General: Awake, alert, and oriented x2, not in any acute distress. Elderly male. CV: S1, S2. Regular rate and rhythm. Peripheral pulses present. Respiratory: Moving air well bilaterally. No wheezing. Gastrointestinal: Abdomen is soft, nontender, and nondistended. Positive bowel sounds. Extremities: No clubbing, cyanosis, or edema. Neuro: The patient has a pill-rolling tremor, also has shuffling gait. Laboratory Data: Pending. Assessment And Plan: A 73-year-old male with: 1.Fall. The patient has had multiple falls secondary to syncopal episodes due to orthostatic hypote nsion, most likely due to autonomic dysfunction related to his Parkinson's disease. The patient appa rently has not been ambulating 250 feet, has gone about 70 feet with a rolling walker. He does have shuffling gait and is orthostatic as documented by physical therapist, [facility]. 2.Acute kidney injury secondary to dehydration. We will continue IV fluids. We will repeat creatin ine. No NSAIDs. 3.Atrial fibrillation, paroxysmal. We will resume home medications. Continue rate control. Monito r heart rate. 4.Parkinson's disease. Continue home medications. The patient also has dementia. GI and DVT proph ylaxis addressed. Due to the patient's orthostatic hypotension, shuffling gait, and autonomic dysfunction, he is unsafe for discharge without either transition to assisted facility or rehab. We will discuss furth er with Case Management. Unfortunately, unable to reach out to family members. They are not respond ing. Daughter apparently is out of the state at this moment. Continue Eliquis for atrial fibrillati on. Continue PT eval. If unable to be placed into assisted facility, we will need home healt h with PT. The patient does remain high risk for falls. We will repeat BMP, monitor kidney function . SA/MODL Voice ID: [id number] Report ID: [id number]
[2018-12-14 00:31] VITALS: O2SAT 98
[2018-12-14 04:58] LABS: Hematocrit 37.4 % (39.6-49.0); MPV 6.7 fL (7.6-11.3); RBC Red Blood Cell Count 4.11 M/uL (4.33-5.43)
[2018-12-14] MEDS: PANTOPRAZOLE 40MG TABLET PO SCH (05:15)
[2018-12-14] MEDS: HOME MED 1 EA UNK (Vortioxetine Hydrobromide [Trintellix] 20 MG) PO SCH (09:00)
[2018-12-14] MEDS: HOME MED 1 EA UNK (Pimavanserin Tartrate [Nuplazid] 2 TAB) PO SCH (09:00)
[2018-12-14] MEDS: POLYETHYL GLY 3350 17 GM/DOSE PO SCH (10:02)
[2018-12-14] MEDS: GABAPENTIN 100 MG CAP PO SCH (10:03)
[2018-12-14] MEDS: buPROPion HCl 100 MG TAB PO SCH (10:03)
[2018-12-14] MEDS: OXYBUTYNIN ER 5 MG TAB PO SCH (10:03)
[2018-12-14] MEDS: METOPROLOL XL 100 MG TAB PO SCH (10:04)
[2018-12-14] MEDS: AMLODIPINE 10 MG TAB PO SCH (10:04)
[2018-12-14] MEDS: APIXABAN 2.5 MG TABLET PO SCH (10:05)
[2018-12-14] MEDS: FOLIC ACID 1 MG TABLET PO SCH (10:05)
[2018-12-14] MEDS: MAGNESIUM OXIDE 400 MG TAB PO SCH (10:05)
[2018-12-14] MEDS: CYANOCOBALAMIN 1,000 MCG TAB PO SCH (10:05)
[2018-12-14] MEDS: VITAMIN D 1000 UNIT TAB PO SCH (10:05)
[2018-12-14] MEDS: CARBIDOPA/LEVODOPA 25/100 TAB PO SCH (10:11)
[2018-12-14 12:21] VITALS: BP 141/67; TEMP 97.4
--- NOTE | 2018-12-15 12:01 | DS ---
Date of Discharge: 12/14/2018 Admitting Diagnoses: 1.Fall. 2.Acute kidney injury. 3.Atrial fibrillation, chronic, on Eliquis. 4.Parkinson disease. Discharge Diagnoses: 1.Fall, likely secondary to orthostatic hypotension. 2.Acute kidney injury, resolved, likely prerenal azotemia. 3.Atrial fibrillation, chronic, on Eliquis. 4.Parkinson disease. 5.Dementia. Hospital Course: The patient is a 73-year-old male with past medical history of Parkinson disease, douglas whitakersusan, comes in with syncopal episode and multiple falls at the assisted living center. The patien t has had multiple admissions previously, was determined to have a fall due to orthostatic hypotensio n and subsequent syncopal episode. The patient was started on IV fluids. His kidney function did im prove and creatinine normalized. His vitamin B12 and folate level were normal. He did not have any elevated white blood cell count. Initially, he did not do well with Physical therapy, however, subse quently was able to ambulate 270 feet with a rolling walker. The patient head CT scan did not show a ny acute changes. Carotid artery ultrasound showed some calcifying plaque in each carotid bulb, but no evidence of significant luminal narrowing. Velocity, values and ratios also indicate no significa nt stenosis. Overall, the patient did well. He did have some episodes of orthostatic hypotension wh en working with physical therapy, however, was counseled regarding waiting before going from sitting to standing or supine to sitting position. He voiced understanding. The patient was initially refer red to senior care facility. However, as the patient is ambulating 270 feet with standby assist and sitting at the edge of the bed unsupported, he did not qualify for senior care placement. Th ere was no family that was available and was contacted multiple times. The patient was then set up w [facility] PT with Home Health. The patient was then discharged in a fair condition. Activity: Fall precautions. Ambulate with assist. Diet: Heart healthy. Followup: Follow up with PCP 2-3 days. Return to ER for worsening condition. Medications: As per medication reconciliation list. Physical Examination: General: Awake, alert, oriented, no acute distress. Elderly male. CV: S1, S2. No murmurs. Respiratory: Moving air well bilaterally. Abdomen: Soft, nontender, nondistended. Positive bowel sounds. Extremities: No clubbing, cyanosis, or edema. Neurologic: Nonfocal. The patient does have resting tremor. SA/MODL Voice ID: [id number] Report ID: [id number]
== END 2018-12-14 14:31 | disposition home health service (06) ==
LOC: ER 14:27 → ERHOLD 17:13 → 4TH 18:05
PROVIDERS: ADMIT Family Medicine; ATTEND Family Medicine
DX: I95.1 Orthostatic hypotension (principal); R55 Syncope and collapse; N17.9 Acute kidney failure, unspecified; I48.2 Chronic atrial fibrillation; Z79.01 Long term (current) use of anticoagulants; G20 Parkinson's disease; F03.90 Unspecified dementia, unspecified severity, without behavioral disturbance, psychotic disturbance, mood disturbance, and anxiety; Z91.81 History of falling; Z23 Encounter for immunization
CPT/HCPCS: 36415 ×3; 70450; 71045; 80048 ×2; 80053; 80076; 81003 ×2; 82306; 82550; 82553; 82607; 82746; 83735; 83880; 84484; 85025 ×2; 85027; 85610; 90670; 93880; 97112 ×5; 97116 ×6; 97163; 99285; G0009; G0378 ×2; J7030 ×10